=== PATIENT | male | born 1945 | race Caucasian/White ===

== ENCOUNTER 2016-09-10 16:49 | Emergency (ER) | payer OTHER ==
[~2016-09-10] VITALS: Ht 182.9 cm; Wt 136.0 kg
[~2016-09-10 16:49] MED LIST: LNX125 PO; METF-383 PO; METO-479 PO; NITR0.4S UT; SYN137 PO; WARF5TAB90 PO
[2016-09-10 16:53] VITALS: TEMP 36.9; Ht 182.9 cm; Wt 136.0 kg
[2016-09-10] MEDS ORDERED: WARF-246 PO (17:35)
[2016-09-10] MEDS ORDERED: GLC850 PO (17:35)
[2016-09-10] MEDS ORDERED: TPRSR/100 PO ×2 (17:35)
[2016-09-10] MEDS ORDERED: JNV100 PO (17:35)
[2016-09-10] MEDS ORDERED: ROSU5TAB9 PO (17:35)
[2016-09-10] MEDS ORDERED: LEVO137T3 PO (17:35)
[2016-09-10 17:41] LABS: BASO % 0.3 %; BASO ABS # 0.02 K/uL (0-0.2); COMPLETE YES; EOS % 1.3 %; HEMATOCRIT 39.4 % (42-52); IG% 0.2 %; LYMPH ABS # 2.06 K/uL (1.2-3.4); MEAN CELL VOLUME 95.4 fL (80-100); MEAN CORPUSCULAR HEMOGLOBIN 32.7 pg (25-34); MEAN CORPUSCULAR HGB CONC 34.3 g/dl (32-36); MEAN PLATELET VOLUME 10.6 fL (7.4-10.4); MONO % 9.5 %; NEUT % 55.7 %; PLATELET COUNT 168 K/uL (130-400); RED BLOOD COUNT 4.13 M/uL (4.7-6.1); WHITE BLOOD COUNT 6.24 K/uL (4.8-10.8)
--- NOTE | 2016-09-10 17:48 | DIAGNOSTIC IMAGING REPORT ---
SINGLE VIEW CHEST CLINICAL HISTORY: Atypical chest pain. FINDINGS: An AP, portable, upright chest radiograph is compared to study dated 02/06/2015 and correlated with chest CT dated 07/18/2014. The examination is degraded by portable technique and patient rotation. A 2-lead cardiac pacemaker is unchanged in position. The heart is enlarged and there is atherosclerotic calcification of the thoracic aorta. The pulmonary vasculature is noncongested. Bilateral calcified pleural plaques are similar to previous. Chronic interstitial thickening is unchanged. No airspace consolidation or large pleural effusion is identified. No pneumothorax is seen. The skeletal structures are osteopenic. The bony thorax is grossly intact. IMPRESSION: 1. Cardiomegaly and cardiac pacemaker. There is no radiographic evidence of congestive failure. 2. Calcified pleural plaques and chronic changes as above are similar to previous. No airspace consolidation or pleural effusion is seen. Electronically signed by: Teodoro Escalante M.D. 09/10/2016 5:47 PM Dictated Date/Time: 09/10/2016 5:45 PM
[2016-09-10 17:52] LABS: INR 2.6 (0.9-1.1); PARTIAL THROMBOPLASTIN RATIO 1.4; PROTHROMBIN TIME (PATIENT) 28.6 SECONDS (9.0-12.0)
[2016-09-10 17:59] LABS: ALT/SGPT 39 U/L (12-78); AST/SGOT 36 U/L (15-37); BLOOD UREA NITROGEN 12 mg/dl (7-18); BUN/CREATININE RATIO 10.6 (10-20); CALCIUM 8.3 mg/dl (8.5-10.1); CARBON DIOXIDE 27 mmol/L (21-32); CHLORIDE 105 mmol/L (98-107); GLUCOSE 165 mg/dl (70-99); POTASSIUM 4.1 mmol/L (3.5-5.1); SODIUM 139 mmol/L (136-145)
[2016-09-10 18:04] LABS: ALKALINE PHOSPHATASE 42 U/L (45-117); CKMB/CK RATIO 1.3 (0-3.0)
[2016-09-10 21:07] VITALS: BP 143/88; PULSE 60; O2SAT 96
--- NOTE | 2016-09-11 01:03 | EMERGENCY ROOM VISIT NOTE ---
History Report prepared by [place]: Rome Fu Under the Supervision of: Dr. Brett Gonzalez M.D. 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 The pain intensity ranges from 2-4/10. He currently rates a pain intensity of 2/ 10. He took 1 Nitro at home without relief. He was given 3 Nitro and 324 mg aspirin in route to the Emergency Room without relief. As per , the patient looked pale and flushed today. He has a history of cardiac stent placement, myocardial infarction. He has a pacemaker in place. He is on Coumadin. Pt denies recent car trips or plane rides, LOC, headache, lightheadedness, fevers, chills, cough, flu-like symptoms, diaphoresis, visual changes, neck pain , breathing difficulties, nausea, vomiting, abdominal pain, back pain, melena, hematochezia, urinary symptoms, numbness, weakness, lymphadenopathy, rash, or other complaints. Source of History: patient Onset: yesterday Position: chest (left) Symptom Intensity: 2/10 currently Timing: waxes/wanes Modifying Factors (Relieving): other (Nitro and Aspirin without relief) Review of Systems See HPI for pertinent positives and negatives. A total of ten systems were reviewed and were otherwise negative. Past Medical & Surgical Medical Problems: (1) Abdominal contusion (2) Back contusion (3) Diabetes mellitus (4) Fall (5) Heart disease (6) Myocardial infarction (7) Rib contusion (8) Tachy-mirtha syndrome Family History Diabetes mellitus Heart disease Hypertension Social History Smoking Status: Never Smoker Alcohol Use: occasionally Drug Use: none Marital Status: Housing Status: lives with significant other Occupation Status: retired Current/Historical Medications Scheduled Digoxin (Digoxin), 0.125 MG PO DAILY Levothyroxine Sodium (Levothyroxine Sodium), 137 MCG PO DAILY Metformin HCl (Metformin HCl), 850 MG PO BID Metoprolol Succinate (Metoprolol Succinate ER), 100 MG PO QPM Metoprolol Succinate (Metoprolol Succinate ER), 150 MG PO QAM Rosuvastatin Calcium (Rosuvastatin Calcium), 5 MG PO WK Sitagliptin (Januvia), 100 MG PO DAILY Warfarin Sodium (Warfarin Sodium), 10 MG PO DAILY Scheduled PRN Nitroglycerin (Nitrostat), 0.4 MG UT UD PRN for Chest Pain Allergies Uncoded Allergies: PERFUMES/POWDERS (Allergy, Intermediate, WHEEZING/SNEEZING, 07/18/14) Physical Exam Vital Signs Date Time Temp Pulse Resp B/P (MAP) Pulse Ox O2 Delivery O2 Flow Rate FiO2 09/10/16 21:07 60 20 143/88 96 Room Air 09/10/16 20:15 61 20 135/75 96 Room Air 09/10/16 18:18 60 20 136/79 96 09/10/16 17:09 63 09/10/16 16:53 Room Air 09/10/16 16:53 36.9 62 18 139/71 95 Room Air Physical Exam GENERAL: Awake, alert, well-appearing, in no distress HENT: Normocephalic, atraumatic. Oropharynx unremarkable. EYES: Normal conjunctiva. Sclera non-icteric. NECK: Supple. No nuchal rigidity. FROM. No JVD. RESPIRATORY: Clear to auscultation. CARDIAC: Regular rate, normal rhythm. Extremities warm and well perfused. Pulses equal. ABDOMEN: Soft, non-distended. No tenderness to palpation. No rebound or guarding. No masses. RECTAL: Deferred. MUSCULOSKELETAL: Chest examination reveals no tenderness. The back is symmetrical on inspection without obvious abnormality. There is no CVA tenderness to palpation. No joint edema. LOWER EXTREMITIES: Calves are equal size bilaterally and non-tender. Trace edema. No discoloration. NEURO: Normal sensorium. No sensory or motor deficits noted. SKIN: No rash or jaundice noted. Medical Decision & Procedures ER Provider Diagnostic Interpretation: X-ray: Per my interpretation, radiologist review. SINGLE VIEW CHEST CLINICAL HISTORY: Atypical chest pain. FINDINGS: An AP, portable, upright chest radiograph is compared to study dated 02/06/2015 and correlated with chest CT dated 07/18/2014. The examination is degraded by portable technique and patient rotation. A 2-lead cardiac pacemaker is unchanged in position. The heart is enlarged and there is atherosclerotic calcification of the thoracic aorta. The pulmonary vasculature is noncongested. Bilateral calcified pleural plaques are similar to previous. Chronic interstitial thickening is unchanged. No airspace consolidation or large pleural effusion is identified. No pneumothorax is seen. The skeletal structures are osteopenic. The bony thorax is grossly intact. IMPRESSION: 1. Cardiomegaly and cardiac pacemaker. There is no radiographic evidence of congestive failure. 2. Calcified pleural plaques and chronic changes as above are similar to previous. No airspace consolidation or pleural effusion is seen. Electronically signed by: Teodoro Escalante M.D. 09/10/2016 5:47 PM Dictated Date/Time: 09/10/2016 5:45 PM Laboratory Results 09/10/16 17:30 Red Blood Count 4.13, Mean Corpuscular Volume 95.4, Mean Corpuscular Hemoglobin 32.7, Mean Corpuscular Hemoglobin Concent 34.3, Mean Platelet Volume 10.6, Neutrophils (%) (Auto) 55.7, Lymphocytes (%) (Auto) 33.0, Monocytes (%) (Auto) 9.5, Eosinophils (%) (Auto) 1.3, Basophils (%) (Auto) 0.3, Neutrophils # (Auto) 3.48, Lymphocytes # (Auto) 2.06, Monocytes # (Auto) 0.59, Eosinophils # (Auto) 0.08, Basophils # (Auto) 0.02 09/10/16 17:30 Test 09/10/16 17:30 White Blood Count 6.24 K/uL (4.8-10.8) Red Blood Count 4.13 M/uL (4.7-6.1) Hemoglobin 13.5 g/dL (14.0-18.0) Hematocrit 39.4 % (42-52) Mean Corpuscular Volume 95.4 fL (80-100) Mean Corpuscular Hemoglobin 32.7 pg (25-34) Mean Corpuscular Hemoglobin Concent 34.3 g/dl (32-36) Platelet Count 168 K/uL (130-400) Mean Platelet Volume 10.6 fL (7.4-10.4) Neutrophils (%) (Auto) 55.7 % Lymphocytes (%) (Auto) 33.0 % Monocytes (%) (Auto) 9.5 % Eosinophils (%) (Auto) 1.3 % Basophils (%) (Auto) 0.3 % Neutrophils # (Auto) 3.48 K/uL (1.4-6.5) Lymphocytes # (Auto) 2.06 K/uL (1.2-3.4) Monocytes # (Auto) 0.59 K/uL (0.11-0.59) Eosinophils # (Auto) 0.08 K/uL (0-0.5) Basophils # (Auto) 0.02 K/uL (0-0.2) RDW Standard Deviation 47.3 fL (36.4-46.3) RDW Coefficient of Variation 13.5 % (11.5-14.5) Immature Granulocyte % (Auto) 0.2 % Immature Granulocyte # (Auto) 0.01 K/uL (0.00-0.02) Prothrombin Time 28.6 SECONDS (9.0-12.0) Prothromb Time International Ratio 2.6 (0.9-1.1) Activated Partial Thromboplast Time 36.9 SECONDS (21.0-31.0) Partial Thromboplastin Ratio 1.4 Anion Gap 7.0 mmol/L (3-11) Est Creatinine Clear Calc Drug Dose 89.2 ml/min Estimated GFR () 78.4 Estimated GFR (Non- 67.7 BUN/Creatinine Ratio 10.6 (10-20) Calcium Level 8.3 mg/dl (8.5-10.1) Total Bilirubin 0.4 mg/dl (0.2-1) Direct Bilirubin < 0.1 mg/dl (0-0.2) Aspartate Amino Transf (AST/SGOT) 36 U/L (15-37) Alanine Aminotransferase (ALT/SGPT) 39 U/L (12-78) Alkaline Phosphatase 42 U/L (45-117) Total Creatine Kinase 157 U/L (39-308) Creatine Kinase MB 2.0 ng/ml (0.5-3.6) Creatine Kinase MB Ratio 1.3 (0-3.0) Troponin I < 0.015 ng/ml (0-0.045) Total Protein 7.5 gm/dl (6.4-8.2) Albumin 3.5 gm/dl (3.4-5.0) Lipase 171 U/L (73-393) Digoxin Level 0.4 ng/ml (0.8-2.0) Laboratory results reviewed by me ECG Indication: chest pain Rate (beats per minute): 65 Rhythm: other (Atrial paced rhythm) Findings: no acute ischemic change, left axis deviation, no ectopy ED Course 1656: The patient was evaluated in room B12A. A complete history and physical exam was performed. Medication Reconciliation: I attest that I have personally reviewed the patient' s current medication list Blood pressure screening: Patient was found to have an elevated blood pressure and was referred to their primary doctor for recheck and further treatment. 1844: I reevaluated the patient. His pain has resolved. 1858: I discussed the patient's case with Dr. Hogan, sprayer hand with [facility]. He agreed with the plan of getting a second troponin and then having the patient follow up as an outpatient. 1957: I reevaluated the patient. He is agreeable to getting a second troponin. He currently denies any pain and is comfortable with going home. 2114: I reevaluated the patient. Discussed results and discharge instructions: He verbalized understanding and agreement. The patient is ready for discharge. Medical Decision Triage Nursing notes reviewed. The patient's presentation and history were concerning for chest pain. Etiologies such as musculoskeletal, cardiac ischemia, aortic dissection, pulmonary embolism, pneumonia, pneumothorax, infections, gastrointestinal, as well as others were entertained. The patient was evaluated. He has ongoing chest pain since yesterday. He does note a long history of arthritis "throughout his body". His CBC, chemistry panel, LFTs, lipase, and cardiac markers were unremarkable. His INR was therapeutic. The patient had an unremarkable chest x-ray. His ECG was nonischemic. The patient desired to be discharged. He was feeling better spontaneously. He did decline analgesia initially. Nitroglycerin did not help with his pain prehospital or at home. The patient was willing to stay for a repeat troponin and this was done. This was negative. I did discuss the case with Dr. Hogan of cardiology. Given the findings and duration of symptoms it was felt that this was unlikely a cardiac etiology and he will have the patient follow-up in the office. The patient and family felt very comfortable with this plan of conservative management. He will take it easy and rest. If he has any recurrent symptoms she will come back to the emergency department for reevaluation. I gave my usual and customary discussion regarding this issue. By the evaluation outlined above other emergent etiologies such as those listed in the differential, as well as others, were deemed relatively unlikely. The patient and family were informed about the findings as listed above. All questions were answered and they were pleased with the treatment. Return instructions were outlined and the patient was discharged in stable condition. The patient was referred to cardiology for follow-up first thing next week for a recheck of the current condition. The chart was completed utilizing [employer] voice recognition software. Grammatical errors, random word insertions, pronoun errors, and incomplete sentences are an occasional consequence of this system due to software limitations, ambient noise, and hardware issues. Any formal questions or concerns about the content, text, or information contained within the body of this dictation should be directly addressed to the physician for clarification. Consults Time Called: 1848 Consulting Physician: Dr. Hogan, sprayer hand with [facility] Returned Call: 1858 I discussed the patient's case with Dr. Hogan, sprayer hand with [facility]. He agreed with the plan of getting a second troponin and then having the patient follow up as an outpatient. Impression Primary Impression: Left sided chest pain Scribe Attestation The scribe's documentation has been prepared under my direction and personally reviewed by me in its entirety. I confirm that the note above accurately reflects all work, treatment, procedures, and medical decision making performed by me. Departure Information Dispostion Home / Self-Care Referrals Darren Santos M.D. (PCP) Caleb Griffin, DO Forms HOME CARE DOCUMENTATION FORM, IMPORTANT VISIT INFORMATION Patient Instructions My [facility] Additional Instructions CHEST PAIN INSTRUCTIONS: Acetaminophen(Tylenol) may be used for fever or pain. Use 1000mg every six hours as needed. Avoid using more than 4000mg in a 24 hour period. Rest and drink plenty of fluids as tolerated. No strenuous activities until cleared by cardiology. Continue current medications. Avoid strenuous activities and anything that worsens your pain. Return to the ER immediately for worsening or persistent chest pain, abdominal pain, vomiting, fevers, chest pains, difficulty breathing, worsening of your condition, or as needed. Follow up with your sprayer hand on Tuesday for a recheck of your current condition. Call the office at 8:30 AM and tell the certified legal secretary specialist you were in the Emergency Room and on-call cardiology was aware.
[2017-03-01] MEDS ORDERED: ASPEC81 PO (11:12)
[2017-03-01] MEDS ORDERED: PLV75 PO (11:12)
== END 2016-09-10 21:15 | disposition home or self-care (01) ==
LOC: EDBD 16:49 → C.EDB 16:50
DX: R07.9 Chest pain, unspecified (principal); I25.2 Old myocardial infarction; E11.9 Type 2 diabetes mellitus without complications; I49.5 Sick sinus syndrome; I51.7 Cardiomegaly; J92.9 Pleural plaque without asbestos; Z95.5 Presence of coronary angioplasty implant and graft; Z95.0 Presence of cardiac pacemaker; Z79.01 Long term (current) use of anticoagulants; Z79.84 Long term (current) use of oral hypoglycemic drugs; Z83.3 Family history of diabetes mellitus; Z82.49 Family history of ischemic heart disease and other diseases of the circulatory system

== ENCOUNTER 2017-02-26 09:34 | Inpatient (IN) | payer OTHER ==
[~2017-02-26] VITALS: Ht 182.9 cm; Wt 128.0 kg
[~2017-02-26 09:34] MED LIST changes: +GLC850 PO; +JNV100 PO; +LEVO137T3 PO; -METF-383 PO; -METO-479 PO; +ROSU5TAB9 PO; -SYN137 PO; +TPRSR/100 PO; +WARF-246 PO; -WARF5TAB90 PO
[2017-02-26] MEDS ORDERED: NITROGLYCERIN OINT 2% 1GM PACKET EXT ONE (10:00)
[2017-02-26 10:12] LABS: BASO % 0.3 %; BASO ABS # 0.02 K/uL (0-0.2); EOS % 1.9 %; HEMATOCRIT 40.6 % (42-52); IG% 0.2 %; LYMPH % 22.4 %; LYMPH ABS # 1.42 K/uL (1.2-3.4); MEAN CELL VOLUME 96.7 fL (80-100); MEAN CORPUSCULAR HGB CONC 35.2 g/dl (32-36); MEAN PLATELET VOLUME 11.5 fL (7.4-10.4); MONO % 7.3 %; NEUT % 67.9 %; PLATELET COUNT 138 K/uL (130-400); WHITE BLOOD COUNT 6.33 K/uL (4.8-10.8)
[2017-02-26 10:24] LABS: INR 2.2 (0.9-1.1); PARTIAL THROMBOPLASTIN RATIO 1.3; PROTHROMBIN TIME (PATIENT) 24.1 SECONDS (9.0-12.0)
[2017-02-26 10:33] LABS: BUN/CREATININE RATIO 11.2 (10-20); CALCIUM 8.8 mg/dl (8.5-10.1); CREATININE 1.11 mg/dl (0.60-1.40); POTASSIUM 3.9 mmol/L (3.5-5.1)
[2017-02-26 10:44] LABS: CKMB/CK RATIO 2.5 (0-3.0)
--- NOTE | 2017-02-26 10:47 | DIAGNOSTIC IMAGING REPORT ---
CHEST ONE VIEW PORTABLE HISTORY: Atypical CHEST PAIN COMPARISON: Chest 09/10/2016. FINDINGS: Bilateral calcified pleural plaques are again noted. No new focal lung consolidations to suggest pneumonia. No evidence for pulmonary edema. The heart is top normal in size. Left-sided dual-chamber pacemaker. No pleural effusions. No pneumothorax. IMPRESSION: No acute process within the chest. Bilateral calcified pleural plaques are again noted. Electronically signed by: Pio Palencia M.D. 02/26/2017 10:45 AM Dictated Date/Time: 02/26/2017 10:44 AM
[2017-02-26 11:51] LABS: COMPLETE YES
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
[2017-02-26] MEDS ORDERED: NITROGLYCERIN 0.4 MG SL PER TAB CHARGE SL PRN (12:00)
--- NOTE | 2017-02-26 12:01 | History and Physical ---
History & Physical Date & Time of Service: Feb 26, 2017 at 12:01 Chief Complaint: Chest Pain Primary Care Physician: Darren Santos M.D. 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 During these episodes patient denies shortness of breath, lightheadedness, or headache. No abdominal pain. 1 episode of diarrhea but otherwise usual normally formed stool No changes in urination. Patient took nitro to relieve pain at home. received aspirin on ambulance ride. Patient found to have elevated troponin 0.107. EKG atrial paced 77 bpm with left axis deviation and prolonged AV conduction. Patient seen by cardiology Dr. Meyer in the ED. Patient's INR therapeutic level 2.2 Past Medical/Surgical History Medical Problems: (1) Abdominal contusion Status: Resolved (2) Back contusion Status: Resolved (3) Diabetes mellitus Status: Chronic (4) Fall Status: Resolved (5) Heart disease Status: Chronic (6) Myocardial infarction Status: Resolved (7) Rib contusion Status: Resolved (8) Tachy-mirtha syndrome Status: Resolved Family History Diabetes mellitus Heart disease Hypertension Social History Smoking Status: Never Smoker Drug Use: none Marital Status: Occupational Status: retired Immunizations History of Influenza Vaccine: Unknown History of Tetanus Vaccine?: unknown History of Pneumococcal: Unknown History of Hepatitis B Vaccine: Unknown Multi-Drug Resistant Organisms History of MDRO: No Allergies Uncoded Allergies: PERFUMES/POWDERS (Allergy, Intermediate, WHEEZING/SNEEZING, 07/18/14) Home Medications Scheduled Digoxin (Digoxin), 0.125 MG PO DAILY Levothyroxine Sodium (Levothyroxine Sodium), 137 MCG PO DAILY Metformin HCl (Metformin HCl), 850 MG PO BID Metoprolol Succinate (Metoprolol Succinate ER), 100 MG PO QPM Metoprolol Succinate (Metoprolol Succinate ER), 150 MG PO QAM Rosuvastatin Calcium (Rosuvastatin Calcium), 5 MG PO WK Warfarin Sodium (Warfarin Sodium), 10 MG PO DAILY Scheduled PRN Nitroglycerin (Nitrostat), 0.4 MG UT UD PRN for Chest Pain Review of Systems Constitutional: No fever Eyes: No worsening of vision ENT: No hearing loss Respiratory: No cough, No sputum, No wheezing, No shortness of breath, No dyspnea on exertion, No dyspnea at rest, No hemoptysis Cardiovascular: + chest pain, No orthopnea, No edema, No palpitations Abdomen: + diarrhea (1 time), No pain, No nausea, No vomiting, No constipation , No GI bleeding Musculoskeletal: + joint pain (shoulders), + muscle pain (chest), No swelling, No calf pain Genitourinary - Male: No dysuria Neurologic: No numbness/tingling Psychiatric: No substance abuse Endocrine: No fatigue Hematologic / Lymphatic: No abnormal bleeding/bruising, No night sweats Integumentary: No rash, No itch Physical Exam Vital Signs Date Time Temp Pulse Resp B/P (MAP) Pulse Ox O2 Delivery O2 Flow Rate FiO2 02/26/17 11:14 61 135/72 94 Room Air 02/26/17 10:08 60 18 130/78 95 Room Air 02/26/17 09:42 37.2 80 18 126/77 93 Room Air 02/26/17 09:41 70 02/26/17 09:41 93 Room Air General Appearance: WD/WN, no apparent distress Head: normocephalic, atraumatic Eyes: normal inspection, EOMI, sclerae normal ENT: normal ENT inspection, hearing grossly normal, TMs normal, pharynx normal Neck: supple, no JVD, no carotid bruits, trachea midline Respiratory/Chest: chest non-tender, lungs clear, normal breath sounds, no respiratory distress, no accessory muscle use Cardiovascular: regular rate, rhythm, no JVD, normal peripheral pulses Abdomen/GI: normal bowel sounds, non tender, soft, no organomegaly Back: normal inspection, no CVA tenderness, no muscle spasm, normal range of motion Extremities/Musculoskelatal: normal inspection, no calf tenderness, normal capillary refill, no pedal edema, normal range of motion Neurologic/Psych: no motor/sensory deficits, alert, normal mood/affect, oriented x 3 Skin: normal color, warm/dry, no rash Diagnostics Laboratory Results Results Past 24 Hours Test 02/26/17 09:59 Range/Units White Blood Count 6.33 4.8-10.8 K/uL Red Blood Count 4.20 4.7-6.1 M/uL Hemoglobin 14.3 14.0-18.0 g/dL Hematocrit 40.6 42-52 % Mean Corpuscular Volume 96.7 80-100 fL Mean Corpuscular Hemoglobin 34.0 25-34 pg Mean Corpuscular Hemoglobin Concent 35.2 32-36 g/dl Platelet Count 138 130-400 K/uL Mean Platelet Volume 11.5 7.4-10.4 fL Neutrophils (%) (Auto) 67.9 % Lymphocytes (%) (Auto) 22.4 % Monocytes (%) (Auto) 7.3 % Eosinophils (%) (Auto) 1.9 % Basophils (%) (Auto) 0.3 % Neutrophils # (Auto) 4.30 1.4-6.5 K/uL Lymphocytes # (Auto) 1.42 1.2-3.4 K/uL Monocytes # (Auto) 0.46 0.11-0.59 K/uL Eosinophils # (Auto) 0.12 0-0.5 K/uL Basophils # (Auto) 0.02 0-0.2 K/uL RDW Standard Deviation 49.5 36.4-46.3 fL RDW Coefficient of Variation 13.8 11.5-14.5 % Immature Granulocyte % (Auto) 0.2 % Immature Granulocyte # (Auto) 0.01 0.00-0.02 K/uL Red Blood Cell Morphology Unremarkable Prothrombin Time 24.1 9.0-12.0 SECONDS Prothromb Time International Ratio 2.2 0.9-1.1 Activated Partial Thromboplast Time 34.9 21.0-31.0 SECONDS Partial Thromboplastin Ratio 1.3 Sodium Level 136 136-145 mmol/L Potassium Level 3.9 3.5-5.1 mmol/L Chloride Level 102 98-107 mmol/L Carbon Dioxide Level 26 21-32 mmol/L Anion Gap 8.0 3-11 mmol/L Blood Urea Nitrogen 12 7-18 mg/dl Creatinine 1.11 0.60-1.40 mg/dl Est Creatinine Clear Calc Drug Dose 85.8 ml/min Estimated GFR () 77.0 Estimated GFR (Non- 66.5 BUN/Creatinine Ratio 11.2 10-20 Random Glucose 280 70-99 mg/dl Calcium Level 8.8 8.5-10.1 mg/dl Total Bilirubin 0.8 0.2-1 mg/dl Direct Bilirubin 0.2 0-0.2 mg/dl Aspartate Amino Transf (AST/SGOT) 29 15-37 U/L Alanine Aminotransferase (ALT/SGPT) 40 12-78 U/L Alkaline Phosphatase 48 45-117 U/L Total Creatine Kinase 84 39-308 U/L Creatine Kinase MB 2.1 0.5-3.6 ng/ml Creatine Kinase MB Ratio 2.5 0-3.0 Troponin I 0.107 0-0.045 ng/ml Total Protein 7.5 6.4-8.2 gm/dl Albumin 3.4 3.4-5.0 gm/dl Lipase 135 73-393 U/L Diagnostic Radiology CXR Bilateral calcified pleural plaques are again noted. No new focal lung consolidations to suggest pneumonia. No evidence for pulmonary edema. The heart is top normal in size. Left-sided dual-chamber pacemaker. No pleural effusions. No pneumothorax. CXR normal EKG EKG atrial paced 77 bpm with left axis deviation and prolonged AV conduction Impression Assessment and Plan Chest pain with elevated troponin -received aspirin on ambulance ride -Patient found to have elevated troponin 0.107. EKG atrial paced 77 bpm with left axis deviation and prolonged AV conduction -continue home dose Metoprolol Succinate 100 mg qhs and 150 mg daily in the AM -Crestor 5 mg daily -trend troponins, echocardiogram, NPO after midnight if need further cardiac intervention -observation Telemetry -patient seen by cardiology Dr. Meyer on hospital admission, cardiology service to follow patient On anticoagulation coumadin 10 mg daily for history of PCI/stent LCx 2003 with pacemaker -continue coumadin and trend INR -continue home dose digoxin, check digoxin level Diabetes HbA1c is 8 -hold home dose BID metformin, give sliding scale insulin for now Hypothyroidism -137 microgram daily, check TSH level DVT ppx: on coumadin Full Code, next of kin is [place] Celeste [phone] Level of Care Telemetry Resuscitation Status FULL RESUSCITATION VTE Prophylaxis VTE Risk Assessment Done? Y/N: Yes Risk Level: Moderate Given or contraindicated: Warfarin (Coumadin)
[2017-02-26 12:30] VITALS: BP 128/71; PULSE 63; TEMP 37; O2SAT 92; BMI 39.5
[2017-02-26] MEDS ORDERED: NURSING VERBAL MED ORDER ONE ×2 (13:30)
[2017-02-26 13:31] LABS: ESTIMATED AVERAGE GLUCOSE 183 mg/dl; HA1C FLAG Normal (Normal)
[2017-02-26 13:44] LABS: CHOLESTEROL/HDL RATIO 3.4; THYROID STIMULATING HORMONE 1.49 uIu/ml (0.300-4.500)
[2017-02-26] MEDS ORDERED: GLUCAGON FOR INJ 1 MG VIAL SQ PRN (14:00)
[2017-02-26] MEDS ORDERED: GLUCOSE 40% GEL 15 GM TUBE PO PRN (14:00)
[2017-02-26] MEDS ORDERED: GLUCOSE 10 TABS/TUBE PO PRN (14:00)
[2017-02-26] MEDS ORDERED: DEXTROSE 50% 50 ML SYR IV PRN (14:00)
[2017-02-26] MEDS ORDERED: IV FLUIDS COMPLETED PRN (14:30)
--- NOTE | 2017-02-26 15:11 | Progress Note ---
Progress Note Date of Service Feb 26, 2017. Progress Note Called by nurse in regards to second troponin level 0.364 which is an increase from first troponin of 0.107. Patient seen and examined at the bedside. Denies acute chest pain since he was last seen by Dr. Meyer and I in the Emergency room. Telemetry monitoring reviewed and no obvious runs of tachycardia other than artifacts and PVCs. Patient's EKG appears to have some flattening of T waves in leads II and III. Patient otherwise well in appearance and breathing comfortably on room air. Have asked nurse to inform Dr. Meyer about troponin results. As per nurse, Dr. Meyer does not require heparin drip to be started unless there is chest pain symptoms
[2017-02-26 15:22] VITALS: BP 134/71; PULSE 61; TEMP 36.9; O2SAT 95
[2017-02-26] MEDS ORDERED: WARFARIN SOD 5 MG TAB PO SCH (16:00)
[2017-02-26] MEDS: INSULIN ASPART 100 UNITS/ML 3 ML PEN SC SCH ×2 (16:42→20:21)
[2017-02-26] MEDS ORDERED: METFORMIN HCL 850 MG TAB PO SCH (16:45)
--- NOTE | 2017-02-26 17:07 | EMERGENCY ROOM VISIT NOTE ---
History Report prepared by Shasta: Dee Schmidt Under the Supervision of: Dr. Brett Gonzalez M.D. First contact with patient: 09:43 Chief Complaint: CHEST PAIN Stated Complaint: CHEST PAIN Nursing Triage Summary: pt to room b04b via als. pt reports last night episode of chest pain in which he took 3 nitro and pain decreased but did not go away. pt reports this am when he woke he had no pain but then after eating rice chex he again had upper chest pain with radiation to bilat arms and back and took 2 nitro with some relief. pt reports hx of CAD, TX, stent placement, a fib and pacemaker. pt recieved en route to hospital 2 additional nitro and 324mg asa. History of Present Illness The patient is a 71 year old male who presents to the Emergency Room with complaints of constant chest pain beginning last night. The patient reports that he too three nitroglycerin last night with some relief. He notes that his pain began when he was sitting at rest. He states that his arm started to feel heavy when he was walking around last night. Presently, the patient notes some chest discomfort. He reports that at it's worst his pain was a 6/10 but it is now a 2/10. The patient took 2 nitroglycerin this morning and was given two nitroglycerin and a 324 mg of aspirin in the ambulance on his way to the hospital. The patient stated that when his pain didn't resolve this morning he thought he should come into the ED to get checked out. He also reports that his pain is not like when he had his last heart attack. The patient was seen in the ED in September for chest pain. Per family, the patient looked pale when his episode began last night. The patient has a history of CAD, TX, stent placement, arthritis, a fib and pacemaker. Pt notes some diarrhea but denies LOC, headache , sweating during the episode, fevers, chills, visual changes, neck pain, chest muscle soreness, swelling in his legs, breathing difficulties, nausea, vomiting , abdominal pain, back pain, melena, hematochezia, urinary symptoms, numbness, weakness, lymphadenopathy, rash, or other complaints. Source of History: patient Onset: last night Position: chest Symptom Intensity: 2/10 Timing: constant Modifying Factors (Relieving): other (nitroglycerin) Associated Symptoms: + chest pain, + diarrhea, No LOC, No weakness, No numbness Review of Systems See HPI for pertinent positives and negatives. A total of ten systems were reviewed and were otherwise negative. Past Medical & Surgical Medical Problems: (1) Abdominal contusion (2) Back contusion (3) Diabetes mellitus (4) Fall (5) Heart disease (6) Myocardial infarction (7) Rib contusion (8) Tachy-mirtha syndrome Family History Diabetes mellitus Heart disease Hypertension Social History Smoking Status: Never Smoker Alcohol Use: occasionally Drug Use: none Marital Status: Housing Status: lives with significant other Occupation Status: retired Current/Historical Medications Scheduled Digoxin (Digoxin), 0.125 MG PO DAILY Levothyroxine Sodium (Levothyroxine Sodium), 137 MCG PO DAILY Metformin HCl (Metformin HCl), 850 MG PO BID Metoprolol Succinate (Metoprolol Succinate ER), 100 MG PO QPM Metoprolol Succinate (Metoprolol Succinate ER), 150 MG PO QAM Rosuvastatin Calcium (Rosuvastatin Calcium), 5 MG PO WK Warfarin Sodium (Warfarin Sodium), 10 MG PO DAILY Scheduled PRN Nitroglycerin (Nitrostat), 0.4 MG UT UD PRN for Chest Pain Allergies Uncoded Allergies: PERFUMES/POWDERS (Allergy, Intermediate, WHEEZING/SNEEZING, 07/18/14) Physical Exam Vital Signs Date Time Temp Pulse Resp B/P (MAP) Pulse Ox O2 Delivery O2 Flow Rate FiO2 02/26/17 11:14 61 135/72 94 Room Air 02/26/17 10:08 60 18 130/78 95 Room Air 02/26/17 09:42 37.2 80 18 126/77 93 Room Air 02/26/17 09:41 70 02/26/17 09:41 93 Room Air Physical Exam GENERAL: Awake, alert, well-appearing, in no distress HENT: Normocephalic, atraumatic. Oropharynx unremarkable. EYES: Normal conjunctiva. Sclera non-icteric. NECK: Supple. No nuchal rigidity. FROM. No JVD. RESPIRATORY: Clear to auscultation. CARDIAC: Regular rate, normal rhythm. Extremities warm and well perfused. Pulses equal. ABDOMEN: Soft, non-distended. No tenderness to palpation. No rebound or guarding. No masses. RECTAL: Deferred. MUSCULOSKELETAL: Chest examination reveals no tenderness. The back is symmetrical on inspection without obvious abnormality. There is no CVA tenderness to palpation. No joint edema. LOWER EXTREMITIES: Calves are equal size bilaterally and non-tender. No edema. No discoloration. NEURO: Normal sensorium. No sensory or motor deficits noted. SKIN: No rash or jaundice noted. Medical Decision & Procedures ER Provider Diagnostic Interpretation: Radiology results as stated below per my review and radiologist interpretation: CHEST ONE VIEW PORTABLE FINDINGS: Bilateral calcified pleural plaques are again noted. No new focal lung consolidations to suggest pneumonia. No evidence for pulmonary edema. The heart is top normal in size. Left-sided dual-chamber pacemaker. No pleural effusions. No pneumothorax. IMPRESSION: No acute process within the chest. Bilateral calcified pleural plaques are again noted. Electronically signed by: Pio Palencia M.D. Laboratory Results 02/26/17 09:59 Red Blood Count 4.20, Mean Corpuscular Volume 96.7, Mean Corpuscular Hemoglobin 34.0, Mean Corpuscular Hemoglobin Concent 35.2, Mean Platelet Volume 11.5, Neutrophils (%) (Auto) 67.9, Lymphocytes (%) (Auto) 22.4, Monocytes (%) (Auto) 7.3, Eosinophils (%) (Auto) 1.9, Basophils (%) (Auto) 0.3, Neutrophils # (Auto) 4.30, Lymphocytes # (Auto) 1.42, Monocytes # (Auto) 0.46, Eosinophils # (Auto) 0.12, Basophils # (Auto) 0.02 02/26/17 09:59 Test 02/26/17 09:59 White Blood Count 6.33 K/uL (4.8-10.8) Red Blood Count 4.20 M/uL (4.7-6.1) Hemoglobin 14.3 g/dL (14.0-18.0) Hematocrit 40.6 % (42-52) Mean Corpuscular Volume 96.7 fL (80-100) Mean Corpuscular Hemoglobin 34.0 pg (25-34) Mean Corpuscular Hemoglobin Concent 35.2 g/dl (32-36) Platelet Count 138 K/uL (130-400) Mean Platelet Volume 11.5 fL (7.4-10.4) Neutrophils (%) (Auto) 67.9 % Lymphocytes (%) (Auto) 22.4 % Monocytes (%) (Auto) 7.3 % Eosinophils (%) (Auto) 1.9 % Basophils (%) (Auto) 0.3 % Neutrophils # (Auto) 4.30 K/uL (1.4-6.5) Lymphocytes # (Auto) 1.42 K/uL (1.2-3.4) Monocytes # (Auto) 0.46 K/uL (0.11-0.59) Eosinophils # (Auto) 0.12 K/uL (0-0.5) Basophils # (Auto) 0.02 K/uL (0-0.2) RDW Standard Deviation 49.5 fL (36.4-46.3) RDW Coefficient of Variation 13.8 % (11.5-14.5) Immature Granulocyte % (Auto) 0.2 % Immature Granulocyte # (Auto) 0.01 K/uL (0.00-0.02) Red Blood Cell Morphology Unremarkable Prothrombin Time 24.1 SECONDS (9.0-12.0) Prothromb Time International Ratio 2.2 (0.9-1.1) Activated Partial Thromboplast Time 34.9 SECONDS (21.0-31.0) Partial Thromboplastin Ratio 1.3 Anion Gap 8.0 mmol/L (3-11) Est Creatinine Clear Calc Drug Dose 85.8 ml/min Estimated GFR () 77.0 Estimated GFR (Non- 66.5 BUN/Creatinine Ratio 11.2 (10-20) Estimated Average Glucose 183 mg/dl Hemoglobin A1c 8.0 % (4.5-5.6) Calcium Level 8.8 mg/dl (8.5-10.1) Total Bilirubin 0.8 mg/dl (0.2-1) Direct Bilirubin 0.2 mg/dl (0-0.2) Aspartate Amino Transf (AST/SGOT) 29 U/L (15-37) Alanine Aminotransferase (ALT/SGPT) 40 U/L (12-78) Alkaline Phosphatase 48 U/L (45-117) Total Creatine Kinase 84 U/L (39-308) Creatine Kinase MB 2.1 ng/ml (0.5-3.6) Creatine Kinase MB Ratio 2.5 (0-3.0) Total Protein 7.5 gm/dl (6.4-8.2) Albumin 3.4 gm/dl (3.4-5.0) Triglycerides Level 128 mg/dl (0-150) Cholesterol Level 140 mg/dl (0-200) HDL Cholesterol 41 mg/dl LDL Cholesterol, Calculated 73 mg/dl VLDL Cholesterol, Calculated 26 mg/dl Cholesterol/HDL Ratio 3.4 Lipase 135 U/L (73-393) Thyroid Stimulating Hormone (TSH) 1.490 uIu/ml (0.300-4.500) Laboratory results reviewed by me Medications Administered Medications (Trade) Dose Ordered Sig/Jose Manuel Route Start Time Stop Time Status Last Admin Dose Admin Nitroglycerin (Nitroglycerin 2% Oint) 0.5 inch NOW ONCE EXT 02/26/17 10:00 02/26/17 10:01 DC 02/26/17 10:10 0.5 INCH ECG Indication: chest pain Rate (beats per minute): 77 Rhythm: other (paced rhythm) Findings: no acute ischemic change, left axis deviation, no ectopy Comparison ECG Date: Pre-hospital EKG-Paced rhythm 94 bpm no ischemia no ectopy ED Course 0951: The patient was evaluated in room B4B. A complete history and physical exam was performed. 1000: Nitroglycerin 0.5 inch EXT. 1053: Discussed the patient's case with Dr. Santana Cardiology. He will come in and evaluate the patient. 1125: Discussed the patient's case with Dr. Cruz. The patient will be evaluated for further treatment and disposition. Medical Decision Triage Nursing notes reviewed. The patient's presentation and history were concerning for chest pain. Etiologies such as cardiac ischemia, aortic dissection, pulmonary embolism, pneumonia, pneumothorax, musculoskeletal, infections, gastrointestinal, as well as others were entertained. The patient was evaluated. Clinically is doing well. Prehospital ECG did not reveal any ischemic change. He had nitroglycerin paste applied. He had already been given aspirin. Labs revealed unremarkable CBC and Chemistry panel. The patient has a therapeutic INR. His troponin is mildly elevated concerning for non-ST elevation TX. ECG did not reveal any acute ischemic change. Chest x-ray as above. The patient was educated. Family was informed. I did discuss the case with cardiology as well as internal medicine. The patient was evaluated in the Emergency Room and admitted for further treatment. Blood Pressure Screening Patient's blood pressure: Elevated blood pressure Blood pressure disposition: Referred to PCP (to hospitalist) Consults Time Called: 1050 Consulting Physician: Dr. Santana Cardiology Returned Call: 1053 Discussed the patient's case. He will come in and evaluate the patient. Additional Consults: Time Called: 1123 Consulted Physician: Dr. Jass Da Silva hospitalist Returned Call: 1122 Additional Comments: Discussed the patient's case. The patient will be evaluated for further treatment and disposition. Impression Primary Impression: NSTEMI (non-ST elevated myocardial infarction) Critical Care I have personally spent greater than 30 minutes of critical care time in the direct management of this patient. This includes bedside care, interpretation of diagnostic studies, and testing, discussion with consultants, patient, and family members, and other required patient management activities. This 30 minutes is in excess of all separately billable procedures. Scribe Attestation The scribe's documentation has been prepared under my direction and personally reviewed by me in its entirety. I confirm that the note above accurately reflects all work, treatment, procedures, and medical decision making performed by me. Departure Information Dispostion Being Evaluated By Hospitalist Darren Lawson M.D. (PCP) Patient Instructions My [facility]
[2017-02-26] MEDS: DIGOXIN 0.125 MG TAB PO SCH (17:11)
[2017-02-26 19:13] VITALS: BP 134/77; PULSE 61; TEMP 36.6; O2SAT 95
[2017-02-26] MEDS: METOPROLOL SUCC 50MG EXT REL TAB PO SCH (20:54)
[2017-02-26 23:41] VITALS: BP 127/76; PULSE 64; TEMP 36.9; O2SAT 96
[2017-02-27 03:45] VITALS: BP 122/73; PULSE 59; TEMP 37; O2SAT 96
[2017-02-27] MEDS: LEVOTHYROXINE 137 MCG TAB PO SCH (06:15)
[2017-02-27 06:19] LABS: INR 2.2 (0.9-1.1); PROTHROMBIN TIME (PATIENT) 24.6 SECONDS (9.0-12.0)
[2017-02-27 06:43] LABS: MEAN CELL VOLUME 96.3 fL (80-100); MEAN CORPUSCULAR HEMOGLOBIN 32.6 pg (25-34); MEAN CORPUSCULAR HGB CONC 33.8 g/dl (32-36); MEAN PLATELET VOLUME 11.9 fL (7.4-10.4); PLATELET COUNT 140 K/uL (130-400); RED BLOOD COUNT 4.36 M/uL (4.7-6.1); WHITE BLOOD COUNT 6.89 K/uL (4.8-10.8)
[2017-02-27 06:44] LABS: BASO % 0.4 %; BASO ABS # 0.03 K/uL (0-0.2); COMPLETE YES; EOS % 3.3 %; IG% 0.3 %; LYMPH % 32.5 %; LYMPH ABS # 2.24 K/uL (1.2-3.4); MONO % 8.6 %; NEUT % 54.9 %
[2017-02-27 07:01] LABS: ALB/GLOB RATIO 0.9 (0.9-2); BUN/CREATININE RATIO 10.9 (10-20); CALCIUM 8.6 mg/dl (8.5-10.1); CREATININE 0.89 mg/dl (0.60-1.40); POTASSIUM 3.8 mmol/L (3.5-5.1)
[2017-02-27 07:59] VITALS: BP 145/82; PULSE 61; TEMP 37.1; O2SAT 94
--- NOTE | 2017-02-27 08:25 | ECHOCARDIOGRAM REPORT ---
*NOTICE TO RECEIVING DEMOCRAT AGENCY This information is strictly Confidential and protected under [place] law. [place] law prohibits you from making any further disclosure of this information unless further disclosure is expressly permitted by the written consent of the person to whom it pertains or is authorized by law. A general authorization for the release of medical or other information is not sufficient for this purpose. Hospital accepts no responsibility if the information is made available to any other person, INCLUDING THE PATIENT. Interpretation Summary * Name: SHIRA CUETO Study Date: 02/27/2017 07:52 AM BP: 127/81 mmHg * Patient Location: .2T\S\E218\S\1 HR: 63 * : 1945 (M/d/yyyy) Gender: Male Height: 72 in * Age: 71 yrs Ethnicity: CA Weight: 291 lb * Ordering Physician: Salvatore Regan * Referring Physician: Self, Referred * Performed By: Portia Campo RDCS * * Reason For Study: Chest Pain * BSA: 2.5 m2 * -- Conclusions -- * The left ventricle is normal in size. * Left ventricular systolic function is normal. * Ejection Fraction = 55-60%. * The right ventricular systolic function is normal. * The left atrial size is normal. * Right atrial size is normal. * No significant valvular pathology. Procedure Details * A complete two-dimensional transthoracic echocardiogram was performed (2D, M-mode, Doppler and color flow Doppler). Left Ventricle * The left ventricle is normal in size. * Ejection Fraction = 55-60%. * Left ventricular systolic function is normal. * The left ventricular wall motion is normal. Right Ventricle * The right ventricle is normal size. * There is a pacemaker lead in the right ventricle. * The right ventricular systolic function is normal. Atria * The left atrial size is normal. * Right atrial size is normal. * The interatrial septum is intact with no evidence for an atrial septal defect. Mitral Valve * The mitral valve anatomy is normal. * There is trace mitral regurgitation. Tricuspid Valve * The tricuspid valve anatomy is normal. * Significant tricuspid regurgitation is absent. Aortic Valve * The aortic valve is tricuspid. The leaflet thickness if normal. There is no aortic stenosis, and no significant insufficiency. * No hemodynamically significant valvular aortic stenosis. * There is no significant aortic regurgitation. Pulmonic Valve * The pulmonic valve is not well visualized. Pericardium/Pleural * There is no pericardial effusion. MMode 2D Measurements and Calculations IVSd 1.1 cm IVSs 1.4 cm LVIDd 5.1 cm LVIDs 3.1 cm LVPWd 1.1 cm LVPWs 1.6 cm IVS/LVPW 0.99 FS 38.7 % EDV(Teich) 125.3 ml ESV(Teich) 39.2 ml EF(Teich) 68.7 % EDV(cubed) 134.7 ml ESV(cubed) 31.1 ml EF(cubed) 76.9 % % IVS thick 30.5 % % LVPW thick 55.5 % LV mass(C)d 203.6 grams LV mass(C)dI 81.5 grams/m\S\2 LV mass(C)s 169.3 grams LV mass(C)sI 67.7 grams/m\S\2 SV(Teich) 86.0 ml SI(Teich) 34.4 ml/m\S\2 SV(cubed) 103.6 ml SI(cubed) 41.5 ml/m\S\2 Ao root diam 3.4 cm Ao root area 8.9 cm\S\2 ACS 2.1 cm LA dimension 4.1 cm LA/Ao 1.2 LVAd ap4 31.5 cm\S\2 LVLd ap4 8.9 cm EDV(MOD-sp4) 96.2 ml EDV(sp4-el) 95.0 ml LVAs ap4 18.9 cm\S\2 LVLs ap4 7.8 cm ESV(MOD-sp4) 43.3 ml ESV(sp4-el) 39.1 ml EF(MOD-sp4) 55.0 % EF(sp4-el) 58.9 % LVAd ap2 32.5 cm\S\2 LVLd ap2 9.1 cm EDV(MOD-sp2) 100.0 ml EDV(sp2-el) 98.0 ml LVAs ap2 19.9 cm\S\2 LVLs ap2 7.8 cm ESV(MOD-sp2) 47.4 ml ESV(sp2-el) 42.8 ml EF(MOD-sp2) 52.6 % EF(sp2-el) 56.3 % LVLd %diff 3.2 % EDV(MOD-bp) 99.5 ml LVLs %diff 0.77 % ESV(MOD-bp) 45.0 ml EF(MOD-bp) 54.7 % SV(MOD-sp4) 52.9 ml SI(MOD-sp4) 21.2 ml/m\S\2 SV(MOD-sp2) 52.6 ml SI(MOD-sp2) 21.0 ml/m\S\2 SV(MOD-bp) 54.4 ml SI(MOD-bp) 21.8 ml/m\S\2 SV(sp4-el) 56.0 ml SI(sp4-el) 22.4 ml/m\S\2 SV(sp2-el) 55.2 ml SI(sp2-el) 22.1 ml/m\S\2 Doppler Measurements and Calculations MV E max neil 72.9 cm/sec MV A max neil 66.8 cm/sec MV E/A 1.1 MV dec time 0.29 sec Ao V2 max 119.4 cm/sec Ao max PG 5.7 mmHg Ao max PG (full) 0.61 mmHg LV V1 max PG 5.1 mmHg LV V1 max 112.8 cm/sec PA V2 max 102.7 cm/sec PA max PG 4.2 mmHg TR max neil 254.2 cm/sec
[2017-02-27] MEDS: INSULIN ASPART 100 UNITS/ML 3 ML PEN SC SCH ×4 (08:52→20:32)
[2017-02-27] MEDS ORDERED: PHYTONADIONE 5 MG TAB PO STA (09:23)
[2017-02-27] MEDS ORDERED: ASPIRIN 81 MG ECTAB PO STA (09:25)
[2017-02-27] MEDS ORDERED: DC ALL ANTICOAGULANTS ONE (09:30)
[2017-02-27] MEDS ORDERED: CLOPIDOGREL BISULFATE 75 MG TAB PO ONE (09:30)
--- NOTE | 2017-02-27 09:54 | PROGRESS NOTE ---
DATE: 02/27/2017 FOLLOWUP VISIT SUBJECTIVE: The patient is a 71-year-old male with a history of previous chronic atrial fibrillation, tachybrady syndrome and status post permanent pacemaker. The patient was admitted with chest pain. He had similar chest pain in September and at that time, underwent a nuclear stress test that showed an inferior, posterior and lateral myocardial infarction with some campos-infarct ischemia. It was decided to treat him medically. He has done well over the past several months, but as outlined above, he had additional chest pain and was admitted to the hospital. His EKG had no acute changes. His cardiac markers are mildly elevated. He has not had a return of his chest pain and is being admitted to the hospital. OBJECTIVE: GENERAL: He is alert and oriented. VITAL SIGNS: Blood pressure is 140/80. Pulse is regular at 60. He is afebrile. HEENT: He is normocephalic. Pupils are equal and reactive to light. Extraocular muscles are intact bilaterally. NECK: The neck veins are flat. Carotids have good upstrokes bilaterally without bruits. Thyroid is nonpalpable. RESPIRATORY: Breath sounds equal bilaterally and clear to auscultation. CARDIOVASCULAR: Heart has a regular rhythm. Normal S1 and S2. No S3 or S4. No cardiac rubs or murmurs. GASTROINTESTINAL: Abdomen is soft and nontender without organomegaly. EXTREMITIES: Free of edema, digit clubbing, or cyanosis. NEUROLOGIC: Grossly intact. SKIN: Warm to touch. LYMPH NODES: Negative to palpation. LABORATORY DATA: INR is 2.2 today. Troponin is 0.43. Creatinine is 0.89 and potassium is 3.8. IMPRESSION: 1. Angina. 2. Known coronary artery disease with previous inferior, posterior and lateral infarct and on a recent nuclear stress test campos-infarct ischemia. 3. Diabetes mellitus. 4. Chronic atrial fibrillation. 5. Permanent pacemaker for tachybrady syndrome. 6. Diabetes. 7. Dyslipidemia with statin intolerance. RECOMMENDATIONS: The patient I believe should undergo a cardiac catheterization. I have explained the risk, benefit and intent to the patient including the potential for catheter based intervention such as balloon angioplasty or intracoronary stenting. The patient is agreeable and we will proceed to the cardiac catheterization tomorrow provided that the patient remains stable. I will reverse his warfarin with vitamin K today. He will be started on aspirin and Plavix.
[2017-02-27] MEDS: ROSUVASTATIN CALCIUM 5 MG TAB PO SCH (10:03)
[2017-02-27] MEDS: METOPROLOL SUCC 50MG EXT REL TAB PO SCH ×2 (10:03→20:29)
[2017-02-27 11:35] VITALS: BP 140/76; PULSE 68; TEMP 37.2; O2SAT 94
[2017-02-27 15:20] VITALS: BP 152/76; PULSE 62; TEMP 36.9; O2SAT 94
[2017-02-27] MEDS: DIGOXIN 0.125 MG TAB PO SCH (16:24)
--- NOTE | 2017-02-27 18:38 | Progress Note ---
Internal Med Progress Note Date of Service: Feb 27, 2017. Provider Documentation: SUBJECTIVE: no complain of chest pain scheduled for cardiac cath tomorrow OBJECTIVE: Vital Signs-as noted below Exam: General-no sign of distress, comfortable , conversing Eyes-sclera non icteric , PERRLA/EOMI ENT-moist oral mucosa , normal oropharynx Neck-no thyromegaly , trachea midline Lungs-clear to auscultate , no wheeze or rales Heart-regular S1/S2, no JVD , no lower ext edema Abdomen-soft, non tender Extremities-no rash or deformity Neuro-AAO x3, no focal neurological deficit Lab data as noted below. ASSESSMENT & PLAN: UNSTABLE ANGINA : presented with JEFFRIES , chest heaviness has been having JEFFRIES , heaviness on chest with activity and ambulation for past 1 week had persisted substernal chest heaviness with SOB , diaphoresis , dizzy spell prior to admission symptom improved with Nitro Paste , Aspirin in ED -no ischemic change in EKG mild elevation of troponin pt has known CAD with recent Nc stress test noted to have campos-infract ischemia /ECHO noted to have hypokinesis noted in inferior , post , lateral wall -medical management was recommended as pt did not had angina symptom that point appreciate input from Cardiology given significant cardiac risk factor and ongoing anginal symptom pt will have cardiac cath tomorrow AM pt is started on Aspirin , Plavix cont Beta veda Vit K given for INR 2.2 hold Coumadin CHRONIC AFIB ; cont on digoxin , beta veda Coumadin on hold Vit K given to reverse INR HX OF TACHYBRADY SYNDROME : S/P Pacemaker placement TYPE 2 DM : insulin sliding scale DVT PROPHYLAXIS INR ~2 FULL CODE DISPOSITION expected to return home when medically stable Vital Signs: Date Time Temp Pulse Resp B/P (MAP) Pulse Ox O2 Delivery O2 Flow Rate FiO2 02/28/17 05:33 36.6 73 16 143/79 95 Room Air 02/28/17 04:49 73 143/79 (100) 95 Room Air 02/28/17 04:47 64 16 142/79 (100) 96 Room Air 02/28/17 04:24 36.6 65 19 139/82 (101) 95 Room Air 02/28/17 04:06 Room Air 02/28/17 00:10 36.8 66 18 125/76 (92) 93 Room Air 02/28/17 00:02 Room Air 02/27/17 20:00 Room Air 02/27/17 18:58 36.9 62 19 122/66 (84) 94 Room Air 02/27/17 16:24 62 02/27/17 16:00 Room Air 02/27/17 15:20 36.9 62 18 152/76 (101) 94 Room Air 02/27/17 12:00 Room Air 02/27/17 11:35 37.2 68 19 140/76 (97) 94 Room Air 02/27/17 08:00 Room Air 02/27/17 07:59 37.1 61 20 145/82 (103) 94 Room Air Lab Results: Results Past 24 Hours Test 02/27/17 11:14 02/27/17 16:25 02/27/17 19:56 02/28/17 06:24 Range/Units Bedside Glucose 189 118 145 150 70-99 mg/dl Test 02/28/17 06:36 Range/Units Prothrombin Time 17.2 9.0-12.0 SECONDS Prothromb Time International Ratio 1.6 0.9-1.1
[2017-02-27 18:58] VITALS: BP 122/66; PULSE 62; TEMP 36.9; O2SAT 94
[2017-02-27] MEDS: SODIUM CHLORIDE 0.9% 1000ML 1,000 ML IV SCH (23:50)
[2017-02-28] VITALS (19 sets, daily range): BP systolic 122–153; BP diastolic 68–82; PULSE 58–73; TEMP 36.5–36.9; O2SAT 92–96
[2017-02-28] MEDS: LEVOTHYROXINE 137 MCG TAB PO SCH (06:17)
[2017-02-28 07:01] LABS: INR 1.6 (0.9-1.1); PROTHROMBIN TIME (PATIENT) 17.2 SECONDS (9.0-12.0)
[2017-02-28] MEDS: METOPROLOL SUCC 50MG EXT REL TAB PO SCH ×2 (07:44→20:31)
[2017-02-28] MEDS: SODIUM CHLORIDE 0.9% 1000ML 1,000 ML IV SCH ×3 (07:44→20:32)
[2017-02-28] MEDS: ASPIRIN 81 MG ECTAB PO SCH (07:44)
[2017-02-28] MEDS: ROSUVASTATIN CALCIUM 5 MG TAB PO SCH (07:44)
[2017-02-28] MEDS: CLOPIDOGREL BISULFATE 75 MG TAB PO SCH (07:44)
[2017-02-28] MEDS: INSULIN ASPART 100 UNITS/ML 3 ML PEN SC SCH ×4 (07:49→20:32)
--- NOTE | 2017-02-28 09:14 | Cardiology Follow-Up ---
Subjective General Date of Service: Feb 28, 2017. Chief Complaint: follow up chest pain, NSTEMI Pt evaluation today including: conversation w/ patient, conversation w/ family , physical exam, chart review, lab review, review of studies History of Present Illness The patient is a 71 year old male seen in cardiology follow up , with initial consultation having been performed by Dr Meyer. Pt comfortable during my assessment at 9 am. Had recurrent chest pain at just before 8 am this am , for which he received SL nitro x 1 with resolution of the symptoms which had occurred at rest. Patient describes episodic chest tightness with associated shortness of breath onset 2 days ago. Happens at rest or with minimal activity. Initial EKG on 02/26/[address] depression, which has since resolved. No ST changes on tracings this am , that were performed at the [facility] of recurrent symptoms. Allergies Uncoded Allergies: PERFUMES/POWDERS (Allergy, Intermediate, WHEEZING/SNEEZING, 07/18/14) Social History Smoking Status: Never Smoker Hx Tobacco Use In Past Year?: No Hx Alcohol Use - Type And Amou: No Hx Substance Use - Type And Am: No Problem List Medical Problems: (1) NSTEMI (non-ST elevated myocardial infarction) Status: Acute Physical Exam Vital Signs Last Vital Signs Documentation Date Time Temp Pulse Resp B/P (MAP) Pulse Ox O2 Delivery O2 Flow Rate FiO2 02/28/17 05:33 36.6 73 16 143/79 95 Room Air Physical Exam Constitutional: Level of Distress: NAD Head: normocephalic Neck: supple Lungs: Auscultation: no wheezing, no rales/crackles, no rhonchi Cardiovascular: Heart Auscultation: RRR, no murmurs, no rubs, no gallops Extremities: no edema, no varicosities, pertinent finding (2+ bilateral radial artery pulses ) Neurologic: Gait & Station: pertinent finding (no focal deficits ) Assessment and Plan Assessment and Plan Summary of TTecho performed 02/27/17: * -- Conclusions -- * The left ventricle is normal in size. * Left ventricular systolic function is normal. * Ejection Fraction = 55-60%. * The right ventricular systolic function is normal. * The left atrial size is normal. * Right atrial size is normal. * No significant valvular pathology. Last Resulted 02/27/17 05:49 Red Blood Count 4.36, Mean Corpuscular Volume 96.3, Mean Corpuscular Hemoglobin 32.6, Mean Corpuscular Hemoglobin Concent 33.8, Mean Platelet Volume 11.9, Neutrophils (%) (Auto) 54.9, Lymphocytes (%) (Auto) 32.5, Monocytes (%) (Auto) 8.6, Eosinophils (%) (Auto) 3.3, Basophils (%) (Auto) 0.4, Neutrophils # (Auto) 3.78, Lymphocytes # (Auto) 2.24, Monocytes # (Auto) 0.59, Eosinophils # (Auto) 0.23, Basophils # (Auto) 0.03 Last Resulted 02/27/17 05:49 Past 24 Hours Test 02/28/17 06:36 Range/Units Creatine Kinase MB 1.1 0.5-3.6 ng/ml Creatine Kinase MB Ratio 1.0 0-3.0 Prothromb Time International Ratio 1.6 H 0.9-1.1 Prothrombin Time 17.2 H 9.0-12.0 SECONDS Total Creatine Kinase 107 39-308 U/L Troponin I 0.113 *H 0-0.045 ng/ml Troponin peaked at 0.432 ng/ml and had trended down to 0.113 ng/ml am of 02/28. Impression: 71 year old male 1. NSTEMI, symptoms suggestive of angina, mild troponin elevation 2. H/o Persistent AFib s/p external direct current cardioversion 01/15/2016 and has remained in SR since on EKG and outpatient device checks -on chronic coumadin, coumadin held this am for cardiac cath, INR 1.6 3 . HTN - controlled as outpt 4. Chronic coronary disease status post drug eluting stent implantation left circumflex 2003 -atypical chest discomfort evaluated with 09/2016 nuclear stress testing demonstrating lateral infarct with mild campos-infarct ischemia 5. History VF arrest 2003 in the setting of acute inferior lateral ST elevation [place]. 6. Dyslipidemia goal LDL less than 70 mg per dL - uncontrolled with statin intolerance (most recently intolerant to 10 mg atorvastatin) - non adherent with weekly dose of Crestor 7. JOEY inhibitor induced cough 8. Diabetes type 2 , Hgb A1C 8% this admission Plan: Proceed with cardiac catheterization to be performed today by Dr Yancey of interventional cardiology. ASA 324 this am prior to cath. Will need to determine best PCI strategy after anatomy delineated regarding BMS , DANIELA, or even perhaps surgery given need for coumadin, and potential triple therapy with ASA and clopidogrel, and coumadin if stenting takes place. Pt NPO and agreeable to procedure. Vale Hogan DO Laboratory Results Last 24 Hours Test 02/27/17 11:14 02/27/17 16:25 02/27/17 19:56 02/28/17 06:24 Bedside Glucose 189 mg/dl 118 mg/dl 145 mg/dl 150 mg/dl Test 02/28/17 06:36 Prothrombin Time 17.2 SECONDS Prothromb Time International Ratio 1.6 Total Creatine Kinase 107 U/L Creatine Kinase MB 1.1 ng/ml Creatine Kinase MB Ratio 1.0 Troponin I 0.113 ng/ml
[2017-02-28] MEDS ORDERED: ASPIRIN 81 MG CHEW PO SCH (09:17)
[2017-02-28] MEDS ORDERED: MIDAZOLAM HCL 1 MG/ML 2ML VIAL ONE (09:26)
[2017-02-28] MEDS ORDERED: NiCARDipine HCL INJ 2.5 MG/ML 10 ML AMP ONE (09:26)
[2017-02-28] MEDS ORDERED: HEPARIN SOD (PORCINE) 1000 UNIT/ML 10 ML VIAL ONE ×2 (09:26→11:39)
[2017-02-28] MEDS ORDERED: FENTANYL CITRATE INJ 50 MCG/1 ML 2 ML VIAL ONE (09:26)
[2017-02-28] MEDS ORDERED: NITROGLYCERIN/D5W 100MCG/ML 20ML SYR ONE (09:27)
--- NOTE | 2017-02-28 10:49 | Procedure Note ---
Pre-Mod Sedation Assessment General Date of Moderate Sedation: Feb 28, 2017. Vital Signs: Vital Signs Past 12 Hours Date Time Temp Pulse Resp B/P (MAP) Pulse Ox O2 Delivery O2 Flow Rate FiO2 02/28/17 08:00 Room Air 02/28/17 07:30 36.9 73 20 126/76 (93) 94 Room Air 02/28/17 05:33 36.6 73 16 143/79 95 Room Air 02/28/17 04:49 73 143/79 (100) 95 Room Air 02/28/17 04:47 64 16 142/79 (100) 96 Room Air 02/28/17 04:24 36.6 65 19 139/82 (101) 95 Room Air 02/28/17 04:06 Room Air 02/28/17 00:10 36.8 66 18 125/76 (92) 93 Room Air 02/28/17 00:02 Room Air Review Cardiovascular: regular rate, rhythm, no edema Abdomen: normal bowel sounds, non tender Lungs: chest non-tender, lungs clear Pre-Sedation Airway Assessment Oral Cavity: Dentures Able to Visualize Vocal Cords: No Short Thick Neck: No Hx of Sleep Apnea: No Smoking Status: Never Smoker Mallampati Classification: Class III ASA Classification: Class III Procedure Planning Contraindications-for Mod Sed: None Yes Notes The planned sedation has been discussed with the patient and consent obtained. I have identified the patient, determined the appropriateness of sedation and have assessed the patient immediately prior to the procedure. All medicine(s) and interventions are by my order.
[2017-02-28] MEDS ORDERED: CLOPIDOGREL BISULFATE 300 MG TAB PO ONE (12:21)
--- NOTE | 2017-02-28 12:36 | Procedure Note ---
Post-Mod Sedation Assessment General Date of Moderate Sedation Feb 28, 2017. Vital Signs: Vital Signs Past 12 Hours Date Time Temp Pulse Resp B/P (MAP) Pulse Ox O2 Delivery O2 Flow Rate FiO2 02/28/17 08:00 Room Air 02/28/17 07:30 36.9 73 20 126/76 (93) 94 Room Air 02/28/17 05:33 36.6 73 16 143/79 95 Room Air 02/28/17 04:49 73 143/79 (100) 95 Room Air 02/28/17 04:47 64 16 142/79 (100) 96 Room Air 02/28/17 04:24 36.6 65 19 139/82 (101) 95 Room Air 02/28/17 04:06 Room Air 02/28/17 00:10 36.8 66 18 125/76 (92) 93 Room Air 02/28/17 00:02 Room Air Review - Discharge Criteria Vital Signs Stable: Yes Alert/Oriented/Conversant: Yes Returned to Baseline Mental St: Yes Nausea Absent/Minimal: Yes Pain/Discomfort/Absent/Minimal: Yes Normal/Baseline Respirations: Yes Active Bleeding?: No Pt Received D/C Instructions: N/A Prescriptions Given: None Specific Proced. D/C Criteria Distal Pulses Present (Cardiac: Yes Groin site assessed-Card Cath: N/A Voided Prior To Discharge: N/A Discharged Patients Adult Escort/Transportation: Yes
--- NOTE | 2017-02-28 12:57 | Cardiac Catheterization ---
Procedure Note Procedure Date Feb 28, 2017. Pre-Procedure Diagnosis Non STEMI AUC Score 8 Post-Procedure Diagnosis Severe CAD, Successful PCI, Normal Intracardiac Pressures Procedure(s) Performed Coronary Angiography, Left Heart Cath, Drug Eluting Stent Hairspring Ii Inspector Bc Format Proofreader(s) Heidy Estimated Blood Loss 15 Medication(s) Clopidogrel, Fentanyl, Heparin, Nitroglycerin, Versed, Lidocaine 1% Summary of Findings Indication: Accelerating angina/NSTEMI Access: 6Fr Right Radial Artery Catheters: [place], JL3.5; JR4 guide; EBU 3.5 guide Findings: LM - Luminal irregularities LAD - Calcified proximally with mild disease, 30-40% stenosis at take-off of 2nd diagonal; distal luminal irregularities as wraps around apex. - 1st diagonal with 20% ostial disease - 2nd diagonal with 20-30% ostial disease Circumflex - Moderate caliber vessel, patent mid segment stent with 99% stenosis just distal to prior stent - OM2 with luminal irregularities. RCA - Dominant, large caliber vessel, 90% mid segment stenosis; luminal irregularities in the distal RCA, PDA and PLBs. LVEDP - 1 -- PCI -- Antithrombotic therapy: Heparin, Clopidogrel Procedure: -- RCA -- RCA cannulated with JR4 guide Prowater wire passed across lesion into distal vessel Mid RCA lesion predilated with 3.0 compliant balloon 4.5 x 18 Rafael DANIELA delivered to lesion with aid of guideliner Stent post-dilated with 5.0 noncompliant balloon IC vasodilators administered for spasm Post procedure ALTHEA 3 flow, stent well expanded with minimal residual stenosis and no apparent cardiac complications. -- Circumflex -- LM cannulated with EBU 3.5 guide Prowater wire passed across lesion into distal OM2 Mid Circumflex lesion predilated with 3.0 compliant balloon Lesion stented with 3.0 x 18 [place] DANIELA Stent post-dilated with 3.0 noncompliant balloon IC vasodilators administered for spasm Post procedure ALTHEA 3 flow, stent well expanded with minimal residual stenosis and no apparent cardiac complications. Arterial Closure: TR Band Summary: 1. Severe 2 vessel coronary artery disease - 99% mid circumflex - 90% mid RCA 2. Normal intracardiac filling pressure 3. Successful PCI of mid RCA with 4.5 x 18 [place] DANIELA (post-dilated to 5.0) 4. Successful PCI of mid Circumflex with 3.0 x 18 [place] DANIELA Recommendations: To PCU for continued monitoring Reloaded with clopidogrel in bobcat driver/labor Continue Triple therapy with ASA/Plavix/Coumadin for at least 1 month, then can go forward with coumadin/plavix ideally for 1 year. Continue statin, ASCVD risk factor modification per Dr. Hogan Consult cardiac Rehab Hemodynamics Rest Ao: 110/55/82 Final Ao: 141/71/100 LV: 108/1 Recommendations PCI without planned CABG Specimens None Radiation Exposure (mGy) 4765 Contrast (mls) 220 Visi Fluids (cc crystalloids) 153 NSS Drains None Anesthesia Moderate Procedural Complication(s) None Disposition PCU ACC Data Cardiac Status Clinical evaluation leading to the procedure CAD Presntation: Non STEMI Anginal Classification: CCS IV Heart Failure: No, NYHA Class: CCS I Cardiogenic Shock w/in 24Hrs: No Cardiac Arrest w/in 24Hrs: No Imaging studies past 6 months: Yes Stress studies past 6 months: No Closure Device Percutaneous Entry Location: Radial Closure Device: Radial Band Recommendations: PCI without planned CABG PCI Indication: PCI for high risk Non-STEMI Lesion Segment Name: Mid Circumflex Culprit Artery: Yes Stenosis Prior to Rx (%): 99 Chronic Total Occlusion: No IVUS: No FFR: No Pre-Procedure ALTHEA Flow: 3 Previously Treated Lesion: No Lesion Complexity: Non-High/Non-C Lesion Length (mm): 15 Thrombus Present: No Bifurcation Lesion: No Guidewire Across Lesion: Yes Guidewire: Stenosis Post-Procedure (%): 0 Post-Procedure ALTHEA Flow: 3 Device(s) Deployed: Yes Lesion #2 Segment Name: Mid RCA Culprit Artery: No Stenosis Prior to Rx (%): 90 Chronic Total Occlusion: No IVUS: No FFR: No Pre-Procedure ALTHEA Flow: 3 Previously Treated Lesion: No Lesion Complexity: Non-High/Non-C Lesion Length (mm): 15 Thrombus Present: No Bifurcation Lesion: No Guidewire Across Lesion: Yes Guidewire: Stenosis Post-Procedure (%): 0 Post-Procedure ALTHEA Flow: 3 Device(s) Deployed: Yes Intraprocedure Events Significant Dissection: No Perforation: No
[2017-02-28] MEDS ORDERED: SODIUM CHLORIDE 0.9% 1000ML 1,000 ML IV SCH (13:00)
[2017-02-28] MEDS: DIGOXIN 0.125 MG TAB PO SCH (16:39)
--- NOTE | 2017-02-28 22:42 | Progress Note ---
Internal Med Progress Note Date of Service: Feb 28, 2017. Provider Documentation: SUBJECTIVE: had cardiac cath today found to have severe CAD had PTCA feels much better , no complain of chest pain or SOB no orthopnea hoping to be discharged home tomorrow OBJECTIVE: Vital Signs-as noted below Exam: General-no sign of distress, comfortable , conversing Eyes-sclera non icteric , PERRLA/EOMI ENT-moist oral mucosa , normal oropharynx Neck-no thyromegaly , trachea midline Lungs-clear to auscultate , no wheeze or rales Heart-regular S1/S2, no JVD , no lower ext edema Abdomen-soft, non tender Extremities-no rash or deformity ; rt wrist cardiac cath site intact , no bleeding noted Neuro-AAO x3, no focal neurological deficit Lab data as noted below. ASSESSMENT & PLAN: SEVERE CAD : : presented with unstable angina JEFFRIES , chest heaviness has been having JEFFRIES , heaviness on chest with activity and ambulation for past 1 week had persisted substernal chest heaviness with SOB , diaphoresis , dizzy spell prior to admission symptom improved with Nitro Paste , Aspirin in ED -no ischemic change in EKG mild elevation of troponin pt has known CAD with recent Nc stress test noted to have campos-infract ischemia /ECHO noted to have hypokinesis noted in inferior , post , lateral wall -medical management was recommended as pt did not had angina symptom that point appreciate input from Cardiology given significant cardiac risk factor and ongoing anginal symptom cardiac cath done today found to have 1. Severe 2 vessel coronary artery disease - 99% mid circumflex - 90% mid RCA 2. Normal intracardiac filling pressure 3. Successful PCI of mid RCA with 4.5 x 18 Rafael DANIELA (post-dilated to 5.0) 4. Successful PCI of mid Circumflex with 3.0 x 18 [place] DANIELA cont to monitor pt in PCU will need uninterrupted dual antiplatelet tx with Aspirin and Plavix for 1 year CHRONIC AFIB ; cont on digoxin , beta veda Coumadin will be resumed tomorrow HX OF TACHYBRADY SYNDROME : S/P Pacemaker placement TYPE 2 DM : insulin sliding scale DVT PROPHYLAXIS Coumadin FULL CODE DISPOSITION expected to return home when medically stable Vital Signs: Date Time Temp Pulse Resp B/P (MAP) Pulse Ox O2 Delivery O2 Flow Rate FiO2 02/28/17 19:40 36.7 60 18 132/80 (97) 93 Room Air 02/28/17 18:40 61 21 132/73 (92) 93 Room Air 02/28/17 17:45 68 20 130/72 (91) 94 Room Air 02/28/17 16:45 63 20 148/78 (101) 96 Room Air 02/28/17 16:39 62 02/28/17 16:00 Room Air 02/28/17 15:45 60 22 133/77 (95) 94 Room Air 02/28/17 15:01 60 17 139/82 (101) 94 Room Air 02/28/17 14:35 60 19 136/68 (90) 94 Room Air 02/28/17 14:05 58 20 153/78 (103) 95 Room Air 02/28/17 13:35 60 19 138/73 (94) 96 Room Air 02/28/17 13:20 63 19 129/73 (91) 92 Room Air 02/28/17 13:05 60 17 132/75 (94) 94 Room Air 02/28/17 12:50 36.5 63 17 136/73 (94) 93 Room Air 02/28/17 12:50 Room Air 02/28/17 12:40 61 18 149/82 (104) 95 Room Air 02/28/17 12:35 61 18 156/83 (107) 95 Room Air 02/28/17 12:30 62 18 152/90 (110) 95 Room Air 02/28/17 12:25 61 18 160/87 (111) 95 Room Air 02/28/17 08:00 Room Air 02/28/17 07:30 36.9 73 20 126/76 (93) 94 Room Air 02/28/17 05:33 36.6 73 16 143/79 95 Room Air 02/28/17 04:49 73 143/79 (100) 95 Room Air 02/28/17 04:47 64 16 142/79 (100) 96 Room Air 02/28/17 04:24 36.6 65 19 139/82 (101) 95 Room Air 02/28/17 04:06 Room Air 02/28/17 00:10 36.8 66 18 125/76 (92) 93 Room Air 02/28/17 00:02 Room Air Lab Results: Results Past 24 Hours Test 02/28/17 06:24 02/28/17 06:36 02/28/17 11:35 02/28/17 11:58 Range/Units Bedside Glucose 150 70-99 mg/dl Prothrombin Time 17.2 9.0-12.0 SECONDS Prothromb Time International Ratio 1.6 0.9-1.1 Total Creatine Kinase 107 39-308 U/L Creatine Kinase MB 1.1 0.5-3.6 ng/ml Creatine Kinase MB Ratio 1.0 0-3.0 Troponin I 0.113 0-0.045 ng/ml Kaolin Activated Coagulation Time 213 219 94-140 SECONDS Test 02/28/17 12:54 02/28/17 16:11 02/28/17 20:06 Range/Units Bedside Glucose 128 146 157 70-99 mg/dl
[2017-03-01 04:24] VITALS: BP 122/75; PULSE 66; TEMP 36.6; O2SAT 96
[2017-03-01] MEDS: LEVOTHYROXINE 137 MCG TAB PO SCH (05:47)
[2017-03-01 06:41] LABS: BASO % 0.3 %; BASO ABS # 0.02 K/uL (0-0.2); COMPLETE YES; HEMATOCRIT 42.3 % (42-52); IG% 0.1 %; LYMPH % 30.1 %; LYMPH ABS # 2.28 K/uL (1.2-3.4); MEAN CELL VOLUME 96.1 fL (80-100); MEAN CORPUSCULAR HEMOGLOBIN 33.6 pg (25-34); MEAN PLATELET VOLUME 11.5 fL (7.4-10.4); MONO % 7.8 %; NEUT % 59.7 %; PLATELET COUNT 151 K/uL (130-400); WHITE BLOOD COUNT 7.57 K/uL (4.8-10.8)
[2017-03-01] MEDS: INSULIN ASPART 100 UNITS/ML 3 ML PEN SC SCH ×2 (07:00→12:17)
[2017-03-01 07:04] LABS: INR 1.2 (0.9-1.1); PROTHROMBIN TIME (PATIENT) 13.1 SECONDS (9.0-12.0)
[2017-03-01 07:15] LABS: BUN/CREATININE RATIO 12.3 (10-20); CALCIUM 8.8 mg/dl (8.5-10.1); CREATININE 0.99 mg/dl (0.60-1.40); POTASSIUM 3.8 mmol/L (3.5-5.1)
[2017-03-01 07:28] VITALS: BP 144/76; PULSE 63; TEMP 36.1; O2SAT 96
[2017-03-01] MEDS: ASPIRIN 81 MG ECTAB PO SCH (08:27)
[2017-03-01] MEDS: CLOPIDOGREL BISULFATE 75 MG TAB PO SCH (08:27)
[2017-03-01] MEDS: ROSUVASTATIN CALCIUM 5 MG TAB PO SCH (08:27)
[2017-03-01] MEDS: METOPROLOL SUCC 50MG EXT REL TAB PO SCH (08:27)
--- NOTE | 2017-03-01 09:39 | Cardiology Follow-Up ---
Subjective General Date of Service: Mar 01, 2017. Chief Complaint: follow up chest pain, NSTEMI Pt evaluation today including: conversation w/ patient, physical exam History of Present Illness The patient is a 71 year old male seen in follow up . Patient denies chest pain or shortness of breath. Telemetry reveals stable sinus rhythm with occasional ventricular paced beats. EKG performed this morning, 03/01/17 reveals sinus rhythm with atrial pacing , and pauma QRS complexes with no significant ST changes. Allergies Uncoded Allergies: PERFUMES/POWDERS (Allergy, Intermediate, WHEEZING/SNEEZING, 07/18/14) Social History Smoking Status: Never Smoker Hx Tobacco Use In Past Year?: No Hx Alcohol Use - Type And Amou: No Hx Substance Use - Type And Am: No Problem List Medical Problems: (1) NSTEMI (non-ST elevated myocardial infarction) Status: Acute Physical Exam Vital Signs Last Vital Signs Documentation Date Time Temp Pulse Resp B/P (MAP) Pulse Ox O2 Delivery O2 Flow Rate FiO2 03/01/17 08:00 Room Air 03/01/17 07:28 36.1 63 20 144/76 (98) 96 Physical Exam Constitutional: Level of Distress: NAD Head: normocephalic Neck: supple Lungs: Auscultation: no wheezing, no rales/crackles, no rhonchi Cardiovascular: Heart Auscultation: RRR, no murmurs, no rubs, no gallops Extremities: no edema, no varicosities, pertinent finding (right radial artery access site with mild ecchymosis, no hematoma, no evidence of peripheral embolic phenomenon) Neurologic: Gait & Station: pertinent finding (no focal deficits ) Assessment and Plan Assessment and Plan Summary of TTecho performed 02/27/17: * -- Conclusions -- * The left ventricle is normal in size. * Left ventricular systolic function is normal. * Ejection Fraction = 55-60%. * The right ventricular systolic function is normal. * The left atrial size is normal. * Right atrial size is normal. * No significant valvular pathology. Impression: 71 year old male 1. NSTEMI, symptoms suggestive of angina, mild troponin elevation Cardiac catheterization performed 02/28/[address] Yancey of interventional cardiology with findings of Severe 2 vessel coronary artery disease - 99% mid circumflex---> Successful PCI of mid Circumflex with 3.0 x 18 Rafael DANIELA - 90% mid RCA--->Successful PCI of mid RCA with 4.5 x 18 [place] DANIELA (post- dilated to 5.0) 2. H/o Persistent AFib s/p external direct current cardioversion 01/15/2016 and has remained in SR since on EKG and outpatient device checks -His most recent device check had been performed on 11/01/16 as an outpatient at that time he was atrial paced 98% of the time, ventricular paced < 0.1% of the time 3 . HTN - controlled 4. Chronic coronary disease status post drug eluting stent implantation left circumflex 2003 -atypical chest discomfort evaluated with 09/2016 nuclear stress testing demonstrating lateral infarct with mild campos-infarct ischemia 5. History VF arrest 2003 in the setting of acute inferior lateral ST elevation [place]. 6. Dyslipidemia goal LDL less than 70 mg per dL - uncontrolled with statin intolerance (most recently intolerant to 10 mg atorvastatin) - non adherent with weekly dose of Crestor 7. JOEY inhibitor induced cough 8. Diabetes type 2 , Hgb A1C 8% this admission Plan: Patient tolerated the procedure well, and is feeling great this morning. The patient previously been on Coumadin monotherapy for prophylaxis stroke given his history of atrial fibrillation. He had undergone direct current cardioversion over a year ago in January 2017 and remained in sinus rhythm as noted on past device checks. -I'm concerned about the risks of bleeding in this patient if he is discharged on aspirin, clopidogrel and Coumadin. At present, given his slow atrial fibrillation burden, I recommend we place his Coumadin on hold and discharge him on aspirin plus clopidogrel. Further antiplatelet and anticoagulation treatment plans will be reassessed as an outpatient after 3-6 months of dual antiplatelet therapy. The patient is tender scheduled for outpatient follow-up with Dr. Griffin of our practice in April,. He is overdue for his outpatient device check. I'm going to arrange for outpatient cardiology follow-up in one to 3 weeks. He'll need to be discharged from the [facility] anticoagulation clinic for the time being. Vale Hogan, DO Laboratory Results Last 24 Hours Test 02/28/17 11:35 02/28/17 11:58 02/28/17 12:54 02/28/17 16:11 Kaolin Activated Coagulation Time 213 SECONDS 219 SECONDS Bedside Glucose 128 mg/dl 146 mg/dl Test 02/28/17 20:06 03/01/17 06:02 03/01/17 06:46 Bedside Glucose 157 mg/dl 138 mg/dl White Blood Count 7.57 K/uL Red Blood Count 4.40 M/uL Hemoglobin 14.8 g/dL Hematocrit 42.3 % Mean Corpuscular Volume 96.1 fL Mean Corpuscular Hemoglobin 33.6 pg Mean Corpuscular Hemoglobin Concent 35.0 g/dl Platelet Count 151 K/uL Mean Platelet Volume 11.5 fL Neutrophils (%) (Auto) 59.7 % Lymphocytes (%) (Auto) 30.1 % Monocytes (%) (Auto) 7.8 % Eosinophils (%) (Auto) 2.0 % Basophils (%) (Auto) 0.3 % Neutrophils # (Auto) 4.52 K/uL Lymphocytes # (Auto) 2.28 K/uL Monocytes # (Auto) 0.59 K/uL Eosinophils # (Auto) 0.15 K/uL Basophils # (Auto) 0.02 K/uL RDW Standard Deviation 47.8 fL RDW Coefficient of Variation 13.5 % Immature Granulocyte % (Auto) 0.1 % Immature Granulocyte # (Auto) 0.01 K/uL Prothrombin Time 13.1 SECONDS Prothromb Time International Ratio 1.2 Sodium Level 137 mmol/L Potassium Level 3.8 mmol/L Chloride Level 104 mmol/L Carbon Dioxide Level 24 mmol/L Anion Gap 9.0 mmol/L Blood Urea Nitrogen 12 mg/dl Creatinine 0.99 mg/dl Est Creatinine Clear Calc Drug Dose 94.6 ml/min Estimated GFR () 88.4 Estimated GFR (Non- 76.3 BUN/Creatinine Ratio 12.3 Random Glucose 150 mg/dl Calcium Level 8.8 mg/dl
[2017-03-01] MEDS: SODIUM CHLORIDE 0.9% 1000ML 1,000 ML IV SCH (10:48)
--- NOTE | 2017-03-01 11:09 | Progress Note ---
Internal Med Progress Note Date of Service: Mar 01, 2017. Provider Documentation: SUBJECTIVE: Seen and examined at bedside Doing well Denies chest pain, SOB, dizziness Had PCI yesterday Discussed with OBJECTIVE: Vital Signs-as noted below Physical Exam: General Appearance:Obese, no apparent distress Head: normocephalic, Atraumatic Eyes: normal inspection, EOMI, PERRL Neck: supple, Trachea midline Respiratory/Chest: Normal breath sounds, CTA Cardiovascular: S1, S2, No murmur Abdomen/GI:Soft, Non tender, Bowel sounds present Extremities/Musculoskelatal:normal inspection, no edema Neurologic/Psych:AAOX3, grossly no focal neurological deficits Skin: normal color, warm Lab data as noted below. ASSESSMENT & PLAN: NSTEMI s/p PCI: DANIELA to mid circumflex and mid RCA Presented with JEFFRIES, chest heaviness, troponin elevation Continue Aspirin, Plavix, statin(Low dose as history of statin intolerance) continue BB Was on coumadin for afib prior to admission Will DC coumadin per cardiology recommendations due to risk for bleeding Antiplatelet and anticoagulation treatment to be reassessed as an outpatient after 3-6 months of dual antiplatelet therapy. Appreciate Cardiology Input H/O Afib S/P cardioversion in 2016 H/O Tachybrady Syndrome S/P Pacemaker placement Has been in Sinus on EKG and outpatient device checks since then Was on coumadin prior to admission Plan to DC coumadin for now as per cardiology recommendations due to risk for bleeding Continue digoxin, beta veda for rate control Antiplatelet and anticoagulation treatment to be reassessed as an outpatient after 3-6 months of dual antiplatelet therapy. Needs device check as outpatient DM II: A1c: 8.0 Resume home meds upon discharge Insulin therapy while hospitalized Dyslipidemia: H/O statin intolerance (most recently intolerant to 10 mg atorvastatin) continue low dose statin DVT Px: Was on Coumadin Code Status: Full Code DISPOSITION Follow up with your Physician on 03/08/17 at 1:05pm Follow up with Cardiology in 1-2 weeks as advised Vital Signs: Date Time Temp Pulse Resp B/P (MAP) Pulse Ox O2 Delivery O2 Flow Rate FiO2 03/01/17 08:00 Room Air 03/01/17 07:28 36.1 63 20 144/76 (98) 96 Room Air 03/01/17 04:24 36.6 66 19 122/75 (91) 96 Room Air 03/01/17 04:02 Room Air 03/01/17 00:00 Room Air 02/28/17 23:57 36.6 66 18 122/75 (91) 96 Room Air 02/28/17 20:00 Room Air 02/28/17 19:40 36.7 60 18 132/80 (97) 93 Room Air 02/28/17 18:40 61 21 132/73 (92) 93 Room Air 02/28/17 17:45 68 20 130/72 (91) 94 Room Air 02/28/17 16:45 63 20 148/78 (101) 96 Room Air 02/28/17 16:39 62 02/28/17 16:00 Room Air 02/28/17 15:45 60 22 133/77 (95) 94 Room Air 02/28/17 15:01 60 17 139/82 (101) 94 Room Air 02/28/17 14:35 60 19 136/68 (90) 94 Room Air 02/28/17 14:05 58 20 153/78 (103) 95 Room Air 02/28/17 13:35 60 19 138/73 (94) 96 Room Air 02/28/17 13:20 63 19 129/73 (91) 92 Room Air 02/28/17 13:05 60 17 132/75 (94) 94 Room Air 02/28/17 12:50 36.5 63 17 136/73 (94) 93 Room Air 02/28/17 12:50 Room Air 02/28/17 12:40 61 18 149/82 (104) 95 Room Air 02/28/17 12:35 61 18 156/83 (107) 95 Room Air 02/28/17 12:30 62 18 152/90 (110) 95 Room Air 02/28/17 12:25 61 18 160/87 (111) 95 Room Air Lab Results: Results Past 24 Hours Test 02/28/17 11:35 02/28/17 11:58 02/28/17 12:54 02/28/17 16:11 Range/Units Kaolin Activated Coagulation Time 213 219 94-140 SECONDS Bedside Glucose 128 146 70-99 mg/dl Test 02/28/17 20:06 03/01/17 06:02 03/01/17 06:46 Range/Units Bedside Glucose 157 138 70-99 mg/dl White Blood Count 7.57 4.8-10.8 K/uL Red Blood Count 4.40 4.7-6.1 M/uL Hemoglobin 14.8 14.0-18.0 g/dL Hematocrit 42.3 42-52 % Mean Corpuscular Volume 96.1 80-100 fL Mean Corpuscular Hemoglobin 33.6 25-34 pg Mean Corpuscular Hemoglobin Concent 35.0 32-36 g/dl Platelet Count 151 130-400 K/uL Mean Platelet Volume 11.5 7.4-10.4 fL Neutrophils (%) (Auto) 59.7 % Lymphocytes (%) (Auto) 30.1 % Monocytes (%) (Auto) 7.8 % Eosinophils (%) (Auto) 2.0 % Basophils (%) (Auto) 0.3 % Neutrophils # (Auto) 4.52 1.4-6.5 K/uL Lymphocytes # (Auto) 2.28 1.2-3.4 K/uL Monocytes # (Auto) 0.59 0.11-0.59 K/uL Eosinophils # (Auto) 0.15 0-0.5 K/uL Basophils # (Auto) 0.02 0-0.2 K/uL RDW Standard Deviation 47.8 36.4-46.3 fL RDW Coefficient of Variation 13.5 11.5-14.5 % Immature Granulocyte % (Auto) 0.1 % Immature Granulocyte # (Auto) 0.01 0.00-0.02 K/uL Prothrombin Time 13.1 9.0-12.0 SECONDS Prothromb Time International Ratio 1.2 0.9-1.1 Sodium Level 137 136-145 mmol/L Potassium Level 3.8 3.5-5.1 mmol/L Chloride Level 104 98-107 mmol/L Carbon Dioxide Level 24 21-32 mmol/L Anion Gap 9.0 3-11 mmol/L Blood Urea Nitrogen 12 7-18 mg/dl Creatinine 0.99 0.60-1.40 mg/dl Est Creatinine Clear Calc Drug Dose 94.6 ml/min Estimated GFR () 88.4 Estimated GFR (Non- 76.3 BUN/Creatinine Ratio 12.3 10-20 Random Glucose 150 70-99 mg/dl Calcium Level 8.8 8.5-10.1 mg/dl
[2017-03-01] MEDS ORDERED: ASPEC81 PO (11:12)
[2017-03-01] MEDS ORDERED: PLV75 PO (11:12)
[2017-03-01 11:15] VITALS: BP 101/69; PULSE 73; TEMP 36.8; O2SAT 96
--- NOTE | 2017-03-01 11:15 | Discharge Summary ---
Discharge Summary Date of Service Mar 01, 2017. Discharge Summary Admission Date: Feb 27, 2017 at 18:38 Discharge Date: Mar 01, 2017 Discharge Disposition: Home Principal Diagnosis: STEMI s/p PCI: DANIELA to mid circumflex and mid RCA Procedures: CXR: No acute process within the chest. Bilateral calcified pleural plaques are again noted. Cardiac Cath: 1. Severe 2 vessel coronary artery disease - 99% mid circumflex - 90% mid RCA 2. Normal intracardiac filling pressure 3. Successful PCI of mid RCA with 4.5 x 18 Rafael DANIELA (post-dilated to 5.0) 4. 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 Continue statin, ASCVD risk factor modification per Dr. Hogan Consult cardiac Rehab ECHO: * The left ventricle is normal in size. * Left ventricular systolic function is normal. * Ejection Fraction = 55-60%. * The right ventricular systolic function is normal. * The left atrial size is normal. * Right atrial size is normal. * No significant valvular pathology. Consultations: Cardiology Pending Studies/Follow-Up: Follow up with your Physician on 03/08/17 at 1:05pm Follow up with Cardiology in 1-2 weeks as advised New Medications: Aspirin Plavix Discontinued Medications: Coumadin Home Care: * Take your medications exactly as directed. Don't skip doses. * Remember that recovery after a heart attack takes time. Plan to rest for at lease 4-8 weeks while you recover. Then return to normal activity when your doctor says it's okay. * Ask your doctor about joining a heart rehabilitation program. * Tell your doctor if you are feeling depressed. Feelings of sadness are common after a heart attack, but it is important that you speak to someone if you are feeling overwhelmed by these feelings. * If you are having chest pain, call 911 for an ambulance. Do NOT drive yourself to the hospital. * Ask your family members to learn CPR. * Learn to take your own blood pressure and pulse. Keep a record of your results. Ask your doctor when you should seek emergency medical attention. He or she will tell you which blood pressure reading is dangerous. Lifestyle Changes: * Maintain a healthy weight. Get help to lose any extra pounds. * Cut back on salt. * Limit canned, dried, packaged, and fast foods. * Don't add salt to your food. * Season foods with herbs instead of salt when you cook. * Break the smoking habit. Enroll in a stop-smoking program to improve your chances of success. * Limit fatty foods. * Ask your doctor about having your lipid levels checked regularly. * Build up your activity according to your doctor's recommendation. * Ask your doctor when it's okay to resume sexual activity. * Tell your doctor about any erectile dysfunction (ED) medication you are taking. Some ED medications are not safe if you take certain heart medications. * Try to manage stress. Follow Up: It is important for you to keep your follow up appointments with your medical provider. Medication Reconciliation New Medications: Aspirin (Aspirin EC Low Dose) 81 Mg Ectab 81 MG PO QAM for 30 Days, #30 EA 2 Refills Clopidogrel Bisulfate (Clopidogrel) 75 Mg Tab 75 MG PO QAM for 30 Days, #30 TAB 2 Refills Continued Medications: Digoxin (Digoxin) 0.125 Mg Tab 0.125 MG PO DAILY Levothyroxine Sodium (Levothyroxine Sodium) 137 Mcg Tab 137 MCG PO DAILY Metformin HCl (Metformin HCl) 850 Mg Tab 850 MG PO BID Metoprolol Succinate (Metoprolol Succinate ER) 100 Mg Tabcr 100 MG PO QPM Metoprolol Succinate (Metoprolol Succinate ER) 100 Mg Tabcr 150 MG PO QAM Nitroglycerin (Nitrostat) 0.4 Mg Sub 0.4 MG UT UD PRN for Chest Pain, BTL Rosuvastatin Calcium (Rosuvastatin Calcium) 5 Mg Tab 5 MG PO WK TAKE THIS MEDICATION EVERY TUESDAY Discontinued Medications: Warfarin Sodium (Warfarin Sodium) 5 Mg Tab 10 MG PO DAILY TAKE 10 MG EVERY DAY OR OTHERWISE DIRECTED TO TAKE BY ANTICOAGULATION CLINIC/MD Admission Information HPI (per Admitting provider): This is a 71 year old M with PMH of PCI/stent LCx 2003 in 2003, history of pacemaker, nuclear stress test in September 2016 with results of previous infarct of the posterior lateral and inferior basilar myocardium with mild periinfarct ischemia and findings are most consistent with the distribution of the left circumflex artery, anticoagulated on coumadin, with patient presenting to the ED for chest pain which began yesterday night or pressure across his chest from 6PM to 8 PM with resolution and then pain returning after waking up in the morning and when ambulatory he was was feeling pain across from bilateral shoulders and across chest lasting for 1 hour. During these episodes patient denies shortness of breath, lightheadedness, or headache. No abdominal pain. 1 episode of diarrhea but otherwise usual normally formed stool No changes in urination. Patient took nitro to relieve pain at home. received aspirin on ambulance ride. Patient found to have elevated troponin 0.107. EKG atrial paced 77 bpm with left axis deviation and prolonged AV conduction. Patient seen by cardiology Dr. Meyer in the ED. Patient's INR therapeutic level 2.2 Physical Exam (per Admitting): General Appearance: WD/WN, no apparent distress Head: normocephalic, atraumatic Eyes: normal inspection, EOMI, sclerae normal ENT: normal ENT inspection, hearing grossly normal, TMs normal, pharynx normal Neck: supple, no JVD, no carotid bruits, trachea midline Respiratory/Chest: chest non-tender, lungs clear, normal breath sounds, no respiratory distress, no accessory muscle use Cardiovascular: regular rate, rhythm, no JVD, normal peripheral pulses Abdomen/GI: normal bowel sounds, non tender, soft, no organomegaly Back: normal inspection, no CVA tenderness, no muscle spasm, normal range of motion Extremities/Musculoskelatal: normal inspection, no calf tenderness, normal capillary refill, no pedal edema, normal range of motion Neurologic/Psych: no motor/sensory deficits, alert, normal mood/affect, oriented x 3 Skin: normal color, warm/dry, no rash Hospital Course NSTEMI s/p PCI: DANIELA to mid circumflex and mid RCA Presented with JEFFRIES, chest heaviness, troponin elevation Continue Aspirin, Plavix, statin(Low dose as history of statin intolerance) continue BB Was on coumadin for afib prior to admission Will DC coumadin per cardiology recommendations due to risk for bleeding Antiplatelet and anticoagulation treatment to be reassessed as an outpatient after 3-6 months of dual antiplatelet therapy. Appreciate Cardiology Input H/O Afib S/P cardioversion in 2016 H/O Tachybrady Syndrome S/P Pacemaker placement Has been in Sinus on EKG and outpatient device checks since then Was on coumadin prior to admission Plan to DC coumadin for now as per cardiology recommendations due to risk for bleeding Continue digoxin, beta veda for rate control Antiplatelet and anticoagulation treatment to be reassessed as an outpatient after 3-6 months of dual antiplatelet therapy. Needs device check as outpatient DM II: A1c: 8.0 Resume home meds upon discharge Insulin therapy while hospitalized Dyslipidemia: H/O statin intolerance (most recently intolerant to 10 mg atorvastatin) continue low dose statin DVT Px: Was on Coumadin Code Status: Full Code DISPOSITION Follow up with your Physician on 03/08/17 at 1:05pm Follow up with Cardiology in 1-2 weeks as advised Total time spent on discharge = 35 minutes This includes examination of the patient, discharge planning, medication reconciliation, and communication with other providers. Discharge Instructions Discharge Instructions Date of Service Mar 01, 2017. Admission Reason for Admission: Diabetes Mellitus, Left Sided Chest Pain Discharge Discharge Diagnosis / Problem: NSTEMI s/p PCI: DANIELA to mid circumflex and mid RCA Discharge Goals Goal(s): Decrease discomfort, Improve function Activity Recommendations Activity Limitations: per Instructions/Follow-up section Lifting Limitations: gradually increase as tolerated Exercise/Sports Limitations: gradually increase as tolerated Driving or Machine Use: No driving until cleared by your Primary Care phyisican . Instructions / Follow-Up Instructions / Follow-Up Follow up with your Physician on 03/08/17 at 1:05pm Follow up with Cardiology in 1-2 weeks as advised New Medications: Aspirin Plavix Discontinued Medications: Coumadin Home Care: * Take your medications exactly as directed. Don't skip doses. * Remember that recovery after a heart attack takes time. Plan to rest for at lease 4-8 weeks while you recover. Then return to normal activity when your doctor says it's okay. * Ask your doctor about joining a heart rehabilitation program. * Tell your doctor if you are feeling depressed. Feelings of sadness are common after a heart attack, but it is important that you speak to someone if you are feeling overwhelmed by these feelings. * If you are having chest pain, call 911 for an ambulance. Do NOT drive yourself to the hospital. * Ask your family members to learn CPR. * Learn to take your own blood pressure and pulse. Keep a record of your results. Ask your doctor when you should seek emergency medical attention. He or she will tell you which blood pressure reading is dangerous. Lifestyle Changes: * Maintain a healthy weight. Get help to lose any extra pounds. * Cut back on salt. * Limit canned, dried, packaged, and fast foods. * Don't add salt to your food. * Season foods with herbs instead of salt when you cook. * Break the smoking habit. Enroll in a stop-smoking program to improve your chances of success. * Limit fatty foods. * Ask your doctor about having your lipid levels checked regularly. * Build up your activity according to your doctor's recommendation. * Ask your doctor when it's okay to resume sexual activity. * Tell your doctor about any erectile dysfunction (ED) medication you are taking. Some ED medications are not safe if you take certain heart medications. * Try to manage stress. Follow Up: It is important for you to keep your follow up appointments with your medical provider. Current Hospital Diet Patient's current hospital diet: AHA Diet (Heart Healthy), Diabetes Type 2 Diet Discharge Diet Recommended Diet: AHA Diet (Heart Healthy), Diabetes Type 2 Diet Pending Studies Studies pending at discharge: no Laboratory Results Hemoglobin A1c Test 02/26/17 09:59 Range/Units Estimated Average Glucose 183 mg/dl Hemoglobin A1c 8.0 H 4.5-5.6 % Lipid Panel Test 02/26/17 09:59 Range/Units Triglycerides Level 128 0-150 mg/dl Cholesterol Level 140 0-200 mg/dl HDL Cholesterol 41 mg/dl Cholesterol/HDL Ratio 3.4 LDL Cholesterol, Calculated 73 mg/dl Medical Emergencies . Who to Call and When: Medical Emergencies: If at any time you feel your situation is an emergency, please call 911 immediately. Call 911 immediately or go to your nearest Emergency Room if you experience any of the following: Warning Signs and Symptoms of a Heart Attack * Chest pain that is not relieved by medication * Shortness of breath . Non-Emergent Contact Non-Emergency issues call your: Primary Care Provider, Surveillance Supervisor Call Non-Emergent contact if: you have a fever, your pain is not controlled, your pain is worsening, your pain is unusual for you, your pain is concerning you, you have any medication questions Seek immediate medical attention if your symptoms reoccur or worsen . . "Provider Documentation" section prepared by Ivan Naqvi. . AMI Core Measures Reason no ASA as I/P: Treatment provided - N/A Reason no ASA at D/C: Treatment provided - N/A Reason no statin as I/P: Treatment provided - N/A Reason no statin at D/C: Treatment provided - N/A VTE Core Measure Inpt VTE Proph given/why not?: Warfarin (Coumadin)
[2017-03-01 11:17] VITALS: BP 144/76; PULSE 63; TEMP 36.1; O2SAT 96
[2017-03-01 11:49] VITALS: Ht 182.9 cm; Wt 128.0 kg
== END 2017-03-01 12:00 | disposition home or self-care (01) | DRG 247 ==
LOC: EDBD 09:34 → C.EDB 09:35 → C.2T 11:57 → ENRESERV 12:09 → OBSVTOIN 02-27 18:38
PROVIDERS: ADMIT Hospitalist; ATTEND Internal Medicine
PROC: 4A023N7 Measurement of Cardiac Sampling and Pressure, Left Heart, Percutaneous Approach (ICD-10-PCS; principal; 2017-02-28 09:08)
PROC: 027135Z Dilation of Coronary Artery, Two Arteries with Two Drug-eluting Intraluminal Devices, Percutaneous Approach (ICD-10-PCS; principal; 2017-02-28 09:08)
PROC: B2111ZZ Fluoroscopy of Multiple Coronary Arteries using Low Osmolar Contrast (ICD-10-PCS; principal; 2017-02-28 09:08)
DX: I21.4 Non-ST elevation (NSTEMI) myocardial infarction (principal); I25.110 Atherosclerotic heart disease of native coronary artery with unstable angina pectoris; I25.2 Old myocardial infarction; Z95.5 Presence of coronary angioplasty implant and graft; I48.2 Chronic atrial fibrillation; E03.9 Hypothyroidism, unspecified; Z95.0 Presence of cardiac pacemaker; I10 Essential (primary) hypertension; E78.5 Hyperlipidemia, unspecified; M19.90 Unspecified osteoarthritis, unspecified site; E11.9 Type 2 diabetes mellitus without complications; Z79.84 Long term (current) use of oral hypoglycemic drugs; Z79.01 Long term (current) use of anticoagulants

== ENCOUNTER 2019-03-05 01:21 | Observation (INO) ==
[2019-03-05 02:19] LABS: Basophils # (auto) 0.02 K/uL (0-0.2); Basophils % (auto) 0.3 %; Eosinophils # (auto) 0.16 K/uL (0-0.5); Eosinophils % (auto) 2.2 %; Hematocrit (blood only) 38.8 % (42-52); Hemoglobin 14.2 g/dL (14.0-18.0); Immature Granulocytes # (auto) 0.01 K/uL (0.00-0.02); Immature Granulocytes % (auto) 0.1 %; Lymphocytes # (auto) 2.33 K/uL (1.2-3.4); Lymphocytes % (auto) 32.4 %; Mean Corpuscular Hemoglobin 35.1 pg (25-34); Mean Corpuscular Hgb Conc 36.6 g/dL (32-36); Mean Platelet Volume 11.3 fL (7.4-10.4); Monocytes % (auto) 8.3 %; Neutrophils # (auto) 4.08 K/uL (1.4-6.5); Neutrophils % (auto) 56.7 %; Platelet Count 148 K/uL (130-400); RDW Coefficient of Variation 13.5 % (11.5-14.5); RDW Standard Deviation 48.1 fL (36.4-46.3); Red Blood Count 4.04 M/uL (4.7-6.1)
[2019-03-05 02:27] LABS: INR 2.3 (0.9-1.1); Prothrombin Time 22.5 Seconds (9.0-12.0)
[2019-03-05 02:37] LABS: Alanine Aminotransferase 25 U/L (12-78); Albumin Level 3.6 gm/dl (3.4-5.0); Aspartate Aminotransferase 18 U/L (15-37); BUN Creatinine Ratio 10.2 (10-20); Blood Urea Nitrogen 10 mg/dl (7-18); Calcium 8.8 mg/dl (8.5-10.1); Carbon Dioxide 24 mmol/L (21-32); Chloride 107 mmol/L (98-107); Creatinine Clr Calc Pharmacy 98.1 ml/min; Est GFR (African American) 88.3; Est GFR (Non-African American) 76.2; Glucose 200 mg/dl (70-99); Lipase 86 U/L (73-393); Potassium 3.7 mmol/L (3.5-5.1); Sodium 138 mmol/L (136-145)
[2019-03-05 02:42] LABS: Albumin Globulin Ratio 0.9 (0.9-2); Alkaline Phosphatase 43 U/L (45-117); Bilirubin,Total 0.5 mg/dl (0.2-1); Globulin 3.8 gm/dl (2.5-4.0); Total Protein 7.4 gm/dl (6.4-8.2); Troponin I < 0.015 ng/ml (0-0.045)
[2019-03-05] MEDS ORDERED: ONDANSETRON INJ 2 MG/ML 2 ML VIAL IV STA (02:49)
--- NOTE | 2019-03-05 03:59 | History & Physical Report ---
Date of Service March 05, 2019 Assessment & Plan (1) Substernal chest pain: Relieved by nitro Rule out ACS hx CAD status post stent Anxiety contributory secondary to GI upset from recent increase in glipizide dosing SSS sp PPM on Coumadin, rate controlled, INR therapeutic hypertension, stable hyperlipidemia, weekly statin dose given statin intolerance hypothyroidism, euthyroid as of today's TSH DM2 on oral medications. Suboptimal control as of recent outpatient hemoglobin A1c of 8.12 January 2019 OBS PCU Continue antiplatelet, beta-veda, weekly statin Rx Trend troponin Cardiology consult RE chest pain Anxiolytic as needed basal insulin, ISS BG goal 140-180, carb count coverage DC glipizide on discharge (Patient adamant about not taking medication again ever.) DVT prophylaxis. Coumadin INR goal between 2 and 3 Full code History of Present Illness Chief Complaint: Chest pain Primary Care Provider: Darren Santos MD History obtained from patient, family, and records. Medical history significant for CAD status post stent, SSS sp PPM on Coumadin, hypertension, hyperlipidemia, statin intolerance as per records, hypothyroidism, DM2 on oral medications, skin cancer as per records Recent confinement July 2017 for rapid A. fib. Recent increase in home glipizide dose this week. GI upset symptoms noted later going to the chest with some shortness of breath. No unusual cough symptoms. Some relief with nitroglycerin at home. Patient brought by EMS to the ER. 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 Allergies Allergy/AdvReac Type Severity Reaction Status Date / Time pollen extracts Allergy Mild sensitivity Verified 03/05/19 01:54 glipizide AdvReac Mild gi upset Verified 03/05/19 03:58 Home Medications Home Medications Medication Instructions Recorded Confirmed Type aspirin [Aspirin Low Dose] 81 mg PO DAILY 03/05/19 03/05/19 History levothyroxine 137 mcg PO DAILY 03/05/19 03/05/19 History metformin 850 mg PO BID 03/05/19 03/05/19 History metoprolol succinate 100 mg PO DAILY 03/05/19 03/05/19 History nitroglycerin 0.4 mg SUBLINGUAL DIRECTED PRN 03/05/19 03/05/19 History rosuvastatin 5 mg PO WK 03/05/19 03/05/19 History sotalol 160 mg PO BID #60 tab 03/05/19 Rx warfarin 10 mg PO QPM 03/05/19 03/05/19 History Past Med/Surg History Medical History (Updated 03/05/19 @ 10:41 by Malik Hogan DO) Atrial fibrillation Diabetes mellitus (Chronic 10/17/12) Fall (Resolved) Myocardial infarct Surgical History (Updated 03/05/19 @ 02:21 by Dario Patel) History of heart artery stent Family History (Updated 03/05/19 @ 02:21 by Dario Patel) Other No significant family history Social History Preferred Language: Albanian Beliefs That Will Affect Care: None Current Living Situation: Spouse Current Living Situation Comment: lives with Other Information That Helps Us Care for You: No Feels Safe at Home: Yes Safety Concerns: Feels Safe At This Time Smoking Status: Former smoker Hx Alcohol Use: No Hx Substance Use: No Review of Systems Review of Systems: As per HPI, all 10 systems reviewed, all other ROS negative Physical Exam Physical Exam: GENERAL: Comfortable, slightly anxious, obese, no respiratory distress SKIN: Normal color, warm HEENT: Wray palpebral conjunctivae, no ptosis, dry buccal mucosa NECK : Supple, short neck, no tenderness CHEST : CTA, no tenderness HEART : Irregular , no obvious murmurs ABDOMEN: Some distention, nontender EXTREMITIES : No LE swelling/tenderness, no other conspicuous deformities noted NEUROLOGIC : Coherent, no facial asymmetry, no other gross focality Results & Data Vital Signs (Past 12 Hours) Vital Signs Temp Pulse Resp BP Pulse Ox 03/05/19 03:30 75 18 131/87 97 03/05/19 03:00 75 16 132/75 97 03/05/19 02:30 94 H 26 H 123/87 94 03/05/19 01:31 121 H 21 140/92 95 03/05/19 01:20 36.9 C 109 H 18 134/90 96 Laboratory Results Laboratory Results WBC 7.20 K/uL (4.8-10.8) 03/05/19 02:09 RBC 4.04 M/uL (4.7-6.1) L 03/05/19 02:09 Hgb 14.2 g/dL (14.0-18.0) 03/05/19 02:09 Hct 38.8 % (42-52) L 03/05/19 02:09 MCV 96.0 fL (80-100) 03/05/19 02:09 MCH 35.1 pg (25-34) H 03/05/19 02:09 MCHC 36.6 g/dL (32-36) H 03/05/19 02:09 RDW Std Deviation 48.1 fL (36.4-46.3) H 03/05/19 02:09 RDW Coeff of Carson 13.5 % (11.5-14.5) 03/05/19 02:09 Plt Count 148 K/uL (130-400) 03/05/19 02:09 MPV 11.3 fL (7.4-10.4) H 03/05/19 02:09 Immature Gran % (Auto) 0.1 % 03/05/19 02:09 Neut % (Auto) 56.7 % 03/05/19 02:09 Lymph % (Auto) 32.4 % 03/05/19 02:09 [place] % (Auto) 8.3 % 03/05/19 02:09 Eos % (Auto) 2.2 % 03/05/19 02:09 Baso % (Auto) 0.3 % 03/05/19 02:09 Immature Gran # (Auto) 0.01 K/uL (0.00-0.02) 03/05/19 02:09 Neut # (Auto) 4.08 K/uL (1.4-6.5) 03/05/19 02:09 Lymph # (Auto) 2.33 K/uL (1.2-3.4) 03/05/19 02:09 [place] # (Auto) 0.60 K/uL (0.11-0.59) H 03/05/19 02:09 Eos # (Auto) 0.16 K/uL (0-0.5) 03/05/19 02:09 Baso # (Auto) 0.02 K/uL (0-0.2) 03/05/19 02:09 PT 22.5 Seconds (9.0-12.0) H 03/05/19 02:09 INR 2.3 (0.9-1.1) H 03/05/19 02:09 Sodium 138 mmol/L (136-145) 03/05/19 02:09 Potassium 3.7 mmol/L (3.5-5.1) 03/05/19 02:09 Chloride 107 mmol/L (98-107) 03/05/19 02:09 Carbon Dioxide 24 mmol/L (21-32) 03/05/19 02:09 Anion Gap 7.0 (3-11) 03/05/19 02:09 BUN 10 mg/dl (7-18) 03/05/19 02:09 Creatinine 0.98 mg/dl (0.6-1.4) 03/05/19 02:09 Est Cr Clr Drug Dosing 98.1 ml/min 03/05/19 02:09 Est GFR ( Amer) 88.3 03/05/19 02:09 Est GFR (Non-Af Amer) 76.2 03/05/19 02:09 BUN/Creatinine Ratio 10.2 (10-20) 03/05/19 02:09 Glucose 200 mg/dl (70-99) H 03/05/19 02:09 Calcium 8.8 mg/dl (8.5-10.1) 03/05/19 02:09 Total Bilirubin 0.5 mg/dl (0.2-1) 03/05/19 02:09 AST 18 U/L (15-37) 03/05/19 02:09 ALT 25 U/L (12-78) 03/05/19 02:09 Alkaline Phosphatase 43 U/L (45-117) L 03/05/19 02:09 Troponin I < 0.015 ng/ml (0-0.045) 03/05/19 02:09 Total Protein 7.4 gm/dl (6.4-8.2) 03/05/19 02:09 Albumin 3.6 gm/dl (3.4-5.0) 03/05/19 02:09 Globulin 3.8 gm/dl (2.5-4.0) 03/05/19 02:09 Albumin/Globulin Ratio 0.9 (0.9-2) 03/05/19 02:09 Lipase 86 U/L (73-393) 03/05/19 02:09 TSH 3.860 uIu/ml (0.300-4.500) 03/05/19 02:09 Diagnostic Findings Chest/abdominal x-ray as per my interpretation: No congestion, no obstruction EKG as per my interpretation : Rate 100, A. fib, LAD, LAFB, incomplete RBBB, T wave flattening lateral leads, ST depression inferior leads, PVCs
--- NOTE | 2019-03-05 04:18 | Emergency Department Note ---
Entered by Dario Patel acting as a scribe for History of Present Illness General Chief complaint: Chest Pain Stated complaint: chest tightness Time Seen by Provider: 03/05/19 01:23 Source: patient History of Present Illness Onset (ago): day(s) (today) Location: chest Pain Consistency: + constant Quality: + other (chest pain) Associated symptoms: + other (Positive for SOB, abdominal fullness/hardness, and an irregular heart beat. Negative for abdominal pain.) Treatments prior to arrival: other (nitroglycerin and aspirin) The patient is a 73 year old male who presents to the emergency department with complaints of constant chest pain beginning today. The patient states that he has a history of diabetes and was on glipizide. He notes that he stopped taking the glipizide a week ago because he thought that it was making him SOB. He believes that it was also making his abdomen hard and distended. He reports that he has been having an irregular heart beat and chest pain for the last few days. He does have a history of paroxysmal A. fib. The patient states that he had chest pain again today which caused him to become SOB. He notes that his chest pain improved after taking nitroglycerin and aspirin. He also complains of abdominal fullness. He reports that he did not eat a lot today. He denies any abdominal pain. The patient states that he has a history of Afib and a previous heart attack, and he notes that he had two cardiac stents placed a year ago. He reports that he takes Coumadin. Home Medications Home Medications Medication Instructions Recorded Confirmed Type aspirin [Aspirin Low Dose] 81 mg PO DAILY 03/05/19 03/05/19 History levothyroxine 137 mcg PO DAILY 03/05/19 03/05/19 History metformin 850 mg PO BID 03/05/19 03/05/19 History metoprolol succinate 100 mg PO DAILY 03/05/19 03/05/19 History nitroglycerin 0.4 mg SUBLINGUAL DIRECTED PRN 03/05/19 03/05/19 History rosuvastatin 5 mg PO WK 03/05/19 03/05/19 History sotalol 120 mg PO BID 03/05/19 03/05/19 History warfarin 10 mg PO QPM 03/05/19 03/05/19 History Allergies Allergy/AdvReac Type Severity Reaction Status Date / Time pollen extracts Allergy Mild sensitivity Verified 03/05/19 01:54 glipizide AdvReac Mild gi upset Verified 03/05/19 03:58 PERFUMES/POWDERS Allergy Intermediate WHEEZING/SN Uncoded 03/05/19 01:54 EEZING Past Med/Surg History Medical History (Updated 03/05/19 @ 03:46 by Dario Patel) Atrial fibrillation Diabetes mellitus (Chronic 10/17/12) Fall (Resolved) Myocardial infarct Surgical History (Updated 03/05/19 @ 02:21 by Dario Patel) History of heart artery stent Family History (Updated 03/05/19 @ 02:21 by Dario Patel) Other No significant family history Social History Preferred Language: Upper Sorbian Feels Safe at Home: Yes Smoking Status: Never smoker Review of Systems See HPI for pertinent positives & negatives. and A total of 10 systems reviewed and were otherwise negative Physical Exam Vital Signs Vital Signs - 24 hr 03/05/19 01:20 03/05/19 01:31 03/05/19 02:30 Temperature 36.9 C Temperature Source Oral Pulse Rate 109 H 121 H 94 H Pulse Rate from SpO2 Sensor 102 H 94 H Pulse Rhythm Irregular Pulse Strength Normal Respiratory Rate 18 21 26 H Respiratory Effort / Characteristics Non-Labored Respiratory Depth Normal Respiratory Pattern Regular Blood Pressure 134/90 140/92 123/87 Blood Pressure Mean 104 102 99 Blood Pressure Position Lying Pulse Oximetry 96 95 94 Oxygen Delivery Method Room Air Sepsis Recent Fever Within 48 Hours No Sepsis Action Taken by Nursing No Action Required 03/05/19 03:00 03/05/19 03:30 Temperature Temperature Source Pulse Rate 75 75 Pulse Rate from SpO2 Sensor 70 69 Pulse Rhythm Pulse Strength Respiratory Rate 16 18 Respiratory Effort / Characteristics Respiratory Depth Respiratory Pattern Blood Pressure 132/75 131/87 Blood Pressure Mean 88 99 Blood Pressure Position Pulse Oximetry 97 97 Oxygen Delivery Method Sepsis Recent Fever Within 48 Hours Sepsis Action Taken by Nursing HEENT: Head - normocephalic and atraumatic Pupils are equal, round, and reactive to light. Extraocular eye muscles are intact, and sclera are anicteric. Nose - moist nasal mucosa without discharge. Mouth - moist buccal mucosa. Oropharynx is nonerythematous and there is no tonsillar exudate or edema noted. Neck: Supple; no JVD, nuchal rigidity, cervical lymphadenopathy, or auscultated bruits. Heart: Irregularly irregular with controlled rate. There is a normal S1 and S2 with no murmurs, clicks, or gallops appreciated. Lungs: Clear to auscultation bilaterally with no wheezes, rales, or rhonchi. Abdomen: Soft, completely nontender, with good bowel sounds. There are no palpable pulsatile masses or hepatosplenomegaly. There is no guarding, rigidity, or rebound noted. Abdomen distended. Extremities: No evidence of cyanosis and clubbing. There are easily palpable peripheral pulses. Trace pedal edema. Skin: warm and dry with good turgor and no rashes. Course Course 0133: The patient was evaluated in room B7. A complete history and physical examination were performed. Nursing notes and previous electronic medical records were reviewed. IV lock was established and labs were drawn as above. The patient was observed on the telemetry monitor and pulse oximeter. He remains in a atrial fibrillation with a controlled rate. 0249: The patient became nauseous when lying down for his x-ray. 0302: Ondansetron HCl 4mg IV 0313: Upon reevaluation, the patient is stable. I discussed the findings and the treatment plan with the patient. He expresses agreement and understanding. I spoke with Dr. Enriquez of the [facility]. The patient will be evaluated for further management. Consultations Consultation #1: I reviewed the patient's case with Dr. Enriquez - [facility]. He will evaluate the patient for further management. Time: 03:13 Administered Medications Discontinued Medications Ondansetron HCl (Zofran) 4 mg IV NOW STA Stop: 03/05/19 02:50 Last Admin: 03/05/19 03:02 Dose: 4 mg Documented by: [id number] Medical Decision Making Differential Diagnosis Differential diagnoses include: medication side effects, anxiety, cardiac ischemia, GERD, and gastritis. Medical Records Attestation: I reviewed the patient's medical records. Home Medications Current Medication List: was personally reviewed by me Laboratory Data Attestation: I reviewed the patient's lab results. Result diagrams: 03/05/19 02:09 03/05/19 02:09 Lab Results 03/05/19 03/05/19 03/05/19 Range/Units 02:09 02:09 02:09 WBC 7.20 (4.8-10.8) K/uL RBC 4.04 L (4.7-6.1) M/uL Hgb 14.2 (14.0-18.0) g/dL Hct 38.8 L (42-52) % MCV 96.0 (80-100) fL MCH 35.1 H (25-34) pg MCHC 36.6 H (32-36) g/dL RDW Std Deviation 48.1 H (36.4-46.3) fL RDW Coeff of [place] 13.5 (11.5-14.5) % Plt Count 148 (130-400) K/uL MPV 11.3 H (7.4-10.4) fL Immature Gran % (Auto) 0.1 % Neut % (Auto) 56.7 % Lymph % (Auto) 32.4 % [place] % (Auto) 8.3 % Eos % (Auto) 2.2 % Baso % (Auto) 0.3 % Immature Gran # (Auto) 0.01 (0.00-0.02) K/uL Neut # (Auto) 4.08 (1.4-6.5) K/uL Lymph # (Auto) 2.33 (1.2-3.4) K/uL [place] # (Auto) 0.60 H (0.11-0.59) K/uL Eos # (Auto) 0.16 (0-0.5) K/uL Baso # (Auto) 0.02 (0-0.2) K/uL PT 22.5 H (9.0-12.0) Seconds INR 2.3 H (0.9-1.1) Sodium 138 (136-145) mmol/L Potassium 3.7 (3.5-5.1) mmol/L Chloride 107 (98-107) mmol/L Carbon Dioxide 24 (21-32) mmol/L Anion Gap 7.0 (3-11) BUN 10 (7-18) mg/dl Creatinine 0.98 (0.6-1.4) mg/dl Est Cr Clr Drug Dosing 98.1 ml/min Est GFR ( Amer) 88.3 Est GFR (Non-Af Amer) 76.2 BUN/Creatinine Ratio 10.2 (10-20) Glucose 200 H (70-99) mg/dl Calcium 8.8 (8.5-10.1) mg/dl Total Bilirubin 0.5 (0.2-1) mg/dl AST 18 (15-37) U/L ALT 25 (12-78) U/L Alkaline Phosphatase 43 L (45-117) U/L Troponin I < 0.015 (0-0.045) ng/ml Total Protein 7.4 (6.4-8.2) gm/dl Albumin 3.6 (3.4-5.0) gm/dl Globulin 3.8 (2.5-4.0) gm/dl Albumin/Globulin Ratio 0.9 (0.9-2) Lipase 86 (73-393) U/L TSH 3.860 (0.300-4.500) uIu/ml Imaging Data Attestation: I personally reviewed and interpreted this imaging study as follows: My Impression: OBSTRUCTION SERIES: Moderate colonic fecal retention. Normal bowel gas pattern. No signs of bowel obstruction. ECG Data Attestation: I personally reviewed and interpreted this ECG as follows: Indication: + chest pain Rate (beats per minute): 100 Rhythm: + atrial fibrillation ECG ST segments: no ST depression and no ST elevation ECG Findings: + PVCs Blood Pressure Blood Pressure Findings: Elevated blood pressure Blood Pressure Disposition: further management by hospitalist JOSEPHINE Neely The patient is a 73 year old male who presents to the emergency department with complaints of constant chest pain beginning today. The patient states that he has been having intermittent episodes of substernal chest discomfort secondary to abdominal fullness over the past couple of days. He became more concerned tonight when the chest discomfort/tightness became persistent. He took nitroglycerin around midnight which did relieve the discomfort temporarily. Upon EMS arrival, they administered nitroglycerin and aspirin and the pain resolved. Patient does have a significant cardiac history to include paroxysmal A. fib and previous myocardial infarction with PCI and stent placement. His heart score is 5. He is chest pain-free here in the emergency department with no acute EKG changes and a negative troponin. However, I remain concerned about the patient's episodes of substernal chest discomfort. We did spend some time talking about the patient's decreased appetite and decreased food intake today. I question whether or not his symptoms could be secondary to GERD but he denies it feeling like that at all. As for the abdominal fullness and concern for side effects secondary to glipizide use, I am not convinced that this medication has caused the patient's symptoms. Impression & Plan Substernal chest pain, Hyperglycemia Discharge Plan Visit Data Chief Complaint: Chest Pain Stated Complaint: chest tightness ED Provider: Lily Mendoza Discharge Problem: Substernal chest pain, Hyperglycemia Patient Disposition: Being Evaluated by Hospitalist Forms Stand Alone Forms: Call Back Authorization, My [facility] Prescriptions Prescriptions: No Action rosuvastatin 5 mg Tablet 5 mg PO WK RF: 0 aspirin [Aspirin Low Dose] 81 mg Tablet,Delayed Release (Dr/Ec) 81 mg PO DAILY RF: 0 sotalol 120 mg Tablet 120 mg PO BID RF: 0 metoprolol succinate 100 mg Tablet Extended Release 24 Hr 100 mg PO DAILY RF: 0 levothyroxine 137 mcg Tablet 137 mcg PO DAILY RF: 0 warfarin 10 mg Tablet 10 mg PO QPM RF: 0 metformin 850 mg Tablet 850 mg PO BID RF: 0 nitroglycerin 0.4 mg Tablet, Sublingual 0.4 mg sublingual DIRECTED PRN (Reason: Chest Pain) RF: 0 Referrals Referrals: Darren Santos MD [Primary Care Provider] - Risk - HEART Scoring HEART Score for Major Cardiac Events History: Moderately Suspicious EKG: Normal Age: > 64 Years of Age Risk Factors: >2 Risk Factors Initial Troponin: Normal Limit Total Points: 5 Risk Level: Moderate Risk for Major Adverse Cardiac Event HEART Score Interpretation: Score interpretation (as per derivation study): HEART Adverse Cardiac Score Event Risk Management 0-3 0.9-1.7% In the HEART Score study, these patients were discharged. 4-6 12-16.6% In the HEART Score study, these patients were admitted to the hospital. 7-10 50-65% In the HEART Score study, these patients were candidates for early invasive measurements. Original Source: 1. River AJ, Lola BE, Kenny MARTINEZ. Chest pain in the emergency room: value of the HEART score. Net Heart J. 2008; 16(6):191-6. The scribe's documentation has been prepared under my direction and personally reviewed by me in its entirety. I confirm that the note above accurately reflects all work, treatment, procedures, and medical decision making performed by me.
[2019-03-05 04:29] LABS: Magnesium 1.6 mg/dl (1.8-2.4)
[2019-03-05] MEDS ORDERED: GLUCOSE 10 TABS/TUBE PO PRN (04:53)
[2019-03-05] MEDS ORDERED: PROMETHAZINE HCL 12.5 MG in SODIUM CHLORIDE 0.9% 50 ML IV PRN (04:53)
[2019-03-05] MEDS ORDERED: DEXTROSE 50% 50 ML SYRINGE IV PRN (04:53)
[2019-03-05] MEDS ORDERED: GLUCAGON FOR INJ 1 MG VIAL SQ PRN (04:53)
[2019-03-05] MEDS ORDERED: ACETAMINOPHEN 325 MG TAB PO PRN (04:53)
[2019-03-05] MEDS ORDERED: GLUCOSE 40% GEL 15 GM TUBE PO PRN (04:53)
[2019-03-05] MEDS ORDERED: NITROGLYCERIN SL 0.4 MG/TAB TAB SL PRN (04:53)
[2019-03-05] MEDS ORDERED: CARBOHYDRATES FOR HYPOGLYCEMIA PO PRN (04:53)
[2019-03-05] MEDS ORDERED: MoRPHine SULFATE 4 MG/ML 1 ML CARP\\VIAL IV PRN (04:53)
[2019-03-05] MEDS ORDERED: TRAMADOL HCL 50 MG TABLET PO PRN (04:53)
[2019-03-05] MEDS ORDERED: LORazepam 0.25 MG/0.5 ML VIAL IV PRN (04:53)
[2019-03-05] MEDS ORDERED: INSULIN GLARGINE SOLOSTAR 100 UNITS/ML 3 ML PEN SQ ONE (05:15)
[2019-03-05] MEDS ORDERED: NSS + 20MEQ KCL 20 MEQ/1,000 ML BAG IV SCH (05:15)
[2019-03-05] MEDS ORDERED: MAGNESIUM SULFATE / D5W 1 GM/100 ML BAG IV ONE (05:27)
[2019-03-05] MEDS ORDERED: METOPROLOL SUCC 50MG EXT REL TAB PO SCH ×2 (05:30→09:00)
[2019-03-05] MEDS: INSULIN ASPART 100 UNITS/ML 3 ML PEN SC SCH ×2 (05:37→13:40)
[2019-03-05] MEDS ORDERED: LEVOTHYROXINE SODIUM 137 MCG TABLET PO SCH ×2 (06:30→09:00)
--- NOTE | 2019-03-05 07:04 | XRay Report ---
PA CHEST RADIOGRAPH AND UPRIGHT AND SUPINE AP RADIOGRAPHS OF THE ABDOMEN CLINICAL HISTORY: Abdominal distention. Chest pain. COMPARISON STUDY: Chest radiograph July 22, 2017. CT of the abdomen and pelvis July 28, 2014. FINDINGS: Multiple calcified pleural plaques are again noted. There is no pneumothorax or pleural ef fusion. There is no evidence for pulmonary edema. Moderate cardiomegaly is noted. Dual lead left subc lavian pacemaker is in place. There is no free air. The bowel gas pattern is normal. IMPRESSION: 1. No free air or evidence of bowel obstruction. 2. No acute cardiopulmonary findings. Electronically signed by: Cas Schumacher M.D. 03/05/2019 7:03 AM
[2019-03-05 07:32] LABS: Chol HDL Ratio 3; Cholesterol 151 mg/dl (0-200); HDL Cholesterol 48 mg/dl; LDL Cholesterol Calculated 84 mg/dl; Triglycerides 93 mg/dl (0-150); VLDL Cholesterol 19 mg/dl
[2019-03-05] MEDS ORDERED: ASPIRIN 81 MG ECTAB PO SCH (09:00)
[2019-03-05] MEDS ORDERED: SOTALOL HCL 80 MG TAB PO SCH ×2 (09:00→21:00)
[2019-03-05] MEDS ORDERED: SOTALOL HCL 80 MG TAB PO ONE (10:45)
--- NOTE | 2019-03-05 10:45 | Cardiology Consultation ---
Date of Consultation March 05, 2019 Assessment & Plan (1) Substernal chest pain: Patient without ischemic changes on EKG, serial troponin on level measurements are within normal limits thus far. Currently asymptomatic. (2) Paroxysmal atrial fibrillation: It is difficult to determine if his symptoms may be related to atrial fibrillation. Given his history of chronic coronary heart disease, I think restoring sinus rhythm and keeping his ventricular rate less than 100 bpm is critical for him. I am not certain that proceeding directly to direct-current cardioversion would be prudent, without medication change to help ensure future sinus rhythm. His kidney function has been stable with serial laboratory studies revealing calculated GFR greater than 60. He has tolerated sotalol 120 mg twice daily for quite some time without side effect, would therefore recommend cautiously increase the dose to 160 mg twice daily. Continue metoprolol succinate 100 mg daily. Fortunately his pacemaker provide heart rate support. His blood pressure has been stable, actually a little bit on the higher side, and therefore I think he will tolerate the dose adjustment well. Electrolytes been stable. I have requested a pacemaker interrogation to reassess his atrial fibrillation burden, and the onset of when this particular episode started. Resting echocardiogram has been requested. Patient is eager for discharge. If he tolerates medication change, and observation, may consider discharge later today, or perhaps tomorrow pending results of echocardiogram. Plan for combined low intensity exercise/pharmacologic sestamibi nuclear stress test (2-day protocol) within approximately 2 weeks as an outpatient. I have already placed a telephone encounter in his outpatient chart to facilitate scheduling this test. History of Present Illness Attending Physician: Pennie Gonzalez, DO History of Present Illness Kian Parham is a 73 year old male seen in cardiology consultation per the request of Dr. Toledo for the evaluation of chest discomfort and atrial fibrillation. The patient's primary salvage engineering technician is Dr. Caleb Griffin of our practice. Patient describes onset of transient chest tightness yesterday that occurred while he was at [employer]. He also felt associated distention his abdomen. He takes his pulse regularly, and he believes he had been in atrial fibrillation for at least a day prior to feeling the symptoms. At the time of his most recent device interrogation performed as an outpatient in December,, sinus rhythm was present, with paroxysmal atrial fibrillation, atrial fibrillation burden of 11% at that time, increased compared to 6% on the prior interrogation from 3 months earlier. Telemetry reveals evidence of atrial fibrillation with mildly elevated ventricular rates often in the range of 120-140 bpm while sleeping last night. At the bedside when he was assessed by the undersigned personally, and repeat EKG had been performed at 927 revealing atrial fibrillation at 93 bpm. At the time of my assessment, the patient was feeling comfortable, and was eager for discharge. He states that he has a long-standing history of a fear of suffocation. He started to have some anxiety symptoms yesterday, including transient throat tightness. Patient attributes his recent feelings of generalized unwellness due to intolerance of a recent dose increase in glipizide from 5 mg to 10 mg. Past Cardiac History: 1. History of chronic coronary heart disease, with ventricular fibrillation arrest in 2003 in the setting of an acute inferior lateral ST segment elevation myocardial infarction with percutaneous coronary intervention the circumflex territory at that time 2.Non-ST segment elevation myocardial infarction, prompting cardiac catheterization performed 02/28/[address] Yancey at [facility] with findings of severe two-vessel coronary heart disease including 99% mid circumflex stenosis for which he underwent successful PCI with placement of a drug-eluting stent, and a 90% mid right coronary artery stenosis with successful PCI, placement of drug-eluting stent to the mid RCA -Most recent transthoracic echocardiogram, was an inpatient study at [facility] performed 07/23/2017 with findings of mild concentric left ventricular hypertrophy, normal LV wall motion, LVEF 55-60%. Mild left atrial dilatation, mild aortic valve sclerosis without stenosis, mild mitral regurgitation, mild tricuspid regurgitation 3. Paroxysmal atrial fibrillation, tachycardia-bradycardia syndrome for which patient underwent past cardioversion treatments, and placement of a dual-chamber [employer] permanent pacemaker 4. Type 2 diabetes mellitus 5.JOEY inhibitor induced cough 6. Difficulty tolerating statin therapy, has been on a low-dose rosuvastatin 5 mg daily, did not tolerate trial of ezetimibe, had declined treatment with PCSK9 inhibitor Allergies Allergy/AdvReac Type Severity Reaction Status Date / Time pollen extracts Allergy Mild sensitivity Verified 03/05/19 01:54 glipizide AdvReac Mild gi upset Verified 03/05/19 03:58 Home Medications Home Medications Medication Instructions Recorded Confirmed Type aspirin [Aspirin Low Dose] 81 mg PO DAILY 03/05/19 03/05/19 History levothyroxine 137 mcg PO DAILY 03/05/19 03/05/19 History metformin 850 mg PO BID 03/05/19 03/05/19 History metoprolol succinate 100 mg PO DAILY 03/05/19 03/05/19 History nitroglycerin 0.4 mg SUBLINGUAL DIRECTED PRN 03/05/19 03/05/19 History rosuvastatin 5 mg PO WK 03/05/19 03/05/19 History sotalol 120 mg PO BID 03/05/19 03/05/19 History warfarin 10 mg PO QPM 03/05/19 03/05/19 History Patient History Medical History (Updated 03/05/19 @ 10:41 by Malik Hogan DO) Atrial fibrillation Diabetes mellitus (Chronic 10/17/12) Fall (Resolved) Myocardial infarct Surgical History (Updated 03/05/19 @ 02:21 by Dario Patel) History of heart artery stent Family History (Updated 03/05/19 @ 02:21 by Dario Patel) Other No significant family history Social History Preferred Language: Kazakh Beliefs That Will Affect Care: None Current Living Situation: Spouse Current Living Situation Comment: lives with Other Information That Helps Us Care for You: No Feels Safe at Home: Yes Safety Concerns: Feels Safe At This Time Smoking Status: Former smoker Hx Alcohol Use: No Hx Substance Use: No Review of Systems Review of Systems: All systems reviewed & are unremarkable except as noted in HPI & below Physical Exam Physical Exam: Temp Pulse Resp BP Pulse Ox 36.7 C 75 20 148/80 H 96 03/05/19 06:48 03/05/19 06:48 03/05/19 06:48 03/05/19 06:48 03/05/19 06:48 Constitutional: WD/WN, vitals as above Respiratory: normal respiratory effort, lungs clear to auscultation Cardiovascular: Rate/Rhythm: + tachycardic and + irregularly irregular Heart Sounds: no murmur Vessels: no JVD Extremities: no edema Gastrointestinal (Abdomen): normal bowel sounds, soft, nontender, no hepatosplenomegaly Neurologic: PERRL, EOMI, accommodation nl, no face palsy, no dysarthria Results & Data Vital Signs (Past 12 Hours) Vital Signs Temp Pulse Pulse Resp BP BP BP 03/05/19 06:48 36.7 C 75 20 148/80 H 03/05/19 04:45 36.8 C 80 20 156/97 H 03/05/19 04:33 78 14 143/85 H 03/05/19 04:00 99 H 20 136/100 03/05/19 03:30 75 18 131/87 03/05/19 03:00 75 16 132/75 03/05/19 02:30 94 H 26 H 123/87 03/05/19 01:31 121 H 21 140/92 03/05/19 01:20 36.9 C 109 H 18 134/90 Pulse Ox 03/05/19 06:48 96 03/05/19 04:45 93 03/05/19 04:33 97 03/05/19 04:00 95 03/05/19 03:30 97 03/05/19 03:00 97 03/05/19 02:30 94 03/05/19 01:31 95 03/05/19 01:20 96 Laboratory Results Cardiac Enzymes 03/05/19 03/05/19 Range/Units 02:09 06:23 AST 18 (15-37) U/L Troponin I < 0.015 < 0.015 (0-0.045) ng/ml Coagulation 03/05/19 Range/Units 02:09 PT 22.5 H (9.0-12.0) Seconds Lipids 03/05/19 Range/Units 06:23 Triglycerides 93 (0-150) mg/dl Cholesterol 151 (0-200) mg/dl HDL Cholesterol 48 mg/dl Cholesterol/HDL Ratio 3 CBC 03/05/19 Range/Units 02:09 WBC 7.20 (4.8-10.8) K/uL RBC 4.04 L (4.7-6.1) M/uL Hgb 14.2 (14.0-18.0) g/dL Hct 38.8 L (42-52) % Plt Count 148 (130-400) K/uL Neut # (Auto) 4.08 (1.4-6.5) K/uL Lymph # (Auto) 2.33 (1.2-3.4) K/uL [place] # (Auto) 0.60 H (0.11-0.59) K/uL Eos # (Auto) 0.16 (0-0.5) K/uL Baso # (Auto) 0.02 (0-0.2) K/uL Comprehensive Metabolic Panel 03/05/19 Range/Units 02:09 Sodium 138 (136-145) mmol/L Potassium 3.7 (3.5-5.1) mmol/L Chloride 107 (98-107) mmol/L Carbon Dioxide 24 (21-32) mmol/L BUN 10 (7-18) mg/dl Creatinine 0.98 (0.6-1.4) mg/dl Glucose 200 H (70-99) mg/dl Calcium 8.8 (8.5-10.1) mg/dl AST 18 (15-37) U/L ALT 25 (12-78) U/L Alkaline Phosphatase 43 L (45-117) U/L Total Protein 7.4 (6.4-8.2) gm/dl Albumin 3.6 (3.4-5.0) gm/dl Intake and Output 03/04/19 03/05/19 03/05/19 22:59 06:59 14:59 Intake Total 100 / 100 Output Total 175 / 175 Balance -75 / -75 Intake: IV 100 / 100 MAGNESIUM SULFATE / D5W 1 gm In 100 / 100 100 ml @ 100 mls/hr IV ONE ONE Rx#:[id number] Output: Urine 175 / 175 Other: Other Intake Source NPO Weight 136.8 kg
--- NOTE | 2019-03-05 12:08 | Discharge Summary ---
Date of Service March 05, 2019 Admission HPI Per Admitting Provider History obtained from patient, family, and records. Medical history significant for CAD status post stent, SSS sp PPM on Coumadin, hypertension, hyperlipidemia, statin intolerance as per records, hypothyroidism, DM2 on oral medications. Recent confinement July 2017 for rapid A. fib. Recent increase in home glipizide dose this week. GI upset symptoms noted later going to the chest with some shortness of breath. No unusual cough symptoms. Some relief with nitroglycerin at home. Patient brought by EMS to the ER. Admission Exam Per Admitting Provider GENERAL: Comfortable, slightly anxious, obese, no respiratory distress SKIN: Normal color, warm HEENT: [place] palpebral conjunctivae, no ptosis, dry buccal mucosa NECK : Supple, short neck, no tenderness CHEST : CTA, no tenderness HEART : Irregular , no obvious murmurs ABDOMEN: Some distention, nontender EXTREMITIES : No LE swelling/tenderness, no other conspicuous deformities noted NEUROLOGIC : Coherent, no facial asymmetry, no other gross focality Principal Diagnosis Substernal chest pain Paroxysmal atrial fibrillation Discharge Data Allergies Allergy/AdvReac Type Severity Reaction Status Date / Time pollen extracts Allergy Mild sensitivity Verified 03/05/19 01:54 glipizide AdvReac Mild gi upset Verified 03/05/19 03:58 Consultations 03/05/19 03:16 ED Decision to Admit Stat 03/05/19 04:53 Consult Cardiology Routine Hospital Course (1) Substernal chest pain: Mr. Stearns is a 73-year-old man with a known history of atrial fibrillation on sotalol. He also has a history of diabetes and is taking glipizide. He has been successfully taking glipizide 5 mg daily and was recently increased to 10 mg daily. Soon after starting the 10 mg dosage, he reports starting to have symptoms consistent with a feeling of bloating and GI discomfort. Prior to arrival he had severe chest pain that was associated with this bloating in addition to feelings of converting into atrial fibrillation. He also has self-reported feelings of dread over suffocation, and at the time, felt very short of breath. This precipitated a type of panic attack per his description which exacerbated his symptoms. He was admitted to the Hospitalist service and placed on telemetry which revealed evidence of atrial fibrillation with mildly elevated ventricular rates often in the range of 120-140bpm while sleeping overnight. Cardiology was consulted and was the group who sees him regularly as an outpatient. Serial troponin measurements were performed and negative. EKG revealed no evidence of ischemic changes. An echocardiogram revealed a normal ejection fraction of 55 to 60%. Outpatient follow-up for a nuclear stress test was recommended. His pacemaker was interrogated and detection heart rate thresholds for AT/AF were lowered to improve detection/treatments. Given the long-standing tolerance of sotalol 120 mg p.o. twice daily Cardiology recommended an increase in the dose to 160 mg p.o. twice daily. Additional telemetry monitoring was not thought necessary because of prior long-term stability on the 120mg BID dose. At time of discharge he was hemodynamically stable and afebrile and tolerating p.o. He was mentating and ambulating at baseline and was asymptomatic. Physical exam revealed an irregular heart rhythm with a normal rate, S1/S2 heard with no evidence of murmur, no evidence of JVD or peripheral edema. The patient was ambulatory. Lungs were clear to auscultation bilaterally. He was moving all extremities equal and skin was warm and dry. There was no gross neurologic deficits present. We discussed glipizide in general and he refuses to take it at this point even at the lower dose. He will continue on metformin as monotherapy for his diabetes and will follow up closely with his PCP next week to discuss future directions and treatment for his diabetes. Close cardiology follow-up was also recommended. He was discharged in stable condition. Total Time Total Time Spent Total Time Spent (In Minutes): 60 Total Time Includes: Examination of the Patient, Discharge Planning, Medication Reconciliation, Communication With Other Providers and Other (arrange followup.) Discharge Plan Discharge Items Patient Disposition: Home - Self-Care Reason For Visit: CP Discharge Diagnosis: Substernal chest pain Paroxysmal atrial fibrillation Condition on Discharge: Good Activity: Resume your previous activity Non-emergency contact: Primary Care Provider Call non-emergency contact if: you have any medication questions, your symptoms worsen, your pain is not controlled, your pain is worsening, your pain is unusual for you, your pain is concerning for you and you have a fever Follow-up/Referrals: Darren Santos MD [Primary Care Provider] - Diet: Carb Consistent or DM2 Addtl Attending Provider Instructions: Please take all medications as instructed on discharge list below. Your sotalol was increased to 180mg twice daily. Please follow-up with Cardiology as instructed. Also, it will be important to follow-up with your primary care physician to discuss the next step in the plan to treat your diabetes. For now continue with the metformin dose below and avoid any further glipizide. The following appointments were made for you for follow-up: PRIMARY CARE 03/14/2019 11:20 AM [facility] 05/04/2019 2:30 PM Caleb Griffin DO Cardiology, [facility] It was a pleasure taking care of you! Please call if you have any questions or problems. You can reach a [facility] hospitalist on duty at [facility] 24 hours a day by calling [phone]. Take care of yourself. Pennie Gonzalez DO [facility] Hospitalist Pending Studies at Discharge: No Stand-Alone Forms: Call Back Authorization, My [facility], Smoking Cessation Medications and DC Order Prescriptions: New sotalol 80 mg Tablet 160 mg PO BID Qty: 60 RF: 1 Continued rosuvastatin 5 mg Tablet 5 mg PO WK RF: 0 aspirin [Aspirin Low Dose] 81 mg Tablet,Delayed Release (Dr/Ec) 81 mg PO DAILY RF: 0 metoprolol succinate 100 mg Tablet Extended Release 24 Hr 100 mg PO DAILY RF: 0 levothyroxine 137 mcg Tablet 137 mcg PO DAILY RF: 0 warfarin 10 mg Tablet 10 mg PO QPM RF: 0 metformin 850 mg Tablet 850 mg PO BID RF: 0 nitroglycerin 0.4 mg Tablet, Sublingual 0.4 mg sublingual DIRECTED PRN (Reason: Chest Pain) RF: 0 Discontinued sotalol 120 mg Tablet 120 mg PO BID RF: 0 glipizide 10 mg tablet extended release 24hr 10 mg PO DAILY RF: 0 Discharge Orders: Discharge Order (Routine); Ordered 03/05/19 Ordered By: Pennie Gonzalez Admission Data Admit Date/Time: 03/05/19 04:03 Attending Provider: Pennie Gonzalez Admit Provider: Hernandez Enriquez Primary Care Provider: Darren Santos Other Providers: Hernandez Enriquez ; Caleb Griffin Other Interventions: Discharge Summary Assessment (RN) Last Done: 03/05/19 13:19 DC Date/Time DO NOT enter until pt leaves facility: 03/05/19 15:00
[2019-03-05] MEDS ORDERED: Nursing to Pharmacy Communication ONE (12:41)
[2019-03-05] MEDS ORDERED: INSULIN ASPART 100 UNITS/ML 3 ML PEN SC SCH (16:30)
[2019-03-06] MEDS ORDERED: INSULIN GLARGINE SOLOSTAR 100 UNITS/ML 3 ML PEN SQ SCH (09:00)
[2019-03-07] MEDS ORDERED: ROSUVASTATIN CALCIUM 5 MG TAB PO SCH (09:00)
== END 2019-03-05 15:00 | disposition home or self-care (01) ==
LOC: ED 01:21 → 2S 01:21 → SUATTDRO 04:03 → 2S 04:40

== ENCOUNTER 2021-12-13 12:55 | Inpatient (IN) ==
[2021-12-13 13:27] LABS: Basophils # (auto) 0.02 K/uL (0-0.2); Basophils % (auto) 0.2 %; Eosinophils # (auto) 0.06 K/uL (0-0.50); Eosinophils % (auto) 0.6 %; Hematocrit (blood only) 39.7 % (40.1-51.0); Hemoglobin 13.9 g/dl (14.0-18.0); Immature Granulocytes # (auto) 0.03 K/uL (0.00-0.02); Immature Granulocytes % (auto) 0.3 %; Lymphocytes # (auto) 2.08 K/uL (1.2-3.4); Lymphocytes % (auto) 19.7 %; Mean Corpuscular Volume 94.3 fL (80.0-100.0); Mean Platelet Volume 11.4 fL (9.4-12.4); Monocytes # (auto) 1.07 K/uL (0.24-0.82); Monocytes % (auto) 10.1 %; Neutrophils # (auto) 7.29 K/uL (1.4-6.5); Neutrophils % (auto) 69.1 %; Platelet Count 168 K/uL (130-400); RDW Standard Deviation 45.1 fL (36.4-46.3); Red Blood Count 4.21 M/uL (4.63-6.08); White Blood Count 10.55 K/ul (4.8-10.8)
[2021-12-13 13:57] LABS: Troponin I High Sensitivity 8.5 pg/ml (0-20)
[2021-12-13] MEDS: SODIUM CHLORIDE 0.9% 1000ML 1,000 ML IV SCH ×2 (14:02→20:13)
--- NOTE | 2021-12-13 14:12 | Emergency Department Note ---
History of Present Illness General Chief complaint: Abdominal Pain Stated complaint: BACK PAIN, ABD PAIN, POOR APPETITE Time Seen by Provider: 12/13/21 13:15 Source: patient and family Mode of arrival: ambulatory Limitations: no limitations History of Present Illness Provider complaint: Abdominal pain, back pain Onset (ago): week(s) 1 Maximum Pain Intensity: 3 This is a 76-year-old male presents emergency department due to concern for 1 week of abdominal pain. Patient states he said abdominal pain that has been waxing and waning but has occurred every day over the course of the last week. He states at times it does feel as though it radiates into his back. He states at times his abdomen does feel "very hard". Patient states he thought initially he was constipated so he took some [id number]-myzxzsd medications and now his stools are loose. He denies black or bloody stools. Denies accompanying fevers, chills, nausea, vomiting. He states his blood sugar has been elevated. He denies any recent change in medications. He does admit to frequently eating grapes, ice cream, and candy. No recent sick contacts. Pt seen during a time of high acuity and national emergency pandemic while wearing PPE. Home Medications Medication Instructions Recorded Confirmed Type aspirin 81 mg tablet,delayed 81 mg PO DAILY 03/05/19 12/13/21 History release (Vinny Low Dose Aspirin) metoprolol succinate 100 mg 150 mg PO BID 03/05/19 12/13/21 History tablet,extended release 24 hr nitroglycerin 0.4 mg sublingual 0.4 mg sublingual DIRECTED PRN 03/05/19 12/13/21 History tablet Chest Pain rosuvastatin 5 mg tablet 5 mg PO WK 03/05/19 12/13/21 History furosemide 20 mg tablet (Lasix) 20 mg PO DAILY PRN Fluid Retention 12/13/21 12/13/21 History levothyroxine 150 mcg tablet 150 mcg PO DAILYBB 12/13/21 12/13/21 History metformin 1,000 mg tablet 1,000 mg PO BID 12/13/21 12/13/21 History potassium chloride 10 mEq 10 meq PO DAILY PRN TAKES WHEN 12/13/21 12/13/21 His tory tablet,extended release(part/cryst) USES LASIX. warfarin 5 mg tablet See Rx Instructions .Route .COMPLEX 12/13/21 12/13/21 History Allergies Allergy/AdvReac Type Severity Reaction Status Date / Time pollen extracts Allergy Intermediate SNEEZING, Verified 12/13/21 16:03 CONGESTION glipizide AdvReac Intermediate gi upset Verified 12/13/21 16:03 Past Med/Surg History Medical History (Updated 12/14/21 @ 09:12 by Alana Nobles DO) Atrial fibrillation CAD (coronary artery disease) Diabetes mellitus, type II History of MT (myocardial infarction) HTN (hypertension) Hypothyroidism ASHLEY (obstructive sleep apnea) intolerant to cpap Tachy-mirtha syndrome Surgical History History of heart artery stent Inguinal hernia s/p repair S/P placement of cardiac pacemaker S/P tonsillectomy and adenoidectomy Family History Other Diabetes Heart disease Social History Smoking Status: Never smoker Hx Alcohol Use: No Hx Substance Use: No Preferred Language: Amharic Communication Ability: Effective Taker Off Hemp Fiber Required: No Beliefs That Will Affect Care: None Current Living Situation: Spouse Current Living Situation Comment: lives with Other Information That Helps Us Care for You: No Feels Safe at Home: Yes Safety Concerns: Feels Safe At This Time Assistive Devices: Denture - Upper Review of Systems A total of 10 systems reviewed and were otherwise negative All systems reviewed & are unremarkable except as noted in HPI & below Physical Exam Vital Signs Vital Signs - 24 hr 12/13/21 12:57 12/13/21 13:22 12/13/21 13:47 Temperature 36.4 C L Temperature Source Temporal Artery Scan Pulse Rate 124 H Pulse Rate [Apical] 127 H 107 H Respiratory Rate 20 20 20 Respiratory Effort / Characteristics Non-Labored Non-Labored Non-Labored Respiratory Depth Normal Normal Normal Blood Pressure 158/93 H Blood Pressure [Left Arm] 126/98 137/102 H Blood Pressure Mean 114 Blood Pressure Mean [Left Arm] 107 113 Blood Pressure Position [Left Arm] Sitting Pulse Oximetry 95 97 96 Oxygen Delivery Method Room Air Room Air Room Air Sepsis Recent Fever Within 48 Hours No Sepsis New/Unexplained Change in Mental Status N/A Sepsis Action Taken by Nursing No Action Required 12/13/21 15:06 12/13/21 15:55 Temperature Temperature Source Pulse Rate 121 H Pulse Rate [Apical] 117 H Respiratory Rate 20 Respiratory Effort / Characteristics Non-Labored Respiratory Depth Normal Blood Pressure 143/88 H Blood Pressure [Left Arm] 147/113 H Blood Pressure Mean Blood Pressure Mean [Left Arm] 124 Blood Pressure Position [Left Arm] Pulse Oximetry 97 Oxygen Delivery Method Room Air Sepsis Recent Fever Within 48 Hours Sepsis New/Unexplained Change in Mental Status Sepsis Action Taken by Nursing GENERAL: alert, well appearing, well nourished, no distress, non-toxic EYE EXAM: normal conjunctiva, PERRL and EOM's grossly intact OROPHARYNX: no exudate, no erythema, lips, buccal mucosa, and tongue normal and mucous membranes are moist NECK: supple, no nuchal rigidity, no adenopathy, non-tender LUNGS: Clear to auscultation. Normal chest wall mechanics, no w/r/r HEART: no murmurs, S1 normal and S2 normal ABDOMEN: abdomen soft, non-tender, normo-active bowel sounds, no masses, no rebound or guarding. Dull to percussion. BACK: Back is symmetrical on inspection and there is no deformity, no midline tenderness, no CVA tenderness. SKIN: no rashes and no bruising UPPER EXTREMITIES: upper extremities are grossly normal. FROM, nml pulses b/l. LOWER EXTREMITIES: No pitting edema. FROM, nml pulses b/l. NEURO EXAM: Normal sensorium, cranial nerves II-XII grossly intact, normal speech, no gross weakness of arms, no gross weakness of legs. Gross sensation intact. Course Administered Medications Sodium Chloride (Nss 1000ml) 1,000 mls @ 75 mls/hr IV .[id number] [facility] Stop: 01/12/22 13:59 Last Admin: 12/14/21 03:28 Dose: 125 mls/hr Documented By: Infusion: 12/14/21 03:28 Dose: 125 mls/hr Documented By: Admin: 12/13/21 20:13 Dose: 125 mls/hr Documented By: Infusion: 12/13/21 20:13 Dose: 125 mls/hr Documented By: Admin: 12/13/21 14:02 Dose: 125 mls/hr Documented By: MARVIN Insulin Aspart (Insulin Aspart Per Unit) 0 units SC [facility] Stop: 01/12/22 17:29 Last Admin: 12/13/21 20:11 Dose: 8 units Documented By: ELVER Co-signed By: MONAE Admin: 12/13/21 19:39 Dose: Not Given Documented By: ELVER Levothyroxine Sodium (Levothyroxine Sodium 150 Mcg Tablet) 150 mcg PO DAILYBB TOD Stop: 01/13/22 06:29 Last Admin: 12/14/21 05:55 Dose: 150 mcg Documented By: ELVER Metoprolol Succinate (Metoprolol Succ 50mg Ext Rel Tab) 150 mg PO BID TOD Stop: 01/12/22 20:59 Last Admin: 12/13/21 20:14 Dose: 150 mg Documented By: ELVER Warfarin Sodium (Warfarin Sod 10 Mg Tab) 10 mg PO [id number] [facility] Stop: 01/12/22 19:29 Last Admin: 12/13/21 20:15 Dose: 10 mg Documented By: ELVER Discontinued Medications Insulin Aspart (Insulin Aspart Per Unit) 0 units SC 0000,0400 TOD Stop: 12/14/21 04:01 Last Admin: 12/14/21 03:55 Dose: Not Given Documented By: Admin: 12/14/21 00:00 Dose: Not Given Documented By: ELVER Insulin Glargine (Lantus Per Unit Charge) 15 units SQ 2100 ONE Stop: 12/13/21 21:01 Last Admin: 12/13/21 21:29 Dose: 15 units Documented By: ELVER Co-signed By: MONAE Ioversol (Optiray 300 100ml) 94 ml IV ONCE ONE Stop: 12/13/21 14:56 Last Admin: 12/13/21 15:00 Dose: 94 ml Documented By: BESSY Metoprolol Tartrate (Metoprolol Tartrate 1 Mg/Ml Vial) 5 mg IV NOW STA Stop: 12/13/21 15:42 Last Admin: 12/13/21 15:55 Dose: 5 mg Documented By: MARVIN Medical Decision Making Differential Diagnosis Differential diagnoses includes but is not limited to gastritis, peptic ulcer disease, GERD, gallbladder disease, pancreatitis, small bowel obstruction, acute coronary syndrome, pericarditis, ischemic bowel, irritable bowel disease, irritable bowel syndrome, appendicitis, diverticulitis, malignancy, hernia, urinary tract infection, torsion, [/ectopic (if female)], perforation, trauma, infectious. Medical Records Attestation: I reviewed the patient's medical records. Home Medications Current Medication List: was personally reviewed by me Laboratory Data Attestation: I reviewed the patient's lab results. Result diagrams: 12/14/21 06:22 12/14/21 06:22 Lab Results 12/13/21 12/13/21 12/13/21 Range/Units 13:15 13:19 13:19 WBC 10.55 (4.8-10.8) K/ul RBC 4.21 L (4.63-6.08) M/uL Hgb 13.9 L (14.0-18.0) g/dl Hct 39.7 L (40.1-51.0) % MCV 94.3 (80.0-100.0) fL MCH 33.0 (25.0-34.0) pg MCHC 35.0 (32.0-36.0) g/dL RDW Std Deviation 45.1 (36.4-46.3) fL RDW Coeff of [place] 13.0 (11.5-14.5) % Plt Count 168 (130-400) K/uL MPV 11.4 (9.4-12.4) fL Immature Gran % (Auto) 0.3 % Neut % (Auto) 69.1 % Lymph % (Auto) 19.7 % Towner % (Auto) 10.1 % Eos % (Auto) 0.6 % Baso % (Auto) 0.2 % Neut # (Auto) 7.29 H (1.4-6.5) K/uL Lymph # (Auto) 2.08 (1.2-3.4) K/uL Towner # (Auto) 1.07 H (0.24-0.82) K/uL Eos # (Auto) 0.06 (0-0.50) K/uL Baso # (Auto) 0.02 (0-0.2) K/uL Immature Gran # (Auto) 0.03 H (0.00-0.02) K/uL PT (9.0-12.0) Seconds INR (0.9-1.1) Sodium 132 L (136-145) mmol/L Potassium 3.9 (3.5-5.1) mmol/L Chloride 99 (98-107) mmol/L Carbon Dioxide 23 (21-32) mmol/L Anion Gap 10 (3-11) BUN 17 (6-23) mg/dl Creatinine 1.13 (0.6-1.4) mg/dl Est Cr Clr Drug Dosing 70.5 ml/min Est GFR ( Amer) 72.8 ml/min Est GFR (Non-Af Amer) 62.8 ml/min BUN/Creatinine Ratio 15.0 (10-20) Glucose 340 H* (70-99(Fasting)) mg/dl POC Glucose (70-99) mg/dl Lactate (0.4-2.0) mmol/L Calcium 9.2 (8.5-10.1) mg/dl Magnesium 1.7 (1.7-2.4) mg/dl Total Bilirubin 1.1 H (0.2-1.0) mg/dl AST 14 (13-39) U/L ALT 12 (7-52) U/L Alkaline Phosphatase 44 (34-104) U/L Troponin I High Sens 8.5 (0-20) pg/ml C-Reactive Protein 17.04 H (0-0.5) mg/dl Total Protein 7.9 (6.0-8.3) gm/dl Albumin 4.0 (3.4-5.0) gm/dl Globulin 3.9 (2.5-4.0) gm/dl Albumin/Globulin Ratio 1.0 (0.9-2) Triglycerides 101 (0-150) mg/dl Cholesterol 147 (0-200) mg/dl LDL Cholesterol, Calc 86 mg/dl VLDL Cholesterol, Calc 20 (0-30) mg/dl HDL Cholesterol 41 mg/dl Cholesterol/HDL Ratio 3.6 (0-5) Lipase 683 H (11-82) U/L Urine Color Urine Appearance (Clear) Urine pH (4.5-7.5) Ur Specific [place] (1.000-1.030) Urine Protein (Negative) Urine Glucose (UA) (Negative) Urine Ketones (Negative) Urine Blood (Negative) Urine Nitrite (Negative) Urine Bilirubin (Negative) Urine Urobilinogen (Negative) Ur Leukocyte Esterase (Negative) Urine WBC (Auto) (0-5) /hpf Urine RBC (Auto) (0-4) /hpf U Hyaline Cast (Auto) (0-5) /lpf U Epithel Cells (Auto) (0-5) /lpf Urine Bacteria (Auto) (Negative) Stl C. cayetanensis PCR (NotDetected) Stool Rotavirus A PCR (NotDetected) Stl Adenov F 40/41 PCR (NotDetected) Stool Astrovirus (PCR) (NotDetected) Stool Campylobacter PCR (NotDetected) Stl C. diff Tox A/B PCR (NotDetected) Stool Cryptosporidium PCR (NotDetected) Stl E.coli Shiga Tox PCR (NotDetected) Stl Enterotoxigenic E PCR (NotDetected) Stool EPEC (PCR) (NotDetected) Stool EAEC (PCR) (NotDetected) Stl E. histolytica PCR (NotDetected) Stool Giardia Lamblia PCR (NotDetected) Stool Salmonella PCR (NotDetected) Stool Sapovirus (PCR) (NotDetected) Stl P. shigelloides PCR (NotDetected) Stl Shigella/EIEC PCR (NotDetected) St Y.enterocolitica PCR (NotDetected) Stool Vibrio (PCR) (NotDetected) Stl Vibrio cholerae PCR (NotDetected) Stl Norovirus GI/GII PCR (NotDetected) SARS-CoV-2 (PCR) (Negative) Influenza Type A (PCR) (Neg) Influenza Type B (PCR) (Neg) RSV (RT-PCR) (Neg) 12/13/21 12/13/21 12/13/21 Range/Units 13:19 13:40 13:50 WBC (4.8-10.8) K/ul RBC (4.63-6.08) M/uL Hgb (14.0-18.0) g/dl Hct (40.1-51.0) % MCV (80.0-100.0) fL MCH (25.0-34.0) pg MCHC (32.0-36.0) g/dL RDW Std Deviation (36.4-46.3) fL RDW Coeff of Carson (11.5-14.5) % Plt Count (130-400) K/uL MPV (9.4-12.4) fL Immature Gran % (Auto) % Neut % (Auto) % Lymph % (Auto) % Towner % (Auto) % Eos % (Auto) % Baso % (Auto) % Neut # (Auto) (1.4-6.5) K/uL Lymph # (Auto) (1.2-3.4) K/uL Towner # (Auto) (0.24-0.82) K/uL Eos # (Auto) (0-0.50) K/uL Baso # (Auto) (0-0.2) K/uL Immature Gran # (Auto) (0.00-0.02) K/uL PT 24.7 H (9.0-12.0) Seconds INR 2.4 H (0.9-1.1) Sodium (136-145) mmol/L Potassium (3.5-5.1) mmol/L Chloride (98-107) mmol/L Carbon Dioxide (21-32) mmol/L Anion Gap (3-11) BUN (6-23) mg/dl Creatinine (0.6-1.4) mg/dl Est Cr Clr Drug Dosing ml/min Est GFR ( Amer) ml/min Est GFR (Non-Af Amer) ml/min BUN/Creatinine Ratio (10-20) Glucose (70-99(Fasting)) mg/dl POC Glucose (70-99) mg/dl Lactate 1.6 (0.4-2.0) mmol/L Calcium (8.5-10.1) mg/dl Magnesium (1.7-2.4) mg/dl Total Bilirubin (0.2-1.0) mg/dl AST (13-39) U/L ALT (7-52) U/L Alkaline Phosphatase (34-104) U/L Troponin I High Sens (0-20) pg/ml C-Reactive Protein (0-0.5) mg/dl Total Protein (6.0-8.3) gm/dl Albumin (3.4-5.0) gm/dl Globulin (2.5-4.0) gm/dl Albumin/Globulin Ratio (0.9-2) Triglycerides Cancelled (0-150) mg/dl Cholesterol Cancelled (0-200) mg/dl LDL Cholesterol, Calc Cancelled mg/dl VLDL Cholesterol, Calc Cancelled (0-30) mg/dl HDL Cholesterol Cancelled mg/dl Cholesterol/HDL Ratio Cancelled (0-5) Lipase (11-82) U/L Urine Color Urine Appearance (Clear) Urine pH (4.5-7.5) Ur Specific [place] (1.000-1.030) Urine Protein (Negative) Urine Glucose (UA) (Negative) Urine Ketones (Negative) Urine Blood (Negative) Urine Nitrite (Negative) Urine Bilirubin (Negative) Urine Urobilinogen (Negative) Ur Leukocyte Esterase (Negative) Urine WBC (Auto) (0-5) /hpf Urine RBC (Auto) (0-4) /hpf U Hyaline Cast (Auto) (0-5) /lpf U Epithel Cells (Auto) (0-5) /lpf Urine Bacteria (Auto) (Negative) Stl C. cayetanensis PCR (NotDetected) Stool Rotavirus A PCR (NotDetected) Stl Adenov F 40/41 PCR (NotDetected) Stool Astrovirus (PCR) (NotDetected) Stool Campylobacter PCR (NotDetected) Stl C. diff Tox A/B PCR (NotDetected) Stool Cryptosporidium PCR (NotDetected) Stl E.coli Shiga Tox PCR (NotDetected) Stl Enterotoxigenic E PCR (NotDetected) Stool EPEC (PCR) (NotDetected) Stool EAEC (PCR) (NotDetected) Stl E. histolytica PCR (NotDetected) Stool Giardia Lamblia PCR (NotDetected) Stool Salmonella PCR (NotDetected) Stool Sapovirus (PCR) (NotDetected) Stl P. shigelloides PCR (NotDetected) Stl Shigella/EIEC PCR (NotDetected) St Y.enterocolitica PCR (NotDetected) Stool Vibrio (PCR) (NotDetected) Stl Vibrio cholerae PCR (NotDetected) Stl Norovirus GI/GII PCR (NotDetected) SARS-CoV-2 (PCR) (Negative) Influenza Type A (PCR) (Neg) Influenza Type B (PCR) (Neg) RSV (RT-PCR) (Neg) 12/13/21 12/13/21 12/13/21 Range/Units 14:10 14:51 14:51 WBC (4.8-10.8) K/ul RBC (4.63-6.08) M/uL Hgb (14.0-18.0) g/dl Hct (40.1-51.0) % MCV (80.0-100.0) fL MCH (25.0-34.0) pg MCHC (32.0-36.0) g/dL RDW Std Deviation (36.4-46.3) fL RDW Coeff of Carson (11.5-14.5) % Plt Count (130-400) K/uL MPV (9.4-12.4) fL Immature Gran % (Auto) % Neut % (Auto) % Lymph % (Auto) % Towner % (Auto) % Eos % (Auto) % Baso % (Auto) % Neut # (Auto) (1.4-6.5) K/uL Lymph # (Auto) (1.2-3.4) K/uL Towner # (Auto) (0.24-0.82) K/uL Eos # (Auto) (0-0.50) K/uL Baso # (Auto) (0-0.2) K/uL Immature Gran # (Auto) (0.00-0.02) K/uL PT (9.0-12.0) Seconds INR (0.9-1.1) Sodium (136-145) mmol/L Potassium (3.5-5.1) mmol/L Chloride (98-107) mmol/L Carbon Dioxide (21-32) mmol/L Anion Gap (3-11) BUN (6-23) mg/dl Creatinine (0.6-1.4) mg/dl Est Cr Clr Drug Dosing ml/min Est GFR ( Amer) ml/min Est GFR (Non-Af Amer) ml/min BUN/Creatinine Ratio (10-20) Glucose (70-99(Fasting)) mg/dl POC Glucose (70-99) mg/dl Lactate (0.4-2.0) mmol/L Calcium (8.5-10.1) mg/dl Magnesium (1.7-2.4) mg/dl Total Bilirubin (0.2-1.0) mg/dl AST (13-39) U/L ALT (7-52) U/L Alkaline Phosphatase (34-104) U/L Troponin I High Sens (0-20) pg/ml C-Reactive Protein (0-0.5) mg/dl Total Protein (6.0-8.3) gm/dl Albumin (3.4-5.0) gm/dl Globulin (2.5-4.0) gm/dl Albumin/Globulin Ratio (0.9-2) Triglycerides (0-150) mg/dl Cholesterol (0-200) mg/dl LDL Cholesterol, Calc mg/dl VLDL Cholesterol, Calc (0-30) mg/dl HDL Cholesterol mg/dl Cholesterol/HDL Ratio (0-5) Lipase (11-82) U/L Urine Color Yellow Urine Appearance Clear (Clear) Urine pH 5.5 (4.5-7.5) Ur Specific [place] 1.036 H (1.000-1.030) Urine Protein 2+ H (Negative) Urine Glucose (UA) 3+ H (Negative) Urine Ketones Trace H (Negative) Urine Blood Trace H (Negative) Urine Nitrite Negative (Negative) Urine Bilirubin Negative (Negative) Urine Urobilinogen Negative (Negative) Ur Leukocyte Esterase Negative (Negative) Urine WBC (Auto) 1-5 (0-5) /hpf Urine RBC (Auto) 0-4 (0-4) /hpf U Hyaline Cast (Auto) 1-5 (0-5) /lpf U Epithel Cells (Auto) 5-10 H (0-5) /lpf Urine Bacteria (Auto) Negative (Negative) Stl C. cayetanensis PCR Not Detected (NotDetected) Stool Rotavirus A PCR Not Detected (NotDetected) Stl Adenov F 40/41 PCR Not Detected (NotDetected) Stool Astrovirus (PCR) Not Detected (NotDetected) Stool Campylobacter PCR Not Detected (NotDetected) Stl C. diff Tox A/B PCR Not Detected (NotDetected) Stool Cryptosporidium PCR Not Detected (NotDetected) Stl E.coli Shiga Tox PCR Not Detected (NotDetected) Stl Enterotoxigenic E PCR Not Detected (NotDetected) Stool EPEC (PCR) Not Detected (NotDetected) Stool EAEC (PCR) Not Detected (NotDetected) Stl E. histolytica PCR Not Detected (NotDetected) Stool Giardia Lamblia PCR Not Detected (NotDetected) Stool Salmonella PCR Not Detected (NotDetected) Stool Sapovirus (PCR) Not Detected (NotDetected) Stl P. shigelloides PCR Not Detected (NotDetected) Stl Shigella/EIEC PCR Not Detected (NotDetected) St Y.enterocolitica PCR Not Detected (NotDetected) Stool Vibrio (PCR) Not Detected (NotDetected) Stl Vibrio cholerae PCR Not Detected (NotDetected) Stl Norovirus GI/GII PCR Not Detected (NotDetected) SARS-CoV-2 (PCR) POSITIVE A* (Negative) Influenza Type A (PCR) Negative (Neg) Influenza Type B (PCR) Negative (Neg) RSV (RT-PCR) Negative (Neg) 12/13/21 Range/Units 15:59 WBC (4.8-10.8) K/ul RBC (4.63-6.08) M/uL Hgb (14.0-18.0) g/dl Hct (40.1-51.0) % MCV (80.0-100.0) fL MCH (25.0-34.0) pg MCHC (32.0-36.0) g/dL RDW Std Deviation (36.4-46.3) fL RDW Coeff of Carson (11.5-14.5) % Plt Count (130-400) K/uL MPV (9.4-12.4) fL Immature Gran % (Auto) % Neut % (Auto) % Lymph % (Auto) % Towner % (Auto) % Eos % (Auto) % Baso % (Auto) % Neut # (Auto) (1.4-6.5) K/uL Lymph # (Auto) (1.2-3.4) K/uL Towner # (Auto) (0.24-0.82) K/uL Eos # (Auto) (0-0.50) K/uL Baso # (Auto) (0-0.2) K/uL Immature Gran # (Auto) (0.00-0.02) K/uL PT (9.0-12.0) Seconds INR (0.9-1.1) Sodium (136-145) mmol/L Potassium (3.5-5.1) mmol/L Chloride (98-107) mmol/L Carbon Dioxide (21-32) mmol/L Anion Gap (3-11) BUN (6-23) mg/dl Creatinine (0.6-1.4) mg/dl Est Cr Clr Drug Dosing ml/min Est GFR ( Amer) ml/min Est GFR (Non-Af Amer) ml/min BUN/Creatinine Ratio (10-20) Glucose (70-99(Fasting)) mg/dl POC Glucose 299 H (70-99) mg/dl Lactate (0.4-2.0) mmol/L Calcium (8.5-10.1) mg/dl Magnesium (1.7-2.4) mg/dl Total Bilirubin (0.2-1.0) mg/dl AST (13-39) U/L ALT (7-52) U/L Alkaline Phosphatase (34-104) U/L Troponin I High Sens (0-20) pg/ml C-Reactive Protein (0-0.5) mg/dl Total Protein (6.0-8.3) gm/dl Albumin (3.4-5.0) gm/dl Globulin (2.5-4.0) gm/dl Albumin/Globulin Ratio (0.9-2) Triglycerides (0-150) mg/dl Cholesterol (0-200) mg/dl LDL Cholesterol, Calc mg/dl VLDL Cholesterol, Calc (0-30) mg/dl HDL Cholesterol mg/dl Cholesterol/HDL Ratio (0-5) Lipase (11-82) U/L Urine Color Urine Appearance (Clear) Urine pH (4.5-7.5) Ur Specific [place] (1.000-1.030) Urine Protein (Negative) Urine Glucose (UA) (Negative) Urine Ketones (Negative) Urine Blood (Negative) Urine Nitrite (Negative) Urine Bilirubin (Negative) Urine Urobilinogen (Negative) Ur Leukocyte Esterase (Negative) Urine WBC (Auto) (0-5) /hpf Urine RBC (Auto) (0-4) /hpf U Hyaline Cast (Auto) (0-5) /lpf U Epithel Cells (Auto) (0-5) /lpf Urine Bacteria (Auto) (Negative) Stl C. cayetanensis PCR (NotDetected) Stool Rotavirus A PCR (NotDetected) Stl Adenov F 40/41 PCR (NotDetected) Stool Astrovirus (PCR) (NotDetected) Stool Campylobacter PCR (NotDetected) Stl C. diff Tox A/B PCR (NotDetected) Stool Cryptosporidium PCR (NotDetected) Stl E.coli Shiga Tox PCR (NotDetected) Stl Enterotoxigenic E PCR (NotDetected) Stool EPEC (PCR) (NotDetected) Stool EAEC (PCR) (NotDetected) Stl E. histolytica PCR (NotDetected) Stool Giardia Lamblia PCR (NotDetected) Stool Salmonella PCR (NotDetected) Stool Sapovirus (PCR) (NotDetected) Stl P. shigelloides PCR (NotDetected) Stl Shigella/EIEC PCR (NotDetected) St Y.enterocolitica PCR (NotDetected) Stool Vibrio (PCR) (NotDetected) Stl Vibrio cholerae PCR (NotDetected) Stl Norovirus GI/GII PCR (NotDetected) SARS-CoV-2 (PCR) (Negative) Influenza Type A (PCR) (Neg) Influenza Type B (PCR) (Neg) RSV (RT-PCR) (Neg) Imaging Data Radiologist's Impression: Abdomen/Pelvis CT 12/13/21 13:46 CT abd pelvis IV con only CLINICAL HISTORY: abd pain TECHNIQUE: Helical axial images of the abdomen and pelvis were obtained and displayed. Automated dose lowering techniques and/or adjustment according to patient size were utilized for this exam. This exam was performed with intravenous contrast. CT DOSE: 1259.58 mGy.cm COMPARISON: None available at the time of this dictation. FINDINGS: Lower chest: No acute abnormality Liver: Focal fatty changes are noted about the falciform ligament. Gallbladder and biliary tree: Cholelithiasis is seen without evidence of cholecystitis. No intra- or extrahepatic biliary ductal dilation. Pancreas: Fat stranding is seen about the pancreas. Spleen: Unremarkable. Adrenals: Unremarkable. Kidneys and ureters: Perinephric stranding is noted bilaterally. Bladder: Unremarkable. Reproductive organs: Prostatomegaly is seen. Bowel: Unremarkable appearance of the bowel. The appendix is normal. Lymph nodes Retroperitoneal: Unremarkable. Pelvic: Unremarkable. Mesenteric: Unremarkable. Peritoneum: Fat stranding is seen in the peripancreatic region and surrounding peritoneum. Vessels: Atherosclerotic calcifications are seen. Abdominal wall: Unremarkable. Bones: Degenerative changes in the visualized spine. IMPRESSION: Fat stranding about the pancreas is suggestive of pancreatitis. No necrosis or acute inflammatory collections are seen. ACT 112: Negative or not required by law. Electronically signed by: Jose Cotto M.D. 12/13/2021 3:07 PM ECG Data Attestation: I personally reviewed and interpreted this ECG as follows: Indication: + abdominal pain Rate (beats per minute): 126 Rhythm: + atrial fibrillation ECG Intervals/blocks: + Normal QRS and + Normal QT ECG Mason: + Left axis deviation ECG ST segments: + Nonspecific ST abnormalities MDM Narrative An order was placed for continuous cardiac monitoring. The monitor shows a rate of _90_ with atrial fibrillation___ rhythm. This is a 76-year-old male presents emergency department with complaints of abdominal pain for 1 week. Patient was afebrile and hemodynamically stable on arrival. He was noted to be in his chronic A. fib for which he is anticoagulated. Labs drawn and sent and did reveal a therapeutic INR, as well as an elevated lipase. He was noted to have a normal lactic acid and be hyperglycemic. Patient does admit to difficulty controlling his blood sugar levels as well as dietary indiscretions regarding his diabetes. Patient noted to have peripancreatic inflammation on CT, no other acute abdominal emergency. Patient was also noted to be COVID-positive. I suspect both pancreatitis and COVID are contributing to his hyperglycemia. Patient stated he has had pancreatitis previously although he does not know the etiology. He denies any use of alcohol. He does not recall what his last triglyceride level was. Patient's hyperglycemia did improve here with IV fluids. Case discussed with hospitalist for additional evaluation and management. Impression & Plan Abdominal pain, Chronic atrial fibrillation, Pancreatitis, COVID-19 Discharge Plan Visit Data Chief Complaint: Abdominal Pain Stated Complaint: BACK PAIN, ABD PAIN, POOR APPETITE ED Provider: Alana Nobles Discharge Problem: Abdominal pain, Chronic atrial fibrillation, Pancreatitis, COVID-19 Patient Disposition: Admitted As Inpatient Discharge Instructions Interventions: ED Discharge Assessment Last Done: 12/13/21 18:12
[2021-12-13 14:15] LABS: Bilirubin,Total 1.1 mg/dl (0.2-1.0); Calcium 9.2 mg/dl (8.5-10.1); Creatinine Clr Calc Pharmacy 70.5 ml/min; Est GFR (African American) 72.8 ml/min; Est GFR (Non-African American) 62.8 ml/min; Globulin 3.9 gm/dl (2.5-4.0); Magnesium 1.7 mg/dl (1.7-2.4); Potassium 3.9 mmol/L (3.5-5.1); Total Protein 7.9 gm/dl (6.0-8.3)
[2021-12-13 14:18] LABS: INR 2.4 (0.9-1.1); Prothrombin Time 24.7 Seconds (9.0-12.0)
[2021-12-13] MEDS ORDERED: OPTIRAY 300 100mL IV ONE (14:55)
[2021-12-13 14:57] LABS: Influenza A virus by PCR Negative (Neg); Influenza B virus by PCR Negative (Neg); RSV by PCR Negative (Neg)
[2021-12-13 14:58] LABS: SARS CoV2 RNA(COVID-19) InHosp POSITIVE (Negative)
--- NOTE | 2021-12-13 15:08 | CT Scan Report ---
CT abd pelvis IV con only CLINICAL HISTORY: abd pain TECHNIQUE: Helical axial images of the abdomen and pelvis were obtained and displayed. Automated dose lowering techniques and/or adjustment according to patient size were utilized for this exam. This e xam was performed with intravenous contrast. CT DOSE: 1259.58 mGy.cm COMPARISON: None available at the time of this dictation. FINDINGS: Lower chest: No acute abnormality Liver: Focal fatty changes are noted about the falciform ligament. Gallbladder and biliary tree: Cholelithiasis is seen without evidence of cholecystitis. No intra- or extrahepatic biliary ductal dilation. Pancreas: Fat stranding is seen about the pancreas. Spleen: Unremarkable. Adrenals: Unremarkable. Kidneys and ureters: Perinephric stranding is noted bilaterally. Bladder: Unremarkable. Reproductive organs: Prostatomegaly is seen. Bowel: Unremarkable appearance of the bowel. The appendix is normal. Lymph nodes Retroperitoneal: Unremarkable. Pelvic: Unremarkable. Mesenteric: Unremarkable. Peritoneum: Fat stranding is seen in the peripancreatic region and surrounding peritoneum. Vessels: Atherosclerotic calcifications are seen. Abdominal wall: Unremarkable. Bones: Degenerative changes in the visualized spine. IMPRESSION: Fat stranding about the pancreas is suggestive of pancreatitis. No necrosis or acute inflammatory col lections are seen. ACT 112: Negative or not required by law. Electronically signed by: Jose Cotto M.D. 12/13/2021 3:07 PM
[2021-12-13 15:18] LABS: Appearance Urine Clear (Clear); Bacteria Urine Automated Negative (Negative); Bilirubin Urine Negative (Negative); Blood Urine Trace (Negative); Color Urine Yellow; Glucose Urine UA 3+ (Negative); Ketones Urine Trace (Negative); Leukocyte Esterase Urine Negative (Negative); Nitrite Urine Negative (Negative); Protein Urine 2+ (Negative); RBC Urine Automated 0-4 /hpf (0-4); Specific Gravity Urine 1.036 (1.000-1.030); Urobilinogen Urine Negative (Negative); pH Urine 5.5 (4.5-7.5)
[2021-12-13] MEDS ORDERED: METOPROLOL TARTRATE 1 MG/ML VIAL IV STA (15:41)
--- NOTE | 2021-12-13 15:59 | History & Physical Report ---
Date of Service December 13, 2021 Assessment & Plan (1) Pancreatitis: Plan: This is a 76-year-old male with PMH of type 2 diabetes, hypothyroidism, obstructive sleep apnea, pacemaker, hypertension, CAD s/p stent and other medical problems listed below who presents with abdominal pain x 4 days and was found to have pancreatitis and COVID-19. Worsening abdominal and back pain x4 days History of metformin use, laxatives. No other recent medication changes Lipase 683. Repeat tomorrow Obtaining right upper quadrant ultrasound to evaluate for gallstones. We will also get fasting lipid profile in a.m. Continue IV fluids, clear liquid diet, analgesics as needed (2) COVID-19: Plan: Symptomatic for over 2 weeks. Not short of breath, oxygen saturation of 97% on room air. No indication for treatment at this time. COVID PCR positive. Keep on isolation until evaluated by infection control (3) HTN (hypertension): Plan: Continue home Toprol. Not taking losartan due to swelling in legs, per patient (4) Chronic atrial fibrillation: Plan: Initial ECG with A fib with RVR. Given 5mg IV Lopressor in ED. Continue home dose Toprol 150mg BID. PRN Lopressor ordered as well. Monitor on telemetry (5) Hypothyroidism: Plan: Continue levothyroxine (6) Diabetes mellitus, type II: Plan: A1c of 8.2 in May. Takes metformin at home Hold home agents SSI while in-patient Glycemic consult placed given BSG >300 on admission, on clears BSG AC HS (7) CAD (coronary artery disease): Plan: S/p stent placement. Continue aspirin, statin, Toprol (8) ASHLEY (obstructive sleep apnea): Plan: DVT Ppx: Coumadin Code status: FULL PCP: Tom Dispo: Admitted to PCU Patient seen in collaboration with Dr. Donovan. Please see addendum. History of Present Illness Chief Complaint: Abdominal pain Primary Care Provider: Darren Santos MD This is a 76-year-old male with PMH of type 2 diabetes, hypothyroidism, obstructive sleep apnea, pacemaker, hypertension, CAD s/p stent and other medical problems listed below who presents with abdominal pain x 4 days. Pain is in lower stomach and is made worse with deep breaths. Also endorsing pain in mid back that radiates forward. Has had liquid stool for past 4 days was concerned he had a bowel obstruction due to bloating and abdomen, so he has been taking milk of magnesia. Denies any nausea or vomiting. Was seen in clinic on 11/30/2021 with viral symptoms and treated with 7-day course of doxycycline. Was not tested for COVID at that time. Since then, fever, chills, cough and congestion have subsided. Denies any shortness of breath. States that he took all morning medications today. Is no longer taking losartan and has not been taking Lasix due to no lower leg swelling. Denies any headache, chest pain, palpitations, wheezing, dysuria or constipation. Allergies Allergy/AdvReac Type Severity Reaction Status Date / Time pollen extracts Allergy Intermediate SNEEZING, Verified 12/13/21 16:03 CONGESTION glipizide AdvReac Intermediate gi upset Verified 12/13/21 16:03 Home Medications Medication Instructions Recorded Confirmed Type aspirin 81 mg tablet,delayed 81 mg PO DAILY 03/05/19 12/13/21 History release (Vinny Low Dose Aspirin) metoprolol succinate 100 mg 150 mg PO BID 03/05/19 12/13/21 History tablet,extended release 24 hr nitroglycerin 0.4 mg sublingual 0.4 mg sublingual DIRECTED PRN 03/05/19 12/13/21 History tablet Chest Pain rosuvastatin 5 mg tablet 5 mg PO WK 03/05/19 12/13/21 History furosemide 20 mg tablet (Lasix) 20 mg PO DAILY PRN Fluid Retention 12/13/21 12/13/21 History levothyroxine 150 mcg tablet 150 mcg PO DAILYBB 12/13/21 12/13/21 History metformin 1,000 mg tablet 1,000 mg PO BID 12/13/21 12/13/21 History potassium chloride 10 mEq 10 meq PO DAILY PRN TAKES WHEN 12/13/21 12/13/21 History tablet,extended release(part/cryst) USES LASIX. warfarin 5 mg tablet See Rx Instructions .Route .COMPLEX 12/13/21 12/13/21 History Past Med/Surg History Medical History Atrial fibrillation CAD (coronary artery disease) Diabetes mellitus, type II History of LA (myocardial infarction) HTN (hypertension) Hypothyroidism ASHLEY (obstructive sleep apnea) Tachy-mirtha syndrome Surgical History History of heart artery stent Inguinal hernia s/p repair S/P placement of cardiac pacemaker S/P tonsillectomy and adenoidectomy Family History Other Diabetes Heart disease Social History Smoking Status: Never smoker Hx Alcohol Use: No Hx Substance Use: No Preferred Language: Algerian Beliefs That Will Affect Care: None Current Living Situation: Spouse Current Living Situation Comment: lives with Feels Safe at Home: Yes Assistive Devices: Denture - Upper Review of Systems Review of Systems: At least ten systems reviewed and negative except as noted in the HPI. Physical Exam Physical Exam: Please see Dr. Gupta's addendum for physical exam. Results & Data Results & Data ([facility]) Vital Signs (Past 12 Hours) Vital Signs Temp Pulse Pulse Resp BP BP Pulse Ox 12/13/21 15:55 121 H 143/88 H 12/13/21 15:06 117 H 20 147/113 H 97 12/13/21 13:47 107 H 20 137/102 H 96 12/13/21 13:22 127 H 20 126/98 97 12/13/21 12:57 36.4 C L 124 H 20 158/93 H 95 O2 Del Method 12/13/21 15:55 12/13/21 15:06 Room Air 12/13/21 13:47 Room Air 12/13/21 13:22 Room Air 12/13/21 12:57 Room Air Laboratory Results Short CBC 12/13/21 Range/Units 13:19 WBC 10.55 (4.8-10.8) K/ul Hgb 13.9 L (14.0-18.0) g/dl Hct 39.7 L (40.1-51.0) % Plt Count 168 (130-400) K/uL BMP 12/13/21 13:19 Sodium 132 L Potassium 3.9 Chloride 99 Carbon Dioxide 23 BUN 17 Creatinine 1.13 Glucose 340 H* Calcium 9.2 Liver Function 12/13/21 Range/Units 13:19 Total Bilirubin 1.1 H (0.2-1.0) mg/dl AST 14 (13-39) U/L ALT 12 (7-52) U/L Alkaline Phosphatase 44 (34-104) U/L Albumin 4.0 (3.4-5.0) gm/dl Urine 12/13/21 Range/Units 14:51 Urine Color Yellow Urine Appearance Clear (Clear) Urine pH 5.5 (4.5-7.5) Ur Specific Ceres 1.036 H (1.000-1.030) Urine Protein 2+ H (Negative) Urine Glucose (UA) 3+ H (Negative) Diagnostic Findings Abdomen/Pelvis CT 12/13/21 13:46 CT abd pelvis IV con only CLINICAL HISTORY: abd pain TECHNIQUE: Helical axial images of the abdomen and pelvis were obtained and displayed. Automated dose lowering techniques and/or adjustment according to patient size were utilized for this exam. This exam was performed with intravenous contrast. CT DOSE: 1259.58 mGy.cm COMPARISON: None available at the time of this dictation. FINDINGS: Lower chest: No acute abnormality Liver: Focal fatty changes are noted about the falciform ligament. Gallbladder and biliary tree: Cholelithiasis is seen without evidence of cholecystitis. No intra- or extrahepatic biliary ductal dilation. Pancreas: Fat stranding is seen about the pancreas. Spleen: Unremarkable. Adrenals: Unremarkable. Kidneys and ureters: Perinephric stranding is noted bilaterally. Bladder: Unremarkable. Reproductive organs: Prostatomegaly is seen. Bowel: Unremarkable appearance of the bowel. The appendix is normal. Lymph nodes Retroperitoneal: Unremarkable. Pelvic: Unremarkable. Mesenteric: Unremarkable. Peritoneum: Fat stranding is seen in the peripancreatic region and surrounding peritoneum. Vessels: Atherosclerotic calcifications are seen. Abdominal wall: Unremarkable. Bones: Degenerative changes in the visualized spine. IMPRESSION: Fat stranding about the pancreas is suggestive of pancreatitis. No necrosis or acute inflammatory collections are seen. ACT 112: Negative or not required by law. Electronically signed by: Jose Cotto M.D. 12/13/2021 3:07 PM Supervising Physician Co-Signing Physician Notes Patient independently seen and agrees above documentation by Rosemary Ybarra. Patient is a 76-year-old male with past medical history of hypertension, A. fib on metoprolol/warfarin, diabetes on metformin presents to the hospital with complaint of abdominal pain for 3 days. Patient noticed that the he started to develop abdominal pain about 3 days ago which was radiating to his back. He was also feeling weak since last few days as well. He denies fevers, chills, nausea, vomiting, chest pain or shortness of breath. Patient denies any history of alcohol abuse or smoking. On arrival to the ED, patient was in A. fib with ventricle rate of 120, normotensive and in room air. Work-up in the labs shows lipase was elevated to 600. CT abdomen was consistent with pancreatitis. He was also found to be covid 19 positive. Physical exam Constitutional: Pleasant male in no acute distress, sitting up at the end of the bed. Head: Normocephalic, Atraumatic Eyes: PERRL, conjunctivae normal, anicteric sclerae ENMT: external ear and nose normal, oropharynx normal Neck: trachea midline, no thyromegaly normal visual inspection Respiratory: normal respiratory effort, lungs clear to auscultation, no wheeze, rales, rhonchi. Normal insp/exp effort, no accessory muscle use Cardiovascular: Irregular, no murmur, no edema Vessels: no JVD or carotid bruit Chest: normal inspection of chest Abdomen: Tenderness in the epigastric region present, no guarding or rigidity Musculoskeletal: no cyanosis or clubbing, extremities motor strength 5/5 Skin: no rashes, warm and dry normal turgor Neurologic: PERRL, EOMI, accommodation nl, no face palsy, no dysarthria CN's II- XI intact bilaterally and moves all extremities Psychiatric: A+Ox3, euthymic affect : deferred Assessment/plan Acute pancreatitis: Abdomen pain for last 3 days. No clear cause; nonalcoholic. CT abdomen remarkable for cholelithiasis. Will obtain right upper quadrant ultrasound, lipid panel start gentle hydration with LR at 125 cc/h, and start clear liquid diet. We will hold his Lasix which can potentially cause acute pancreatitis. A. fib with RVR; ventricular rate in range of 120s. We will continue his home metoprolol and continue his warfarin COVID-19asymptomatic; continue to monitor. Type 2 diabetes mellitusstarted on insulin as per pharmacy. Hypothyroidismcontinued levothyroxine Hyperlipidemiacontinue rosuvastatin
[2021-12-13] MEDS ORDERED: PHARMACY GLYCEMIC MGMT CONSULT PRN (16:57)
[2021-12-13] MEDS ORDERED: WARFARIN SOD 5 MG TAB PO SCH (17:00)
[2021-12-13 17:04] LABS: Adenovirus F 40/41 PCR Not Detected (NotDetected); Astrovirus PCR Not Detected (NotDetected); Campylobacter PCR Not Detected (NotDetected); Clostridium diff Toxin A/B PCR Not Detected (NotDetected); Cryptosporidium PCR Not Detected (NotDetected); Cyclospora cayetanensis PCR Not Detected (NotDetected); Entamoeba histolytica PCR Not Detected (NotDetected); Enteroaggregative E.coli(EAEC) Not Detected (NotDetected); Enteropathogenic E.coli (EPEC) Not Detected (NotDetected); Enterotoxigenic E.coli (ETEC) Not Detected (NotDetected); Giardia lamblia PCR Not Detected (NotDetected); Norovirus GI/GII PCR Not Detected (NotDetected); Plesiomonas shigelloides PCR Not Detected (NotDetected); Rotavirus A PCR Not Detected (NotDetected); Salmonella PCR Not Detected (NotDetected); Sapovirus PCR Not Detected (NotDetected); Shiga-like Toxin E.coli (STEC) Not Detected (NotDetected); Shigella/Enteroinvasive E.coli Not Detected (NotDetected); Vibrio cholerae PCR Not Detected (NotDetected); Vibrio species PCR Not Detected (NotDetected); Yersinia enterocolitica PCR Not Detected (NotDetected)
--- NOTE | 2021-12-13 17:08 | Communication Note ---
Date of Service: December 13, 2021 Patient is a 76-year-old male with past medical history of hypertension, A. fib on metoprolol/warfarin, diabetes on metformin presents to the hospital with complaint of abdominal pain for 3 days. Patient noticed that the he started to develop abdominal pain about 3 days ago which was radiating to his back. He was also feeling weak since last few days as well. He denies fevers, chills, nausea, vomiting, chest pain or shortness of breath. Patient denies any history of alcohol abuse or smoking. On arrival to the ED, patient was in A. fib with ventricle rate of 120, normotensive and in room air. Work-up in the labs shows lipase was elevated to 600. CT abdomen was consistent with pancreatitis. Physical exam Constitutional: Pleasant male in no acute distress, sitting up at the end of the bed. Head: Normocephalic, Atraumatic Eyes: PERRL, conjunctivae normal, anicteric sclerae ENMT: external ear and nose normal, oropharynx normal Neck: trachea midline, no thyromegaly normal visual inspection Respiratory: normal respiratory effort, lungs clear to auscultation, no wheeze, rales, rhonchi. Normal insp/exp effort, no accessory muscle use Cardiovascular: Irregular, no murmur, no edema Vessels: no JVD or carotid bruit Chest: normal inspection of chest Abdomen: Tenderness in the epigastric region present, no guarding or rigidity Musculoskeletal: no cyanosis or clubbing, extremities motor strength 5/5 Skin: no rashes, warm and dry normal turgor Neurologic: PERRL, EOMI, accommodation nl, no face palsy, no dysarthria CN's II- XI intact bilaterally and moves all extremities Psychiatric: A+Ox3, euthymic affect : deferred Assessment/plan Acute pancreatitis: Abdomen pain for last 3 days. No clear cause; nonalcoholic. CT abdomen remarkable for cholelithiasis. Will obtain right upper quadrant ultrasound, lipid panel start gentle hydration with LR at 125 cc/h, and start clear liquid diet. We will hold his Lasix which can potentially cause acute pancreatitis. A. fib with RVR; ventricular rate in range of 120s. We will continue his home metoprolol and continue his warfarin COVID-19asymptomatic; continue to monitor. Type 2 diabetes mellitusstarted on insulin as per pharmacy. Hypothyroidismcontinued levothyroxine Hyperlipidemiacontinue rosuvastatin
[2021-12-13] MEDS ORDERED: GLUCAGON FOR INJ 1 MG VIAL IM PRN (17:15)
[2021-12-13] MEDS ORDERED: GLUCOSE 40% GEL 15 GM TUBE PO PRN (17:15)
[2021-12-13] MEDS ORDERED: GLUCOSE 10 TAB/TUBE PO PRN (17:15)
[2021-12-13] MEDS ORDERED: DEXTROSE 50% 50 ML SYRINGE IV PRN (17:15)
[2021-12-13] MEDS ORDERED: CARBOHYDRATES FOR HYPOGLYCEMIA PO PRN (17:15)
[2021-12-13] MEDS ORDERED: METOPROLOL TARTRATE 1 MG/ML VIAL IV PRN (17:19)
[2021-12-13 17:33] LABS: C Reactive Protein 17.04 mg/dl (0-0.5); Chol HDL Ratio 3.6 (0-5)
[2021-12-13] MEDS ORDERED: INSULIN ASPART PER UNIT SC SCH (18:00)
[2021-12-13] MEDS ORDERED: ONDANSETRON INJ 2 MG/ML 2 ML VIAL IV PRN (18:39)
[2021-12-13] MEDS ORDERED: ACETAMINOPHEN 325 MG TAB PO PRN (18:39)
[2021-12-13] MEDS ORDERED: HYDROmorphone INJ 0.5 MG/0.5 ML SYR IV PRN (18:39)
[2021-12-13] MEDS ORDERED: PNEUMOCOCCAL POLYSACCHARIDES 25 MCG/0.5 ML VIAL/SYR IM ONE (18:53)
[2021-12-13] MEDS ORDERED: WARFARIN SOD 10 MG TAB PO SCH (19:30)
[2021-12-13] MEDS: INSULIN ASPART PER UNIT SC SCH ×2 (19:39→20:11)
[2021-12-13] MEDS: METOPROLOL SUCC 50MG EXT REL TAB PO SCH (20:14)
[2021-12-13] MEDS ORDERED: LANTUS PER UNIT CHARGE SQ ONE (21:00)
[2021-12-14] MEDS: SODIUM CHLORIDE 0.9% 1000ML 1,000 ML IV SCH (03:28)
[2021-12-14] MEDS: INSULIN ASPART PER UNIT SC SCH ×3 (03:55→09:33)
[2021-12-14] MEDS ORDERED: LEVOTHYROXINE SODIUM 150 MCG TABLET PO SCH (06:30)
[2021-12-14 06:39] LABS: Hematocrit (blood only) 34.9 % (40.1-51.0); Hemoglobin 12.4 g/dl (14.0-18.0); Mean Corpuscular Hemoglobin 33.3 pg (25.0-34.0); Mean Corpuscular Hgb Conc 35.5 g/dL (32.0-36.0); Mean Corpuscular Volume 93.8 fL (80.0-100.0); Mean Platelet Volume 11.3 fL (9.4-12.4); Platelet Count 149 K/uL (130-400); RDW Coefficient of Variation 12.8 % (11.5-14.5); Red Blood Count 3.72 M/uL (4.63-6.08); White Blood Count 7.78 K/ul (4.8-10.8)
[2021-12-14 07:13] LABS: BUN Creatinine Ratio 13.5 (10-20); Calcium 8.2 mg/dl (8.5-10.1); Chol HDL Ratio 3.6 (0-5); Creatinine Clr Calc Pharmacy 115.8 ml/min; Est GFR (African American) 103.8 ml/min; Est GFR (Non-African American) 89.6 ml/min; Potassium 3.6 mmol/L (3.5-5.1)
--- NOTE | 2021-12-14 07:25 | Electrocardiogram Report ---
Test Reason : Blood Pressure : / mmHG Vent. Rate : 126 BPM Atrial Rate : 144 BPM P-R Int : 000 ms QRS Dur : 098 ms QT Int : 324 ms P-R-T Axes : 000 -31 093 degrees QTc Int : 469 ms Atrial fibrillation with rapid ventricular response Left axis deviation Minimal voltage criteria for LVH, may be normal variant Nonspecific ST and T wave abnormality Poor R wave progression, consider anterior DC vs. lead placement vs. LVH Abnormal ECG When compared with ECG of 05-MAR-2019 09:26, No significant change was found Confirmed by Judah Brownlee ([id number]) on 12/14/2021 7:25:26 AM Referred By: Confirmed By:Yury Brownlee
[2021-12-14 08:03] LABS: Estimated Average Glucose 243 mg/dl; Hemoglobin A1C 10.1 % (4.5-5.6)
--- NOTE | 2021-12-14 08:39 | Ultrasound Report ---
US liver CLINICAL HISTORY: Pancreatitis. Evaluate gallbladder. COMPARISON STUDY: CT of the abdomen and pelvis December 13, 2021. FINDINGS: Hepatic echogenicity is increased. This represents hepatic steatosis. Areas of fatty sparin g within the gallbladder fossa are noted. There is no biliary ductal dilatation. Common bile duct heron sures 5 mm in caliber. 4 mm gallstone is noted within the gallbladder. No evidence for acute cholecys titis. No gallbladder wall thickening. Pancreas appears edematous. Pancreatic tail is obscured. No pe ripancreatic fluid collection is identified. There is no right hydronephrosis. IMPRESSION: 1. 4 mm gallstone within the gallbladder. No evidence for acute cholecystitis. 2. Edematous gallbladder consistent with acute pancreatitis, better depicted on CT of December 13 22. No peripancreatic fluid collection. Pancreatic tail obscured. 3. Hepatic steatosis. 4. No biliary ductal dilatation. ACT 112: Negative or not required by law. Electronically signed by: Cas Schumacher M.D. 12/14/2021 8:38 AM
[2021-12-14] MEDS ORDERED: ROSUVASTATIN CALCIUM 5 MG TAB PO SCH (09:00)
[2021-12-14] MEDS ORDERED: ASPIRIN 81 MG ECTAB PO SCH (09:00)
[2021-12-14 09:07] LABS: INR 2.5 (0.9-1.1); Prothrombin Time 25.1 Seconds (9.0-12.0)
[2021-12-14] MEDS: METOPROLOL SUCC 50MG EXT REL TAB PO SCH (09:24)
--- NOTE | 2021-12-14 15:45 | Discharge Summary ---
Date of Service December 14, 2021 Admission HPI Per Admitting Provider This is a 76-year-old male with PMH of type 2 diabetes, hypothyroidism, obstructive sleep apnea, pacemaker, hypertension, CAD s/p stent and other medical problems listed below who presents with abdominal pain x 4 days. Pain is in lower stomach and is made worse with deep breaths. Also endorsing pain in mid back that radiates forward. Has had liquid stool for past 4 days was concerned he had a bowel obstruction due to bloating and abdomen, so he has been taking milk of magnesia. Denies any nausea or vomiting. Was seen in clinic on 11/30/2021 with viral symptoms and treated with 7-day course of doxycycline. Was not tested for COVID at that time. Since then, fever, chills, cough and congestion have subsided. Denies any shortness of breath. States that he took all morning medications today. Is no longer taking losartan and has not been taking Lasix due to no lower leg swelling. Denies any headache, chest pain, palpitations, wheezing, dysuria or constipation. Admission Exam Per Admitting Provider Constitutional: Pleasant male in no acute distress, sitting up at the end of the bed. Head: Normocephalic, Atraumatic Eyes: PERRL, conjunctivae normal, anicteric sclerae ENMT: external ear and nose normal, oropharynx normal Neck: trachea midline, no thyromegaly normal visual inspection Respiratory: normal respiratory effort, lungs clear to auscultation, no wheeze, rales, rhonchi. Normal insp/exp effort, no accessory muscle use Cardiovascular: Irregular, no murmur, no edema Vessels: no JVD or carotid bruit Chest: normal inspection of chest Abdomen: Tenderness in the epigastric region present, no guarding or rigidity Musculoskeletal: no cyanosis or clubbing, extremities motor strength 5/5 Skin: no rashes, warm and dry normal turgor Neurologic: PERRL, EOMI, accommodation nl, no face palsy, no dysarthria CN's II- XI intact bilaterally and moves all extremities Psychiatric: A+Ox3, euthymic affect : deferred Principal Diagnosis Acute pancreatitis A. fib with RVR; COVID-19 Type 2 diabetes mellitus. Hypothyroidism Hyperlipidemia Discharge Exam Constitutional: Pleasant male in no acute distress, sitting up on the bed Head: Normocephalic, Atraumatic Eyes: PERRL, conjunctivae normal, anicteric sclerae ENMT: external ear and nose normal, oropharynx normal Neck: trachea midline, no thyromegaly normal visual inspection Respiratory: normal respiratory effort, lungs clear to auscultation, no wheeze, rales, rhonchi. Normal insp/exp effort, no accessory muscle use Cardiovascular: Irregular, no murmur, no edema Vessels: no JVD or carotid bruit Chest: normal inspection of chest Abdomen: Nontender, soft, bowel sound present Musculoskeletal: no cyanosis or clubbing, extremities motor strength 5/5 Skin: no rashes, warm and dry normal turgor Neurologic: PERRL, EOMI, accommodation nl, no face palsy, no dysarthria CN's II- XI intact bilaterally and moves all extremities Psychiatric: A+Ox3, euthymic affect : deferred Discharge Data Allergies Allergy/AdvReac Type Severity Reaction Status Date / Time pollen extracts Allergy Intermediate SNEEZING, Verified 12/13/21 16:03 CONGESTION glipizide AdvReac Intermediate gi upset Verified 12/13/21 16:03 Consultations 12/13/21 15:58 ED Decision to Admit Stat Ordered Studies 12/13/21 13:46 CT abd pelvis IV con only Stat 12/14/21 US liver Urgent Hospital Course (1) Pancreatitis: (2) COVID-19: (3) Chronic atrial fibrillation: (4) Diabetes mellitus, type II: (5) Hypothyroidism: Plan Patient is a 76-year-old male with past medical history of hypertension, A. fib on metoprolol/warfarin, diabetes on metformin presents to the hospital with complaint of abdominal pain for 3 days. Patient noticed that the he started to develop abdominal pain about 3 days ago which was radiating to his back. He was also feeling weak since last few days as well. He denies fevers, chills, nausea, vomiting, chest pain or shortness of breath. Patient denies any history of alcohol abuse or smoking. On arrival to the ED, patient was in A. fib with ventricle rate of 120, normotensive and in room air. Work-up in the labs shows lipase was elevated to 600. CT abdomen was consistent with pancreatitis. He was also found to be covid 19 positive. Patient was admitted to telemetry floor. Patient was started on IV fluids and pain control. Overnight, patient's abdominal pain subsided. He was able to tolerate clear liquid diet and low-fat diet. Right upper quadrant ultrasound was done which did not show any biliary dilation. Lipid panel did not show a hypertriglyceridemia. His pancreatitis is most likely secondary to COVID-19 infection or use of furosemide. Patient was asked to hold off on furosemide on discharge. He was asked to continue on low- fat diet for 1 more week. He was also asked to abstain from alcohol. Patient was instructed to follow-up with his primary care doctor. Prescription for Tylenol and tramadol for pain control was sent to the pharmacy. Code 44 protocol followed. Total Time Total Time Spent Total Time Spent (In Minutes): 35 Total Time Includes: Examination of the Patient, Discharge Planning, Medication Reconciliation, Communication With Other Providers and Other Discharge Plan Discharge Items Patient Disposition: Home - Self-Care Reason For Visit: PANCREATITIS,COVID,AFIB WITH RVR Discharge Diagnosis: 1) Covid 19 infection 2) Acute Pancreatitis 3) A.fib with RVR Activity: Resume your previous activity Non-emergency contact: Primary Care Provider Call non-emergency contact if: your symptoms worsen Follow-up/Referrals: Darren Santos MD [Primary Care Provider] - Diet: Low Fat Addtl Attending Provider Instructions: You were admitted to the hospital with COVID-19 infection and acute pancreatitis. Please follow the following instructions: 1) Please eat low-fat diet for 1 week. Avoid greasy and fried food. Eat low fat dairy. 2) Hold Furosemide for one week. Hydrate yourself with water. 3) You are prescribed painkillers. Take Tylenol as need for mild pain(Scale 1 to 6). Take Tramadol as need for severe pain( Scale 7-10) Please see your PCP as soon as possible. Pending Studies at Discharge: No Stand-Alone Forms: [employer], Smoking Cessation Medications and DC Order Prescriptions: New acetaminophen 325 mg Tablet 650 mg PO Q4H PRN (Reason: pain) Qty: 30 0RF tramadol 50 mg tablet 50 mg PO Q8H PRN (Reason: pain (scale score 7-10)) Qty: 10 0RF Continued rosuvastatin 5 mg Tablet 5 mg PO WK Rx Instructions: TAKES ON MONDAYS. aspirin [Vinny Low Dose Aspirin] 81 mg Tablet,Delayed Release (Dr/Ec) 81 mg PO DAILY metoprolol succinate 100 mg Tablet Extended Release 24 Hr 150 mg PO BID nitroglycerin 0.4 mg Tablet, Sublingual 0.4 mg sublingual DIRECTED PRN (Reason: Chest Pain) metformin 1,000 mg tablet 1,000 mg PO BID warfarin 5 mg tablet See Rx Instructions .ROUTE .COMPLEX Rx Instructions: 5 mg; TAKES 5 MG ON WEDNESDAYS & TUESDAY EVENINGS, THEN 10 MG ON TUE, TUE, , , & TUE EVENINGS levothyroxine 150 mcg tablet 150 mcg PO DAILYBB furosemide [Lasix] 20 mg Tablet 20 mg PO DAILY PRN (Reason: Fluid Retention) potassium chloride 10 mEq tablet,ER particles/crystals 10 meq PO DAILY PRN (Reason: TAKES WHEN USES LASIX.) Discharge Orders: Discharge Order (Routine); Ordered 12/14/21 Ordered By: Pa Gupta Admission Data Admit Date/Time: 12/13/21 16:48 Attending Provider: Pa Gupta Admit Provider: Pa Gupta Primary Care Provider: Darren Santos Other Providers: Bry Bejarano Other Interventions: Discharge Summary Assessment (RN) Last Done: 12/14/21 10:54 Supervising Physician Co-Signing Physician Notes Patient independently seen and agrees above documentation by Rosemary Ybarra. Patient is a 76-year-old male with past medical history of hypertension, A. fib on metoprolol/warfarin, diabetes on metformin presents to the hospital with complaint of abdominal pain for 3 days. Patient noticed that the he started to develop abdominal pain about 3 days ago which was radiating to his back. He was also feeling weak since last few days as well. He denies fevers, chills, nausea, vomiting, chest pain or shortness of breath. Patient denies any history of alcohol abuse or smoking. On arrival to the ED, patient was in A. fib with ventricle rate of 120, normotensive and in room air. Work-up in the labs shows lipase was elevated to 600. CT abdomen was consistent with pancreatitis. He was also found to be covid 19 positive. Physical exam Constitutional: Pleasant male in no acute distress, sitting up at the end of the bed. Head: Normocephalic, Atraumatic Eyes: PERRL, conjunctivae normal, anicteric sclerae ENMT: external ear and nose normal, oropharynx normal Neck: trachea midline, no thyromegaly normal visual inspection Respiratory: normal respiratory effort, lungs clear to auscultation, no wheeze, rales, rhonchi. Normal insp/exp effort, no accessory muscle use Cardiovascular: Irregular, no murmur, no edema Vessels: no JVD or carotid bruit Chest: normal inspection of chest Abdomen: Tenderness in the epigastric region present, no guarding or rigidity Musculoskeletal: no cyanosis or clubbing, extremities motor strength 5/5 Skin: no rashes, warm and dry normal turgor Neurologic: PERRL, EOMI, accommodation nl, no face palsy, no dysarthria CN's II- XI intact bilaterally and moves all extremities Psychiatric: A+Ox3, euthymic affect : deferred Assessment/plan Acute pancreatitis: Abdomen pain for last 3 days. No clear cause; nonalcoholic. CT abdomen remarkable for cholelithiasis. Will obtain right upper quadrant ultrasound, lipid panel start gentle hydration with LR at 125 cc/h, and start clear liquid diet. We will hold his Lasix which can potentially cause acute rodgers creatitis. A. fib with RVR; ventricular rate in range of 120s. We will continue his home metoprolol and continue his warfarin COVID-19asymptomatic; continue to monitor. Type 2 diabetes mellitusstarted on insulin as per pharmacy. Hypothyroidismcontinued levothyroxine Hyperlipidemiacontinue rosuvastatin
--- NOTE | 2021-12-14 17:25 | Communication Note ---
Date of Service: December 14, 2021 Code 44 attestation: 76 years old male was admitted with acute pancreatitis without significant hemodynamic instability and the condition improved as of today. He was evaluated and discharged home by the attending physician any stable medical condition. By CMS guidelines, a determination that the admission or continued stay is not medically necessary has been made by a member of the UR committee and a physician for this hospital stay, therefore a Code 44 will be completed and the Inpatient admission will be changed to outpatient. Dr Duane Bejarano Member UR Committee
[2021-12-16] MEDS ORDERED: WARFARIN SOD 5 MG TAB PO SCH (16:00)
== END 2021-12-14 12:12 | disposition home or self-care (01) | DRG 438 ==
LOC: ED 12:55 → INTOOBSV 16:48 → 2E 16:48 → OBSVTOIN 16:48 → 2E 18:12

== ENCOUNTER 2023-01-22 14:14 | Inpatient (IN) ==
[~2023-01-22 14:14] MED LIST changes: +AMIODARONE 150MG / 100ML D5W IV ONE; -GLC850 PO; -JNV100 PO; -LEVO137T3 PO; -LNX125 PO; -NITR0.4S UT; -ROSU5TAB9 PO; -TPRSR/100 PO; -WARF-246 PO
[2023-01-22] MEDS: AMIODARONE 360MG / 200ML D5W IV ONE ×2 (14:29→14:43)
[2023-01-22] MEDS ORDERED: STAT IV Infusion **Titration per Protocol STA (14:43)
[2023-01-22] MEDS ORDERED: AMIODARONE IV BOLUS & DRIP IV STA (14:43)
[2023-01-22] MEDS ORDERED: 0.2 MICRON FILTER SET 1 EACH IV STA (14:43)
[2023-01-22] MEDS ORDERED: AMIODARONE / D5W 150 MG/100 ML BAG IV STA (14:43)
[2023-01-22] MEDS ORDERED: AMIODARONE / D5W 360 MG/200 ML BAG IV ONE (14:53)
[2023-01-22 15:06] LABS: Hematocrit (blood only) 36.2 % (42.0-52.0); Hemoglobin 12.5 g/dl (14.0-18.0); Mean Corpuscular Hemoglobin 33.8 pg (25.0-34.0); Mean Corpuscular Hgb Conc 34.5 g/dL (32.0-36.0); Mean Corpuscular Volume 97.8 fL (80.0-100.0); Mean Platelet Volume 11.4 fL (9.4-12.4); Platelet Count 144 K/uL (130-400); RDW Coefficient of Variation 13.1 % (11.5-14.5); RDW Standard Deviation 47.7 fL (36.4-46.3); White Blood Count 13.73 K/ul (4.8-10.8)
[2023-01-22 15:10] LABS: Albumin Globulin Ratio 1.1 (0.9-2); BUN Creatinine Ratio 13.8 (10-20); Bilirubin,Total 0.9 mg/dl (0.2-1.0); Calcium 8.6 mg/dl (8.6-10.3); Creatinine Clr Calc Pharmacy 95.7 ml/min; Est GFR (African American) 90.3 ml/min; Est GFR (Non-African American) 77.9 ml/min; Globulin 3.6 gm/dl (2.5-4.0); Potassium 3.4 mmol/L (3.5-5.1); Total Protein 7.6 gm/dl (6.0-8.3)
--- NOTE | 2023-01-22 15:16 | XRay Report ---
XR chest 1V not portable CLINICAL HISTORY: Chest pain, nonspecific TECHNIQUE: Single frontal radiograph of the chest was obtained. Comparison: Comparison is made to chest radiograph 03/05/2019 FINDINGS: Lines and tubes are stable. Cardiomegaly is noted. Prominence and cephalization of the vasculature is seen. Airspace opacities are seen predominantly in the left lung. No evidence of pleural effusion or pneumothorax. IMPRESSION: 1. Cardiomegaly and mild pulmonary edema. 2. Multifocal airspace opacities which may represent pneumonia, less likely alveolar edema. ACT 112: Negative or not required by law. Electronically signed by: Jose Cotto M.D. 01/22/2023 3:13 PM
[2023-01-22 15:17] LABS: Troponin I High Sensitivity 9.5 pg/ml (0-20)
[2023-01-22 15:23] LABS: Basophils # (auto) 0.03 K/uL (0.00-0.20); Basophils % (auto) 0.2 %; Immature Granulocytes # (auto) 0.08 K/uL (0.01-0.20); Immature Granulocytes % (auto) 0.6 %; Lymphocytes # (auto) 0.74 K/uL (1.20-3.40); Lymphocytes % (auto) 5.4 %; Monocytes # (auto) 0.49 K/uL (0.11-0.59); Monocytes % (auto) 3.6 %; Neutrophils # (auto) 12.39 K/uL (1.40-6.50); Neutrophils % (auto) 90.2 %; Polychromasia 1+
[2023-01-22 15:30] LABS: INR 2.6 (0.9-1.1); Partial Thromboplastin Ratio 1.1; Partial Thromboplastin Time 31.8 Seconds (21.0-31.0); Prothrombin Time 27.2 Seconds (9.0-12.0)
[2023-01-22 15:35] LABS: D Dimer 1220 ug/L FEU (0-500)
--- NOTE | 2023-01-22 15:40 | Emergency Department Note ---
Impression & Plan NSVT (nonsustained ventricular tachycardia), Acute on chronic HFrEF (heart failure with reduced ejection fraction) ED Provider Note NAME: SHIRA CUETO AGE: 77 SEX: M ARRIVES VIA: Ambulance INFORMANT: Patient, ED PROVIDER(S): Nitesh Villeda MD CHIEF COMPLAINT: PLAN: Disposition: Admission Condition: Fair Outpatient prescription management: None MEDICAL DECISION MAKING: This is a 77-year-old male with history of CAD, hypertension, status post pacemaker, diabetes, hypothyroidism, previous [place] presenting for nausea and vomiting. Patient initially had runs of NSVT, given amiodarone while in department here. Bedside echocardiogram revealed preserved EF however limited rest of exam due to body habitus. Overall patient appears fatigued, acutely ill. We will get chest x-ray, basic blood work, CT abdomen/pelvis for patient's abdominal pain and nausea/vomiting. We will get D-dimer, troponin, EKG. Patient EKG does not appear to be consistent with a STEMI. Overall he appears to have either pneumonia versus fluid overload as he does have pleural effusions on chest x-ray as well as possible opacities. In addition he is quite oxygen at this time. Patient received IV amiodarone upon arrival to prevent any episodes of NSVT. CT imaging reveals no life-threatening abnormality at this time. Patient admitted to hospital service for runs of NSVT, confusion, CHF, pneumonia and oxygen requirement Triage Nursing notes reviewed and agree them. Son who states that he is not using his fatigue, this began this morning. Has never had this happen before. Prior medical records reviewed Vital Signs: reviewed and remarkable for no significant abnormalities Differential diagnosis: ACS, PE, pneumonia, infection, dissection, V. tach ER treatment provided: IV amiodarone, oxygen Diagnostics interpreted by me: ECG: ECG reviewed by me with atrial fibrillation, left axis deviation, normal [place], QRS 102, normal QTc, no ST segment elevations consistent with STEMI criteria, occasional PVC Cardiac Monitoring: Atrial fibrillation at a rate of 92 Laboratory studies: See below Imaging studies: See below Consultation(s): None HPI: 77/M arrives for evaluation of nausea/vomiting. Patient has a history of hypertension, CAD status post pacemaker, diabetes, hypothyroidism, previous [place] presenting for nausea/vomiting. Patient was initial called EMS for nausea/vomiting. Upon arrival of EMS, they had EKG that was initially in sinus rhythm. They noted PVCs initially which progressed into longer longer runs of PVCs. Eventually this became nonsustained V. tach. Upon arrival here patient no longer has runs of NSVT. He has occasional PVCs. He does appear fatigued. Today with him that he is nauseous with vomiting and has had no chest pain or shortness of breath. His son does mention that he has never usually this fatigue. Unclear if this ever happened before. ROS: See above HPI for pertinent positives & negatives. A total of 10 systems reviewed and were otherwise negative. PAST MEDICAL HISTORY:See Below PAST SURGICAL HISTORY:See Below FAMILY HISTORY:See Below SOCIAL HISTORY:See Below HOME MEDICATIONS:See Below ALLERGIES:See Below VITALS:See Below PHYSICAL EXAMINATION: General: Fatigued but easily arousable Head: Normocephalic and atraumatic Eyes: Normal inspection, extraocular muscles intact, no conjunctival pallor Ear, nose, throat: Normal external exam Neck: Normal range of motion Respiratory: Patient is in no respiratory distress, rhonchi in all lung coyne Cardiovascular: RRR without murmur appreciated GI: Soft, nontender, no guarding Extremities: pulses intact with good cap refills Neuro: Patient awake, alert, no focal deficits Skin: Warm, dry, and intact ED COURSE: Times/Reassessments: Upon reassessment after IV amiodarone, patient had progressively less PVCs. Secondary assessment, 15 minutes later, patient hypoxic, oxygen applied. 15 minutes later, patient continues to moan but is answering questions but appears fatigued. Procedures: None PDMP: Reviewed and no issues Critical Care Note: I have personally spent 36 minutes of critical care time in the direct management of this patient. This includes bedside care, interpretation of diagnostic studies, and testing, discussion with consultants, patient, and family members, and other required patient management activities. This 36 minutes is in excess of all separately billable procedures. None Nitesh Villeda MD Past Med/Surg History Medical History (Updated 01/23/23 @ 08:53 by Nitesh Villeda MD) Atrial fibrillation CAD (coronary artery disease) Diabetes mellitus, type II History of WA (myocardial infarction) HTN (hypertension) Hypothyroidism ASHLEY (obstructive sleep apnea) intolerant to cpap Tachy-mirtha syndrome Surgical History History of heart artery stent Inguinal hernia s/p repair S/P placement of cardiac pacemaker S/P tonsillectomy and adenoidectomy Family History Other Diabetes Heart disease Social History Smoking Status: Former smoker Hx Alcohol Use: No Hx Substance Use: No Preferred Language: Mauritian Communication Ability: Effective Print 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 Worker Required: No Beliefs That Will Affect Care: None Current Living Situation: Spouse Current Living Situation Comment: Lives at home with Feels Safe at Home: Yes Safety Concerns: Feels Safe At This Time Assistive Devices: Denture - Upper and Glasses Assistive Devices Comment: Reading glasses Allergies Allergies Allergy/AdvReac Type Severity Reaction Status Date / Time pollen extracts Allergy Intermediate SNEEZING, Verified 01/22/23 16:39 CONGESTION glipizide AdvReac Intermediate gi upset Verified 01/22/23 16:39 Home Meds Home Medications Medication Instructions Recorded Confirmed aspirin 81 mg tablet,delayed 81 mg PO DAILY 03/05/19 01/22/23 release (Vinny Low Dose Aspirin) metoprolol succinate 100 mg 150 mg PO BID 03/05/19 01/22/23 tablet,extended release 24 hr nitroglycerin 0.4 mg sublingual 0.4 mg sublingual DIRECTED PRN 03/05/19 01/22/23 tablet Chest Pain furosemide 20 mg tablet (Lasix) 20 mg PO DAILY PRN Fluid Retention 12/13/21 01/22/23 levothyroxine 150 mcg tablet 150 mcg PO DAILYBB 12/13/21 01/22/23 metformin 1,000 mg tablet 1,000 mg PO BID 12/13/21 01/22/23 potassium chloride 10 mEq 10 meq PO DAILY PRN TAKES WHEN 12/13/21 01/22/23 tablet,extended release(part/cryst) USES LASIX. warfarin 5 mg tablet See Rx Instructions .Route .COMPLEX 12/13/21 01/22/23 Results & Data (ED) Vital Signs Vital Signs - 24 hr 01/22/23 14:19 01/22/23 14:28 01/22/23 14:19 Temperature 37.4 C Temperature Source Oral Pulse Rate 102 H 109 H Pulse Rate [Apical] Pulse Rate from SpO2 Sensor Respiratory Rate 14 Respiratory Depth Normal Blood Pressure 131/70 Blood Pressure [Left Arm] Blood Pressure Mean 90 Blood Pressure Mean [Left Arm] Blood Pressure Position [Left Arm] Pulse Oximetry 93 92 Oxygen Delivery Method Room Air Nasal Cannula Oxygen Flow Rate 0 Sepsis Recent Fever Within 48 Hours Yes Sepsis New/Unexplained Change in Mental Status N/A Sepsis Action Taken by Nursing No Action Required Oxygen Flow Rate - Titration 2 Pulse Oximetry Post Tiitration 94 01/22/23 14:18 01/22/23 14:24 01/22/23 14:24 Temperature Temperature Source Pulse Rate 91 H 97 H Pulse Rate [Apical] Pulse Rate from SpO2 Sensor 95 H 100 H Respiratory Rate 19 21 Respiratory Depth Blood Pressure 131/70 Blood Pressure [Left Arm] Blood Pressure Mean 96 Blood Pressure Mean [Left Arm] Blood Pressure Position [Left Arm] Pulse Oximetry 93 91 Oxygen Delivery Method Oxygen Flow Rate Sepsis Recent Fever Within 48 Hours Sepsis New/Unexplained Change in Mental Status Sepsis Action Taken by Nursing Oxygen Flow Rate - Titration Pulse Oximetry Post Tiitration 01/22/23 14:30 01/22/23 14:30 01/22/23 14:48 Temperature Temperature Source Pulse Rate 92 H Pulse Rate [Apical] Pulse Rate from SpO2 Sensor 98 H Respiratory Rate 19 Respiratory Depth Blood Pressure 123/65 Blood Pressure [Left Arm] Blood Pressure Mean 79 Blood Pressure Mean [Left Arm] Blood Pressure Position [Left Arm] Pulse Oximetry 93 97 Oxygen Delivery Method Nasal Cannula Oxygen Flow Rate 2 Sepsis Recent Fever Within 48 Hours Sepsis New/Unexplained Change in Mental Status Sepsis Action Taken by Nursing Oxygen Flow Rate - Titration Pulse Oximetry Post Tiitration 01/22/23 14:48 01/22/23 14:45 01/22/23 15:00 Temperature Temperature Source Pulse Rate 94 H Pulse Rate [Apical] Pulse Rate from SpO2 Sensor 95 H Respiratory Rate 15 Respiratory Depth Blood Pressure 146/90 H Blood Pressure [Left Arm] Blood Pressure Mean 90 Blood Pressure Mean [Left Arm] Blood Pressure Position [Left Arm] Pulse Oximetry 97 95 Oxygen Delivery Method Nasal Cannula Oxygen Flow Rate 2 Sepsis Recent Fever Within 48 Hours Sepsis New/Unexplained Change in Mental Status Sepsis Action Taken by Nursing Oxygen Flow Rate - Titration Pulse Oximetry Post Tiitration 01/22/23 15:00 01/22/23 15:14 01/22/23 15:14 Temperature Temperature Source Pulse Rate 81 Pulse Rate [Apical] 97 H Pulse Rate from SpO2 Sensor 84 Respiratory Rate 19 17 Respiratory Depth Blood Pressure 141/72 H Blood Pressure [Left Arm] 141/72 H Blood Pressure Mean 90 Blood Pressure Mean [Left Arm] 95 Blood Pressure Position [Left Arm] Pulse Oximetry 96 97 Oxygen Delivery Method Room Air Oxygen Flow Rate Sepsis Recent Fever Within 48 Hours Sepsis New/Unexplained Change in Mental Status Sepsis Action Taken by Nursing Oxygen Flow Rate - Titration Pulse Oximetry Post Tiitration 01/22/23 15:14 01/22/23 15:15 01/22/23 15:15 Temperature Temperature Source Pulse Rate 91 H 88 Pulse Rate [Apical] Pulse Rate from SpO2 Sensor 95 H 100 H Respiratory Rate 16 17 Respiratory Depth Blood Pressure 139/80 Blood Pressure [Left Arm] Blood Pressure Mean 95 Blood Pressure Mean [Left Arm] Blood Pressure Position [Left Arm] Pulse Oximetry 97 96 Oxygen Delivery Method Oxygen Flow Rate Sepsis Recent Fever Within 48 Hours Sepsis New/Unexplained Change in Mental Status Sepsis Action Taken by Nursing Oxygen Flow Rate - Titration Pulse Oximetry Post Tiitration 01/22/23 15:53 01/22/23 15:56 01/22/23 15:56 Temperature Temperature Source Pulse Rate 98 H Pulse Rate [Apical] Pulse Rate from SpO2 Sensor 94 H 96 H Respiratory Rate 17 Respiratory Depth Blood Pressure 132/92 Blood Pressure [Left Arm] Blood Pressure Mean 96 Blood Pressure Mean [Left Arm] Blood Pressure Position [Left Arm] Pulse Oximetry 99 98 Oxygen Delivery Method Oxygen Flow Rate Sepsis Recent Fever Within 48 Hours Sepsis New/Unexplained Change in Mental Status Sepsis Action Taken by Nursing Oxygen Flow Rate - Titration Pulse Oximetry Post Tiitration 01/22/23 16:00 01/22/23 16:00 01/22/23 16:46 Temperature Temperature Source Pulse Rate 95 H Pulse Rate [Apical] Pulse Rate from SpO2 Sensor 97 H Respiratory Rate 20 Respiratory Depth Blood Pressure 119/89 Blood Pressure [Left Arm] 129/93 Blood Pressure Mean 94 Blood Pressure Mean [Left Arm] 105 Blood Pressure Position [Left Arm] Semi-fowlers Pulse Oximetry 97 Oxygen Delivery Method Oxygen Flow Rate Sepsis Recent Fever Within 48 Hours Sepsis New/Unexplained Change in Mental Status Sepsis Action Taken by Nursing Oxygen Flow Rate - Titration Pulse Oximetry Post Tiitration Laboratory Data 01/22/23 14:40 01/22/23 14:40 Lab Results 01/22/23 01/22/23 01/22/23 Range/Units 14:24 14:27 14:40 WBC (4.8-10.8) K/ul RBC (4.70-6.10) M/uL Hgb (14.0-18.0) g/dl Hct (42.0-52.0) % MCV (80.0-100.0) fL MCH (25.0-34.0) pg MCHC (32.0-36.0) g/dL RDW Std Deviation (36.4-46.3) fL RDW Coeff of Carson (11.5-14.5) % Plt Count (130-400) K/uL MPV (9.4-12.4) fL Immature Gran % (Auto) % Neut % (Auto) % Lymph % (Auto) % [place] % (Auto) % Eos % (Auto) % Baso % (Auto) % Neut # (Auto) (1.40-6.50) K/uL Lymph # (Auto) (1.20-3.40) K/uL [place] # (Auto) (0.11-0.59) K/uL Eos # (Auto) (0.00-0.50) K/uL Baso # (Auto) (0.00-0.20) K/uL Immature Gran # (Auto) (0.01-0.20) K/uL Polychromasia PT (9.0-12.0) Seconds INR (0.9-1.1) APTT (21.0-31.0) Seconds PTT Ratio D-Dimer (0-500) ug/L FEU Sodium (136-145) mmol/L Potassium (3.5-5.1) mmol/L Chloride (98-107) mmol/L Carbon Dioxide (21-32) mmol/L Anion Gap (3-11) BUN (6-23) mg/dl Creatinine (0.6-1.4) mg/dl Est Cr Clr Drug Dosing ml/min Est GFR ( Amer) ml/min Est GFR (Non-Af Amer) ml/min BUN/Creatinine Ratio (10-20) Glucose (70-99(Fasting)) mg/dl POC Glucose 168 H (70-99) mg/dl Lactate 3.0 H* (0.4-2.0) mmol/L Calcium (8.6-10.3) mg/dl Magnesium (1.7-2.4) mg/dl Total Bilirubin (0.2-1.0) mg/dl AST (13-39) U/L ALT (7-52) U/L Alkaline Phosphatase (34-104) U/L Troponin I High Sens (0-20) pg/ml B-Natriuretic Peptide 253 H (0-100) pg/ml Total Protein (6.0-8.3) gm/dl Albumin (3.4-5.0) gm/dl Globulin (2.5-4.0) gm/dl Albumin/Globulin Ratio (0.9-2) SARS-CoV-2 (PCR) (Negative) Influenza Type A (PCR) (Neg) Influenza Type B (PCR) (Neg) RSV (RT-PCR) (Neg) 01/22/23 01/22/23 01/22/23 Range/Units 14:40 14:40 14:40 WBC 13.73 H (4.8-10.8) K/ul RBC 3.70 L (4.70-6.10) M/uL Hgb 12.5 L (14.0-18.0) g/dl Hct 36.2 L (42.0-52.0) % MCV 97.8 (80.0-100.0) fL MCH 33.8 (25.0-34.0) pg MCHC 34.5 (32.0-36.0) g/dL RDW Std Deviation 47.7 H (36.4-46.3) fL RDW Coeff of Carson 13.1 (11.5-14.5) % Plt Count 144 (130-400) K/uL MPV 11.4 (9.4-12.4) fL Immature Gran % (Auto) 0.6 % Neut % (Auto) 90.2 % Lymph % (Auto) 5.4 % [place] % (Auto) 3.6 % Eos % (Auto) 0.0 % Baso % (Auto) 0.2 % Neut # (Auto) 12.39 H (1.40-6.50) K/uL Lymph # (Auto) 0.74 L (1.20-3.40) K/uL [place] # (Auto) 0.49 (0.11-0.59) K/uL Eos # (Auto) 0.00 (0.00-0.50) K/uL Baso # (Auto) 0.03 (0.00-0.20) K/uL Immature Gran # (Auto) 0.08 (0.01-0.20) K/uL Polychromasia 1+ PT 27.2 H (9.0-12.0) Seconds INR 2.6 H (0.9-1.1) APTT 31.8 H (21.0-31.0) Seconds PTT Ratio 1.1 D-Dimer 1220 H* (0-500) ug/L FEU Sodium 137 (136-145) mmol/L Potassium 3.4 L (3.5-5.1) mmol/L Chloride 104 (98-107) mmol/L Carbon Dioxide 24 (21-32) mmol/L Anion Gap 9 (3-11) BUN 13 (6-23) mg/dl Creatinine 0.94 (0.6-1.4) mg/dl Est Cr Clr Drug Dosing 95.7 ml/min Est GFR ( Amer) 90.3 ml/min Est GFR (Non-Af Amer) 77.9 ml/min BUN/Creatinine Ratio 13.8 (10-20) Glucose 180 H (70-99(Fasting)) mg/dl POC Glucose (70-99) mg/dl Lactate (0.4-2.0) mmol/L Calcium 8.6 (8.6-10.3) mg/dl Magnesium (1.7-2.4) mg/dl Total Bilirubin 0.9 (0.2-1.0) mg/dl AST 20 (13-39) U/L ALT 15 (7-52) U/L Alkaline Phosphatase 45 (34-104) U/L Troponin I High Sens 9.5 (0-20) pg/ml B-Natriuretic Peptide (0-100) pg/ml Total Protein 7.6 (6.0-8.3) gm/dl Albumin 4.0 (3.4-5.0) gm/dl Globulin 3.6 (2.5-4.0) gm/dl Albumin/Globulin Ratio 1.1 (0.9-2) SARS-CoV-2 (PCR) (Negative) Influenza Type A (PCR) (Neg) Influenza Type B (PCR) (Neg) RSV (RT-PCR) (Neg) 01/22/23 01/22/23 01/22/23 Range/Units 14:40 16:05 16:42 WBC (4.8-10.8) K/ul RBC (4.70-6.10) M/uL Hgb (14.0-18.0) g/dl Hct (42.0-52.0) % MCV (80.0-100.0) fL MCH (25.0-34.0) pg MCHC (32.0-36.0) g/dL RDW Std Deviation (36.4-46.3) fL RDW Coeff of Carson (11.5-14.5) % Plt Count (130-400) K/uL MPV (9.4-12.4) fL Immature Gran % (Auto) % Neut % (Auto) % Lymph % (Auto) % [place] % (Auto) % Eos % (Auto) % Baso % (Auto) % Neut # (Auto) (1.40-6.50) K/uL Lymph # (Auto) (1.20-3.40) K/uL [place] # (Auto) (0.11-0.59) K/uL Eos # (Auto) (0.00-0.50) K/uL Baso # (Auto) (0.00-0.20) K/uL Immature Gran # (Auto) (0.01-0.20) K/uL Polychromasia PT (9.0-12.0) Seconds INR (0.9-1.1) APTT (21.0-31.0) Seconds PTT Ratio D-Dimer (0-500) ug/L FEU Sodium (136-145) mmol/L Potassium (3.5-5.1) mmol/L Chloride (98-107) mmol/L Carbon Dioxide (21-32) mmol/L Anion Gap (3-11) BUN (6-23) mg/dl Creatinine (0.6-1.4) mg/dl Est Cr Clr Drug Dosing ml/min Est GFR ( Amer) ml/min Est GFR (Non-Af Amer) ml/min BUN/Creatinine Ratio (10-20) Glucose (70-99(Fasting)) mg/dl POC Glucose (70-99) mg/dl Lactate 2.4 H* (0.4-2.0) mmol/L Calcium (8.6-10.3) mg/dl Magnesium 1.4 L (1.7-2.4) mg/dl Total Bilirubin (0.2-1.0) mg/dl AST (13-39) U/L ALT (7-52) U/L Alkaline Phosphatase (34-104) U/L Troponin I High Sens (0-20) pg/ml B-Natriuretic Peptide (0-100) pg/ml Total Protein (6.0-8.3) gm/dl Albumin (3.4-5.0) gm/dl Globulin (2.5-4.0) gm/dl Albumin/Globulin Ratio (0.9-2) SARS-CoV-2 (PCR) NEGATIVE (Negative) Influenza Type A (PCR) Negative (Neg) Influenza Type B (PCR) Negative (Neg) RSV (RT-PCR) Negative (Neg) Administered Medications Acetaminophen (Acetaminophen 325 Mg Tab) 650 mg PO Q4H PRN PRN Reason: Pain or Fever Stop: 02/21/23 19:26 Last Admin: 01/23/23 02:51 Dose: 650 mg Documented By: Admin: 01/22/23 22:24 Dose: 650 mg Documented By: GHASSAN Piperacillin Sod/Tazobactam (Sod 4.5 gm/ Dextrose) 100 mls @ 25 mls/hr IV Q8H [facility]; Protocol Stop: 01/25/23 02:59 Last Infusion: 01/23/23 06:41 Dose: 0 mls/hr Documented By: Admin: 01/23/23 02:37 Dose: 25 mls/hr Documented By: GHASSAN Insulin Aspart (Insulin Aspart Per Unit Charge) 0 units SC ACHS TOD Stop: 02/21/23 20:59 Last Admin: 01/22/23 22:23 Dose: 2 units Documented By: GHASSAN Co-signed By: AARON Insulin Glargine (Lantus Per Unit Charge) 20 units SQ QPM TOD Stop: 02/21/23 20:59 Last Admin: 01/22/23 22:23 Dose: 20 units Documented By: GHASSAN Co-signed By: AARON Levothyroxine Sodium (Levothyroxine Sodium 150 Mcg Tablet) 150 mcg PO DAILYBB [facility] Stop: 02/22/23 06:29 Last Admin: 01/23/23 05:32 Dose: 150 mcg Documented By: GHASSAN Metoprolol Succinate (Metoprolol Succ 50mg Ext Rel Tab) 150 mg PO BID [facility] Stop: 02/21/23 20:59 Last Admin: 01/22/23 22:23 Dose: 150 mg Documented By: GHASSAN Phenazopyridine HCl (Phenazopyridine Hcl 200 Mg Tab) 200 mg PO TID PRN PRN Reason: Dysuria Stop: 01/25/23 21:39 Last Admin: 01/23/23 02:51 Dose: 200 mg Documented By: Admin: 01/22/23 22:24 Dose: 200 mg Documented By: GHASSAN Warfarin Sodium (Warfarin Sod 5 Mg Tab) 5 mg PO WeSa@1600 [facility] Stop: 02/21/23 20:59 Last Admin: 01/22/23 22:24 Dose: 5 mg Documented By: GHASSAN Discontinued Medications Amiodarone HCl/Dextrose (Amiodarone 360mg / 200ml D5w) Confirm Administered Dose 360 mg IV .STK-MED ONE Stop: 01/22/23 14:12 Last Admin: 01/22/23 14:43 Dose: 360 mg Documented By: KAYA Co-signed By: LISSETH Amiodarone HCl/Dextrose (Amiodarone 150mg / 100ml D5w) Confirm Administered Dose 150 mg IV .STK-MED ONE Stop: 01/22/23 14:12 Last Admin: 01/22/23 14:28 Dose: 150 mg Documented By: KAYA Co-signed By: ADNREW Furosemide (Furosemide Inj 20 Mg/2 Ml Vial) 20 mg IV ONE ONE Stop: 01/22/23 17:53 Last Admin: 01/22/23 18:39 Dose: 20 mg Documented By: Amiodarone HCl/Dextrose (Nexterone / D5w) 150 mg in 100 mls @ 600 mls/hr IV NOW STA Stop: 01/22/23 14:52 Last Admin: 01/22/23 14:58 Dose: Not Given Documented By: KAYA Amiodarone HCl/Dextrose (Nexterone / D5w) 360 mg in 200 mls @ 33.333 mls/hr IV ONE ONE Stop: 01/22/23 20:52 Last Admin: 01/22/23 14:58 Dose: Not Given Documented By: KAYA Ceftriaxone Sodium 2,000 mg/ (Dextrose) 50 mls @ 100 mls/hr IV NOW STA; Protocol Stop: 01/22/23 17:22 Last Infusion: 01/22/23 19:34 Dose: 0 mls/hr Documented By: Admin: 01/22/23 18:33 Dose: 100 mls/hr Documented By: Potassium Acetate (Potassium Acetate/Nss) 10 meq in 105 mls @ 105 mls/hr IV Q1H TOD Stop: 01/22/23 19:44 Last Infusion: 01/22/23 21:37 Dose: 0 mls/hr Documented By: Admin: 01/22/23 19:31 Dose: 105 mls/hr Documented By: Infusion: 01/22/23 19:31 Dose: 105 mls/hr Documented By: Admin: 01/22/23 18:45 Dose: 105 mls/hr Documented By: Vancomycin HCl 2,750 mg/ (Sodium Chloride) 555 mls @ 200 mls/hr IV 1900 ONE Stop: 01/22/23 21:46 Last Admin: 01/22/23 19:11 Dose: 200 mls/hr Documented By: Piperacillin Sod/Tazobactam (Sod 4.5 gm/ Dextrose) 100 mls @ 200 mls/hr IV 2100 ONE; Protocol Stop: 01/22/23 21:29 Last Infusion: 01/22/23 22:58 Dose: 0 mls/hr Documented By: Admin: 01/22/23 22:24 Dose: 200 mls/hr Documented By: GHASSAN Magnesium Sulfate/Dextrose (Magnesium Sulfate / D5w) 1 gm in 100 mls @ 50 mls/hr IV Q2H TOD Stop: 01/23/23 02:14 Last Infusion: 01/23/23 02:37 Dose: 0 mls/hr Documented By: Admin: 01/23/23 00:40 Dose: 50 mls/hr Documented By: Infusion: 01/23/23 00:40 Dose: 0 mls/hr Documented By: Admin: 01/22/23 22:34 Dose: 50 mls/hr Documented By: GHASSAN Sodium Chloride (Nss) 500 mls @ 500 mls/hr IV .Q1H TOD Stop: 01/23/23 05:14 Last Infusion: 01/23/23 05:16 Dose: 0 mls/hr Documented By: Admin: 01/23/23 04:15 Dose: 500 mls/hr Documented By: GHASSAN Ioversol (Optiray 320 500ml) 117 ml IV ONCE ONE Stop: 01/22/23 15:43 Last Admin: 01/22/23 15:42 Dose: 117 ml Documented By: CHECO Potassium Chloride (Potassium Chloride 20 Meq/15 Ml Udc) 40 meq PO NOW STA Stop: 01/22/23 17:38 Last Admin: 01/22/23 18:39 Dose: 40 meq Documented By: AB Imaging Data Radiologist's Impression: Abdomen/Pelvis CT 01/22/23 14:45 CT abd pelvis IV con only CLINICAL HISTORY: ABd pain, n/v TECHNIQUE: Helical axial images of the abdomen and pelvis were obtained and displayed. Automated dose lowering techniques and/or adjustment according to patient size were utilized for this exam. This exam was performed with intravenous contrast. CT DOSE: 2421.33 mGy.cm COMPARISON: Comparison is made to CT abdomen pelvis 12/13/2009 FINDINGS: Lower chest: No acute abnormality. Liver: Unremarkable. No focal lesions are seen. Gallbladder and biliary tree: Cholelithiasis is seen without evidence of cholecystitis. No intra- or extrahepatic biliary ductal dilation. Pancreas: Fatty replacement of the pancreas is seen. Spleen: Unremarkable. Adrenals: Unremarkable. Kidneys and ureters: Scarring is seen in the left kidney. Bladder: Ba catheter is seen. Reproductive organs: Prostatomegaly is seen. Bowel: The appendix is normal. Lymph nodes Retroperitoneal: Marisabel hepatis lymph nodes measure up to 12 mm in short axis. Pelvic: Unremarkable. Mesenteric: Unremarkable. Peritoneum: Normal. Vessels: Atherosclerotic calcifications are seen. Abdominal wall: Bilateral fat-containing inguinal hernias are seen. Bones: Degenerative changes in the visualized spine. IMPRESSION: No acute abnormalities are seen. Previously noted peripancreatic stranding is no longer seen compatible with resolved pancreatitis.. ACT 112: Negative or not required by law. Electronically signed by: Jose Cotto M.D. 01/22/2023 4:55 PM Chest X-Ray 01/22/23 14:45 XR chest 1V not portable CLINICAL HISTORY: Chest pain, nonspecific TECHNIQUE: Single frontal radiograph of the chest was obtained. Comparison: Comparison is made to chest radiograph 03/05/2019 FINDINGS: Lines and tubes are stable. Cardiomegaly is noted. Prominence and cephalization of the vasculature is seen. Airspace opacities are seen predominantly in the left lung. No evidence of pleural effusion or pneumothorax. IMPRESSION: 1. Cardiomegaly and mild pulmonary edema. 2. Multifocal airspace opacities which may represent pneumonia, less likely alveolar edema. ACT 112: Negative or not required by law. Electronically signed by: Jose Cotto M.D. 01/22/2023 3:13 PM Chest CTA 01/22/23 15:33 CT angio chest PE protocol CLINICAL HISTORY: PE TECHNIQUE: Multidetector row helical CT of the chest was performed with angiographic protocol. Coronal and sagittal reformations were obtained. Coronal and sagittal MIPS were obtained from the axial data set and were submitted for review. Automated dose lowering techniques and/or adjustment according to patient size were utilized for this exam. Comparison: Comparison is made to CT chest 07/18/2014 FINDINGS: Lungs and pleura: Atelectasis versus scarring is seen in the dependent portions of the lungs. Calcified pleural plaques are seen. Heart and pericardium: Aortic valvular calcifications are seen. Implanted pacemaker is noted. Vessels: No evidence of pulmonary embolism. Moderate to severe atherosclerotic disease is seen. Mediastinum and gilbert: Subcentimeter lymph nodes are seen. Chest wall and lower neck: Unremarkable. Abdomen: For findings below the diaphragm, please refer to CT of the abdomen dated the same. Bones: Degenerative changes of the thoracic spine. Old healed rib fractures are seen. IMPRESSION: 1. No acute abnormality and in particular no evidence of pulmonary embolus. 2. Pleural plaques and atelectasis versus scarring. 3. Cardiomegaly and atherosclerotic disease. ACT 112: Negative or not required by law. Electronically signed by: Jose Cotto M.D. 01/22/2023 4:51 PM Discharge Plan Visit Data Chief Complaint: Chest Pain Stated Complaint: WEAKNESS ED Provider: Nitesh [place] Discharge Problem: NSVT (nonsustained ventricular tachycardia), Acute on chronic HFrEF (heart failure with reduced ejection fraction) Patient Disposition: Admitted As Inpatient Discharge Instructions Interventions: ED Discharge Assessment Last Done: 01/22/23 20:15
[2023-01-22] MEDS ORDERED: OPTIRAY 320 500ml IV ONE (15:42)
[2023-01-22] MEDS ORDERED: cefTRIAXone SODIUM 2,000 MG in DEXTROSE 5 % MINI-B 50 ML IV STA (16:53)
--- NOTE | 2023-01-22 16:53 | CT Scan Report ---
CT angio chest PE protocol CLINICAL HISTORY: PE TECHNIQUE: Multidetector row helical CT of the chest was performed with angiographic protocol. Mcnulty l and sagittal reformations were obtained. Coronal and sagittal MIPS were obtained from the axial sofia a set and were submitted for review. Automated dose lowering techniques and/or adjustment according to patient size were utilized for this exam. Comparison: Comparison is made to CT chest 07/18/2014 FINDINGS: Lungs and pleura: Atelectasis versus scarring is seen in the dependent portions of the lungs. Calcifi ed pleural plaques are seen. Heart and pericardium: Aortic valvular calcifications are seen. Implanted pacemaker is noted. Vessels: No evidence of pulmonary embolism. Moderate to severe atherosclerotic disease is seen. Mediastinum and gilbert: Subcentimeter lymph nodes are seen. Chest wall and lower neck: Unremarkable. Abdomen: For findings below the diaphragm, please refer to CT of the abdomen dated the same. Bones: Degenerative changes of the thoracic spine. Old healed rib fractures are seen. IMPRESSION: 1. No acute abnormality and in particular no evidence of pulmonary embolus. 2. Pleural plaques and atelectasis versus scarring. 3. Cardiomegaly and atherosclerotic disease. ACT 112: Negative or not required by law. Electronically signed by: Jose Cotto M.D. 01/22/2023 4:51 PM
--- NOTE | 2023-01-22 16:57 | CT Scan Report ---
CT abd pelvis IV con only CLINICAL HISTORY: ABd pain, n/v TECHNIQUE: Helical axial images of the abdomen and pelvis were obtained and displayed. Automated dose lowering techniques and/or adjustment according to patient size were utilized for this exam. This e xam was performed with intravenous contrast. CT DOSE: 2421.33 mGy.cm COMPARISON: Comparison is made to CT abdomen pelvis 12/13/2009 FINDINGS: Lower chest: No acute abnormality. Liver: Unremarkable. No focal lesions are seen. Gallbladder and biliary tree: Cholelithiasis is seen without evidence of cholecystitis. No intra- or extrahepatic biliary ductal dilation. Pancreas: Fatty replacement of the pancreas is seen. Spleen: Unremarkable. Adrenals: Unremarkable. Kidneys and ureters: Scarring is seen in the left kidney. Bladder: Ba catheter is seen. Reproductive organs: Prostatomegaly is seen. Bowel: The appendix is normal. Lymph nodes Retroperitoneal: Marisabel hepatis lymph nodes measure up to 12 mm in short axis. Pelvic: Unremarkable. Mesenteric: Unremarkable. Peritoneum: Normal. Vessels: Atherosclerotic calcifications are seen. Abdominal wall: Bilateral fat-containing inguinal hernias are seen. Bones: Degenerative changes in the visualized spine. IMPRESSION: No acute abnormalities are seen. Previously noted peripancreatic stranding is no longer seen compatib le with resolved pancreatitis.. ACT 112: Negative or not required by law. Electronically signed by: Jose Cotto M.D. 01/22/2023 4:55 PM
[2023-01-22 17:04] LABS: Influenza A virus by PCR Negative (Neg); Influenza B virus by PCR Negative (Neg); RSV by PCR Negative (Neg); SARS CoV2 RNA(COVID-19) Ceph NEGATIVE (Negative)
--- NOTE | 2023-01-22 17:15 | History & Physical Report ---
Date of Service January 22, 2023 Assessment & Plan (1) Sepsis: (2) Acute cystitis without hematuria: (3) Acute on chronic HFrEF (heart failure with reduced ejection fraction): (4) HTN (hypertension): (5) NSVT (nonsustained ventricular tachycardia): (6) ASHLEY (obstructive sleep apnea): (7) Hypothyroidism: (8) Diabetes mellitus, type II: Plan Mr. Parham is a 77 year old gentleman with past medical history notable for permanent atrial fibrillation, HFmrEF, DMTII, hypothyroidism who is admitted for concern for acute heart failure exacerbation iso of possible infection. #Sepsis secondary to UTI #Acute cystitis #BPH -sepsis criteria met by HR(despite a fib), WBC, infection, and lactic acidosis -Hypertensive, monitor volume status-encourage PO intake -Lactate improved with initial abx, 3--> 2.4 -Follow infectious work up -Empiric Vanc/zosyn -Monitor on telemetry -Trend lactate, consider volume resuscitation v continue diuersis #Acute on HFmrEF (EF 45% 08/05/2022) #Obstructive Coronary Artery Disease s/p DANIELA Lcx/RCA #Hypertension #HLD Home regimen: Metoprolol XL 150mg BID, Furosemide 20mg prn (2-3 x weekly) Declined statin/zetia/PCSK9 historically Trop negative, BNP 253 -s/p IV lasix 20mg IV -Continue IV lasix daily -Strict I/Os, daily weights, low sodium, FR #NSVT -discontinue amiodarone -Resume home metoprolol -Cardiology consult -Monitor on tele #Permanent Atrial Fibrilliation -Continue metoprolol 150mg BID -Continue Warfarin #Generalized weakness -likely related to ongoing infectious process, treat above -CT head negative -PT/OT ordered #Asymmetric lower extremity edema -+DDimer, INR within range, reports compliance -CTA - and Dopplers negative -CTM #DMTII A1C On Metformin 1000mg BID and tresiba 20U qhs (dose not use semaglutide reportedly) -Continue glargine 20 U qhs and SSI #Hypothyroidism -Continue synthroid 150mcg #ASHLEY #Pulm Hypertension Noncompliant with CPAP, refuses trial DVT Warfarin GI/Bowel Regimen prn Lytes: replace prn, keep K >4, M >3, phos >3 iso multiple cardiac comorbidities Admission and Anticipated Discharge Date Admission Date: Time spent evaluating patient, direct bedside care, chart review, placing orders, interpretation of diagnostic studies, discussion with consultants, patient, and family members, as well as other required patient management activities is 60 minutes. History of Present Illness Chief Complaint: Generalized weakness Primary Care Provider: Darren Santos MD Mr. Parham is a 77 year old gentleman with past medical history notable for permanent atrial fibrillation, HFmrEF, DMTII, hypothyroidism who presented to [facility] due to sudden generalized weakness. Patient states that he has experienced dysuria for over two weeks, but felt it was related to "spices" in his food. He notes his has been recently ill, and not sure if he has "what she does." He feels great when his heart rates are "less than 90" and denies any chest pain or palpitations. Patient states that he has been in his usual state of health, outside of dysuria, until this morning when he felt nauseated after breakfast and experienced a sudden "spell" of generalized weakness, which resolved upon presentation to ED. Patient difficult to keep on track and answer questions directly, minimizing symptoms or concerns. He reports chronic lower extremity swelling, with L > R--stating it runs in the family. He endorses compliance with his medications and denies other acute concerns. Patient states he last took his lasix this morning, but notes that he sometimes "avoids" it. Patient also reports issues with urinary hesitancy. In the ED, vitals were notable for BP 110-150s, HR ad39d-gwa 100s, and O2 sat of 95% on RA CT Head ordered: negative, CTA negative for PE, CXR with likely edema EKG atrial fibrillation Labs notable for leukocytosis to 13.73, K 3.4, Mag 1.4 BNP 253, Lactate 3-->2.4 ED reported episodes of NSVT and started amiodarone; reports device check negative ED interventions: amiodarone, ctx Patient to be admitted to PCU/tele for further evaluation and management of acute cysitis and acute on chronic heart failure exacerbation. Allergies Allergy/AdvReac Type Severity Reaction Status Date / Time pollen extracts Allergy Intermediate SNEEZING, Verified 01/22/23 16:39 CONGESTION glipizide AdvReac Intermediate gi upset Verified 01/22/23 16:39 Home Medications Medication Instructions Recorded Confirmed Type aspirin 81 mg tablet,delayed 81 mg PO DAILY 03/05/19 01/22/23 History release (Vinny Low Dose Aspirin) metoprolol succinate 100 mg 150 mg PO BID 03/05/19 01/22/23 History tablet,extended release 24 hr nitroglycerin 0.4 mg sublingual 0.4 mg sublingual DIRECTED PRN 03/05/19 01/22/23 History tablet Chest Pain furosemide 20 mg tablet (Lasix) 20 mg PO DAILY PRN Fluid Retention 12/13/21 01/22/23 History levothyroxine 150 mcg tablet 150 mcg PO DAILYBB 12/13/21 01/22/23 History metformin 1,000 mg tablet 1,000 mg PO BID 12/13/21 01/22/23 History potassium chloride 10 mEq 10 meq PO DAILY PRN TAKES WHEN 12/13/21 01/22/23 History tablet,extended release(part/cryst) USES LASIX. warfarin 5 mg tablet See Rx Instructions .Route .COMPLEX 12/13/21 01/22/23 History Past Med/Surg History Medical History (Updated 01/22/23 @ 22:36 by Nadia Vargas MD) Atrial fibrillation CAD (coronary artery disease) Diabetes mellitus, type II History of UT (myocardial infarction) HTN (hypertension) Hypothyroidism ASHLEY (obstructive sleep apnea) intolerant to cpap Tachy-mirtha syndrome Surgical History History of heart artery stent Inguinal hernia s/p repair S/P placement of cardiac pacemaker S/P tonsillectomy and adenoidectomy Family History Other Diabetes Heart disease Social History Smoking Status: Former smoker Hx Alcohol Use: No Hx Substance Use: No Preferred Language: Albanian Communication Ability: Effective Script Worker Required: No Beliefs That Will Affect Care: None Current Living Situation: Spouse Current Living Situation Comment: Lives at home with Feels Safe at Home: Yes Safety Concerns: Feels Safe At This Time Assistive Devices: Denture - Upper and Glasses Assistive Devices Comment: Reading glasses Review of Systems Review of Systems: Constitutional: (-) fever/chills, (-) recent loss of weight, (-) appetite changes, (-) night sweats. Head: (-) headache, (-) dizziness. Eye: (-) blurring of vision, (-) double vision, (-) redness. Ear: (-) hearing loss, (-) discharge, (-) vertigo Nose: (-) discharge, (-) bleeding, (-) congestion, (-) post nasal drip. Throat: (-) sore throat, (-) hoarseness of voice, (-) odynophagia. Cardiovascular: (-) chest pain, (-) palpitations, (-) syncope, (-) orthopnea, (- ) PND, (+) leg swelling. Respiratory: (-) shortness of breath, (-) cough, (-) wheezing, (-) hemoptysis. Neuro: (+) weakness in extremities, (-) numbness, (-) tingling, (-) tremor. Gastrointestinal: (-) belly pain, (-) belly distension, (-) nausea, (-) vomiting, (-) diarrhea, (-) constipation Genitourinary: (-) hematuria, (+) dysuria, (-) polyuria, (+) hesitancy, (+) frequency, (-) urinary incontinence. Musculoskeletal: (-) myalgia, (-) arthralgia. Skin: (-) rashes. Endocrine: (-) heat/cold intolerance. Physical Exam Physical Exam: GENERAL APPEARANCE: AxOx4, no acute distress, conversational HEENT: NC, AT. MMM. EOMI, clear conjunctiva, oropharynx clear. NECK: Supple without lymphadenopathy. No stiffness or restricted ROM. HEART: irregularly irregular LUNGS: bibasilar crackles appreciated ABDOMEN: Soft, nontender, nondistended with good bowel sounds heard. BACK: No CVAT, no obvious deformity. EXTREMITIES: bilateral nonpitting edema, L>R; venous statsis changes NEUROLOGICAL: Grossly nonfocal. Alert and oriented, moving all 4 extremities. CN not formally tested but appear grossly intact. Results & Data Results & Data Vital Signs (Past 12 Hours) Vital Signs Temp Pulse Pulse Resp BP BP Pulse Ox 01/22/23 16:00 95 H 20 97 01/22/23 16:00 119/89 01/22/23 15:56 132/92 01/22/23 15:56 98 H 17 98 01/22/23 15:53 99 01/22/23 15:15 88 17 96 01/22/23 15:15 139/80 01/22/23 15:14 91 H 16 97 01/22/23 15:14 141/72 H 01/22/23 15:14 97 H 17 141/72 H 97 01/22/23 15:00 81 19 96 01/22/23 15:00 146/90 H 01/22/23 14:45 94 H 15 95 01/22/23 14:48 97 01/22/23 14:48 97 01/22/23 14:30 92 H 19 93 01/22/23 14:30 123/65 01/22/23 14:24 97 H 21 91 01/22/23 14:24 131/70 01/22/23 14:18 91 H 19 93 01/22/23 14:19 109 H 01/22/23 14:28 92 01/22/23 14:19 37.4 C 102 H 14 131/70 93 O2 Del Method O2 Flow Rate 01/22/23 16:00 01/22/23 16:00 01/22/23 15:56 01/22/23 15:56 01/22/23 15:53 01/22/23 15:15 01/22/23 15:15 01/22/23 15:14 01/22/23 15:14 01/22/23 15:14 Room Air 01/22/23 15:00 01/22/23 15:00 01/22/23 14:45 01/22/23 14:48 Nasal Cannula 2 01/22/23 14:48 Nasal Cannula 2 01/22/23 14:30 01/22/23 14:30 01/22/23 14:24 01/22/23 14:24 01/22/23 14:18 01/22/23 14:19 01/22/23 14:28 Nasal Cannula 0 01/22/23 14:19 Room Air Laboratory Results Short CBC 01/22/23 Range/Units 14:40 WBC 13.73 H (4.8-10.8) K/ul Hgb 12.5 L (14.0-18.0) g/dl Hct 36.2 L (42.0-52.0) % Plt Count 144 (130-400) K/uL BMP 01/22/23 14:40 Sodium 137 Potassium 3.4 L Chloride 104 Carbon Dioxide 24 BUN 13 Creatinine 0.94 Glucose 180 H Calcium 8.6 Liver Function 01/22/23 Range/Units 14:40 Total Bilirubin 0.9 (0.2-1.0) mg/dl AST 20 (13-39) U/L ALT 15 (7-52) U/L Alkaline Phosphatase 45 (34-104) U/L Albumin 4.0 (3.4-5.0) gm/dl Urine 01/22/23 Range/Units Unknown Urine Color Yellow Urine Appearance Clear (Clear) Urine pH 7.0 (4.5-7.5) Ur Specific Coyle 1.013 (1.000-1.030) Urine Protein Negative (Negative) Urine Glucose (UA) Negative (Negative) Diagnostic Findings Abdomen/Pelvis CT 01/22/23 14:45 CT abd pelvis IV con only CLINICAL HISTORY: ABd pain, n/v TECHNIQUE: Helical axial images of the abdomen and pelvis were obtained and displayed. Automated dose lowering techniques and/or adjustment according to patient size were utilized for this exam. This exam was performed with intravenous contrast. CT DOSE: 2421.33 mGy.cm COMPARISON: Comparison is made to CT abdomen pelvis 12/13/2009 FINDINGS: Lower chest: No acute abnormality. Liver: Unremarkable. No focal lesions are seen. Gallbladder and biliary tree: Cholelithiasis is seen without evidence of cholecystitis. No intra- or extrahepatic biliary ductal dilation. Pancreas: Fatty replacement of the pancreas is seen. Spleen: Unremarkable. Adrenals: Unremarkable. Kidneys and ureters: Scarring is seen in the left kidney. Bladder: Ba catheter is seen. Reproductive organs: Prostatomegaly is seen. Bowel: The appendix is normal. Lymph nodes Retroperitoneal: Marisabel hepatis lymph nodes measure up to 12 mm in short axis. Pelvic: Unremarkable. Mesenteric: Unremarkable. Peritoneum: Normal. Vessels: Atherosclerotic calcifications are seen. Abdominal wall: Bilateral fat-containing inguinal hernias are seen. Bones: Degenerative changes in the visualized spine. IMPRESSION: No acute abnormalities are seen. Previously noted peripancreatic stranding is no longer seen compatible with resolved pancreatitis.. ACT 112: Negative or not required by law. Electronically signed by: Jose Cotto M.D. 01/22/2023 4:55 PM Chest X-Ray 01/22/23 14:45 XR chest 1V not portable CLINICAL HISTORY: Chest pain, nonspecific TECHNIQUE: Single frontal radiograph of the chest was obtained. Comparison: Comparison is made to chest radiograph 03/05/2019 FINDINGS: Lines and tubes are stable. Cardiomegaly is noted. Prominence and cephalization of the vasculature is seen. Airspace opacities are seen predominantly in the left lung. No evidence of pleural effusion or pneumothorax. IMPRESSION: 1. Cardiomegaly and mild pulmonary edema. 2. Multifocal airspace opacities which may represent pneumonia, less likely alveolar edema. ACT 112: Negative or not required by law. Electronically signed by: Jose Cotto M.D. 01/22/2023 3:13 PM Chest CTA 01/22/23 15:33 CT angio chest PE protocol CLINICAL HISTORY: PE TECHNIQUE: Multidetector row helical CT of the chest was performed with angiographic protocol. Coronal and sagittal reformations were obtained. Coronal and sagittal MIPS were obtained from the axial data set and were submitted for review. Automated dose lowering techniques and/or adjustment according to patient size were utilized for this exam. Comparison: Comparison is made to CT chest 07/18/2014 FINDINGS: Lungs and pleura: Atelectasis versus scarring is seen in the dependent portions of the lungs. Calcified pleural plaques are seen. Heart and pericardium: Aortic valvular calcifications are seen. Implanted pacemaker is noted. Vessels: No evidence of pulmonary embolism. Moderate to severe atherosclerotic disease is seen. Mediastinum and gilbert: Subcentimeter lymph nodes are seen. Chest wall and lower neck: Unremarkable. Abdomen: For findings below the diaphragm, please refer to CT of the abdomen dated the same. Bones: Degenerative changes of the thoracic spine. Old healed rib fractures are seen. IMPRESSION: 1. No acute abnormality and in particular no evidence of pulmonary embolus. 2. Pleural plaques and atelectasis versus scarring. 3. Cardiomegaly and atherosclerotic disease. ACT 112: Negative or not required by law. Electronically signed by: Jose Cotto M.D. 01/22/2023 4:[address] 01/22/23 17:42 CT head/brain wo con CLINICAL HISTORY: sudden weakness collapse Technique: Contiguous axial CT images of the head were acquired from the base of the skull to the vertex without intravenous contrast administration. Images were viewed in brain, subdural and bone windows. Automated dose lowering techniques and/or adjustment according to patient size were utilized for this exam. Comparison: None available at the time of this dictation. Findings: Areas of decreased attenuation are present in the periventricular and subcortical white matter bilaterally consistent with small vessel ischemic disease. Generalized cerebral atrophy with commensurate enlargement of the ventricles, sulci, and cisterns is also present. There is no acute intracranial hemorrhage or evidence of acute territorial infarction. No shift of the midline structures, mass effect, or extra-axial abnormalities are shown. Atherosclerotic calcifications are present in the intracranial segments of the internal carotid arteries. Right insular cortex lacunar infarct is seen. Imaged portions of the paranasal sinuses and mastoid air cells are clear. The orbits appear normal. There are no acute fractures of the calvaria or scalp swelling. Impression: No acute intracranial hemorrhage, no evidence of acute territorial infarction or other acute intracranial disease process. ACT 112: Negative or not required by law. Electronically signed by: Jose Cotto M.D. 01/22/2023 7:33 PM Venous Doppler Study 01/22/23 18:13 US venous doppler LE LT CLINICAL HISTORY: +DDIMER, Left > right LE TECHNIQUE: Left lower extremity real-time compression venous ultrasound with Color Doppler imaging. Utilizing real-time ultrasonic imaging multiple real time high-resolution ultrasonic images with compression and noncompression maneuvers of the deep venous system in addition to color doppler imaging were performed from the common femoral vein through the proximal calf veins. COMPARISON: None available at the time of this dictation. FINDINGS/IMPRESSION: Currently there is normal compressibility of the deep venous system from the common femoral vein through the proximal calf veins. No superficial venous thrombosis is identified. ACT 112: Negative or not required by law. Electronically signed by: Jose Cotto M.D. 01/22/2023 8:04 PM Medications Administered Home Medications Medication Instructions Recorded Confirmed Last Taken aspirin 81 mg tablet,delayed 81 mg PO DAILY 03/05/19 01/22/23 01/22/23 10:00 release (Vinny Low Dose Aspirin) metoprolol succinate 100 mg 150 mg PO BID 03/05/19 01/22/23 01/22/23 10:00 tablet,extended release 24 hr nitroglycerin 0.4 mg sublingual 0.4 mg sublingual DIRECTED PRN 03/05/19 01/22/23 Unknown tablet Chest Pain furosemide 20 mg tablet (Lasix) 20 mg PO DAILY PRN Fluid Retention 12/13/21 01/22/23 01/22/23 13:00 levothyroxine 150 mcg tablet 150 mcg PO DAILYBB 12/13/21 01/22/23 01/22/23 06:00 metformin 1,000 mg tablet 1,000 mg PO BID 12/13/21 01/22/23 01/22/23 10:00 potassium chloride 10 mEq 10 meq PO DAILY PRN TAKES WHEN 12/13/21 01/22/23 01/22/23 13:00 tablet,extended release(part/cryst) USES LASIX. warfarin 5 mg tablet See Rx Instructions .Route .COMPLEX 12/13/21 01/22/23 12/12/21 Active Medications Generic Name Dose Route Start Last Admin Trade Name Freq PRN Reason Stop Dose Admin Acetaminophen 650 mg 01/22/23 19:27 01/22/23 22:24 Acetaminophen 325 Mg Tab PO 02/21/23 19:26 650 mg Q4H PRN Administration Pain or Fever Insulin Aspart 0 units 01/22/23 21:00 01/22/23 22:23 Insulin Aspart Per Unit Charge SC 02/21/23 20:59 2 units ACHS TOD Administration Insulin Glargine 20 units 01/22/23 21:00 01/22/23 22:23 Lantus Per Unit Charge SQ 02/21/23 20:59 20 units QPM TOD Administration Metoprolol Succinate 150 mg 01/22/23 21:00 01/22/23 22:23 Metoprolol Succ 50mg Ext Rel Tab PO 02/21/23 20:59 150 mg BID TOD Administration Phenazopyridine HCl 200 mg 01/22/23 21:40 01/22/23 22:24 Phenazopyridine Hcl 200 Mg Tab PO 01/25/23 21:39 200 mg TID PRN Administration Dysuria Warfarin Sodium 5 mg 01/22/23 21:00 01/22/23 22:24 Warfarin Sod 5 Mg Tab PO 02/21/23 20:59 5 mg [id number] TOD Administration
[2023-01-22] MEDS ORDERED: POTASSIUM CHLORIDE 20 MEQ/15 ML UDC PO STA (17:37)
[2023-01-22] MEDS ORDERED: LACTATED RINGER'S 250 ML IV ONE (17:50)
[2023-01-22] MEDS ORDERED: FUROSEMIDE INJ 20 MG/2 ML VIAL IV ONE (17:52)
[2023-01-22] MEDS ORDERED: VANCOMYCIN CONSULT ACTIVE PRN (18:33)
[2023-01-22] MEDS: POTASSIUM ACETATE/NSS 10 MEQ/105 ML BAG IV SCH ×2 (18:45→19:31)
[2023-01-22] MEDS ORDERED: VANCOMYCIN HCL 2,750 MG in SODIUM CHLORIDE 0.9% 500 ML IV ONE (19:00)
[2023-01-22] MEDS ORDERED: DEXTROSE 50% 50 ML SYRINGE IV PRN (19:27)
[2023-01-22] MEDS ORDERED: POLYETHYLENE (MIRALAX) 17 GM PACK PO PRN (19:27)
[2023-01-22] MEDS ORDERED: NITROGLYCERIN SL 0.4 MG/TAB TAB SL PRN (19:27)
[2023-01-22] MEDS ORDERED: CARBOHYDRATES FOR HYPOGLYCEMIA PO PRN (19:27)
[2023-01-22] MEDS ORDERED: GLUCAGON FOR INJ 1 MG VIAL SQ PRN (19:27)
[2023-01-22] MEDS ORDERED: GLUCOSE 10 TAB/TUBE PO PRN (19:27)
[2023-01-22] MEDS ORDERED: GLUCOSE 40% GEL 15 GM TUBE PO PRN (19:27)
--- NOTE | 2023-01-22 19:34 | CT Scan Report ---
CT head/brain wo con CLINICAL HISTORY: sudden weakness collapse Technique: Contiguous axial CT images of the head were acquired from the base of the skull to the dayday blaise without intravenous contrast administration. Images were viewed in brain, subdural and bone [facility]. Automated dose lowering techniques and/or adjustment according to patient size were utilized for this exam. Comparison: None available at the time of this dictation. Findings: Areas of decreased attenuation are present in the periventricular and subcortical white matter bilate rally consistent with small vessel ischemic disease. Generalized cerebral atrophy with commensurate e nlargement of the ventricles, sulci, and cisterns is also present. There is no acute intracranial hem orrhage or evidence of acute territorial infarction. No shift of the midline structures, mass effect, or extra-axial abnormalities are shown. Atherosclerotic calcifications are present in the intracran ial segments of the internal carotid arteries. Right insular cortex lacunar infarct is seen. Imaged portions of the paranasal sinuses and mastoid air cells are clear. The orbits appear normal. There are no acute fractures of the calvaria or scalp swelling. Impression: No acute intracranial hemorrhage, no evidence of acute territorial infarction or other acute intracra nial disease process. ACT 112: Negative or not required by law. Electronically signed by: Jose Cotto M.D. 01/22/2023 7:33 PM
[2023-01-22 19:51] LABS: Appearance Urine Clear (Clear); Bacteria Urine Automated Negative (Negative); Bilirubin Urine Negative (Negative); Blood Urine 3+ (Negative); Color Urine Yellow; Epithelial Cell Urine Auto 0-5 /lpf (0-5); Glucose Urine UA Negative (Negative); Ketones Urine Negative (Negative); Leukocyte Esterase Urine 3+ (Negative); Nitrite Urine Negative (Negative); Protein Urine Negative (Negative); RBC Urine Automated >30 /hpf (0-4); Specific Gravity Urine 1.013 (1.000-1.030); Urobilinogen Urine Negative (Negative); WBC Urine Automated >30 /hpf (0-5)
--- NOTE | 2023-01-22 20:05 | Ultrasound Report ---
US venous doppler LE LT CLINICAL HISTORY: +DDIMER, Left > right LE TECHNIQUE: Left lower extremity real-time compression venous ultrasound with Color Doppler imaging. U tilizing real-time ultrasonic imaging multiple real time high-resolution ultrasonic images with compr ession and noncompression maneuvers of the deep venous system in addition to color doppler imaging we re performed from the common femoral vein through the proximal calf veins. COMPARISON: None available at the time of this dictation. FINDINGS/IMPRESSION: Currently there is normal compressibility of the deep venous system from the common femoral vein thro ugh the proximal calf veins. No superficial venous thrombosis is identified. ACT 112: Negative or not required by law. Electronically signed by: Jose Cotto M.D. 01/22/2023 8:04 PM
[2023-01-22] MEDS ORDERED: AMIODARONE / D5W 360 MG/200 ML BAG IV SCH (20:45)
[2023-01-22] MEDS ORDERED: WARFARIN SOD 5 MG TAB PO SCH (21:00)
[2023-01-22] MEDS ORDERED: PIPERACILLIN/TAZOBACTAM 4.5 GM in DEXTROSE 5% MINI-B 100 ML IV ONE (21:00)
[2023-01-22] MEDS: LANTUS PER UNIT CHARGE SQ SCH (22:23)
[2023-01-22] MEDS: INSULIN ASPART PER UNIT CHARGE SC SCH (22:23)
[2023-01-22] MEDS: METOPROLOL SUCC 50MG EXT REL TAB PO SCH (22:23)
[2023-01-22] MEDS: ACETAMINOPHEN 325 MG TAB PO PRN (22:24)
[2023-01-22] MEDS: PHENAZOPYRIDINE HCL 200 MG TAB PO PRN (22:24)
[2023-01-22] MEDS: MAGNESIUM SULFATE / D5W 1 GM/100 ML BAG IV SCH (22:34)
[2023-01-23] MEDS: MAGNESIUM SULFATE / D5W 1 GM/100 ML BAG IV SCH (00:40)
[2023-01-23 01:45] LABS: Hematocrit (blood only) 34.3 % (42.0-52.0); Hemoglobin 11.9 g/dl (14.0-18.0); Mean Corpuscular Hemoglobin 33.9 pg (25.0-34.0); Mean Corpuscular Hgb Conc 34.7 g/dL (32.0-36.0); Mean Corpuscular Volume 97.7 fL (80.0-100.0); Mean Platelet Volume 11.2 fL (9.4-12.4); Platelet Count 132 K/uL (130-400); RDW Coefficient of Variation 13.3 % (11.5-14.5); RDW Standard Deviation 47.8 fL (36.4-46.3); Red Blood Count 3.51 M/uL (4.70-6.10); White Blood Count 16.29 K/ul (4.8-10.8)
[2023-01-23 02:03] LABS: BUN Creatinine Ratio 11.8 (10-20); Calcium 8.5 mg/dl (8.6-10.3); Creatinine Clr Calc Pharmacy 80.6 ml/min; Est GFR (African American) 74.7 ml/min; Est GFR (Non-African American) 64.4 ml/min; Magnesium 1.9 mg/dl (1.7-2.4); Phosphorus 2.5 mg/dl (2.5-4.9); Potassium 4.1 mmol/L (3.5-5.1)
[2023-01-23 02:14] LABS: INR 2.4 (0.9-1.1); Prothrombin Time 24.9 Seconds (9.0-12.0)
[2023-01-23] MEDS: PIPERACILLIN/TAZOBACTAM 4.5 GM in DEXTROSE 5% MINI-B 100 ML IV SCH ×3 (02:37→19:00)
[2023-01-23] MEDS: PHENAZOPYRIDINE HCL 200 MG TAB PO PRN ×3 (02:51→20:53)
[2023-01-23] MEDS: ACETAMINOPHEN 325 MG TAB PO PRN ×2 (02:51→20:54)
[2023-01-23] MEDS ORDERED: SODIUM CHLORIDE 0.9% 500 ML IV SCH (04:15)
[2023-01-23] MEDS: LEVOTHYROXINE SODIUM 150 MCG TABLET PO SCH (05:32)
[2023-01-23] MEDS ORDERED: VANCOMYCIN HCL 1,250 MG in SODIUM CHLORIDE 0.9% 250 ML IV SCH (06:00)
[2023-01-23 06:03] LABS: Basophils # (auto) 0.04 K/uL (0.00-0.20); Basophils % (auto) 0.3 %; Eosinophils # (auto) 0.01 K/uL (0.00-0.50); Eosinophils % (auto) 0.1 %; Hematocrit (blood only) 32.9 % (42.0-52.0); Hemoglobin 11.4 g/dl (14.0-18.0); Immature Granulocytes # (auto) 0.15 K/uL (0.01-0.20); Lymphocytes % (auto) 10.4 %; Mean Corpuscular Hemoglobin 33.8 pg (25.0-34.0); Mean Corpuscular Hgb Conc 34.7 g/dL (32.0-36.0); Mean Corpuscular Volume 97.6 fL (80.0-100.0); Mean Platelet Volume 11.2 fL (9.4-12.4); Monocytes % (auto) 5.9 %; Neutrophils # (auto) 12.67 K/uL (1.40-6.50); Neutrophils % (auto) 82.3 %; Platelet Count 123 K/uL (130-400); RDW Coefficient of Variation 13.2 % (11.5-14.5); RDW Standard Deviation 47.4 fL (36.4-46.3); Red Blood Count 3.37 M/uL (4.70-6.10); White Blood Count 15.37 K/ul (4.8-10.8)
[2023-01-23 06:10] LABS: BUN Creatinine Ratio 12.9 (10-20); Calcium 8.4 mg/dl (8.6-10.3); Creatinine Clr Calc Pharmacy 87.8 ml/min; Est GFR (African American) 82.8 ml/min; Est GFR (Non-African American) 71.4 ml/min; Magnesium 1.9 mg/dl (1.7-2.4); Potassium 3.9 mmol/L (3.5-5.1)
[2023-01-23] MEDS: INSULIN ASPART PER UNIT CHARGE SC SCH ×4 (09:56→20:52)
[2023-01-23] MEDS: METOPROLOL SUCC 50MG EXT REL TAB PO SCH ×2 (09:57→20:53)
[2023-01-23] MEDS: ASPIRIN 81 MG ECTAB PO SCH (09:57)
--- NOTE | 2023-01-23 10:31 | Cardiology Consultation ---
Date of Consultation January 23, 2023 Assessment & Plan (1) Acute cystitis without hematuria: (2) Sepsis: (3) Heart failure with mildly reduced ejection fraction (HFmrEF): (4) Chronic atrial fibrillation: (5) Cardiac pacemaker in situ: (6) ASCVD (arteriosclerotic cardiovascular disease): (7) Systolic and diastolic CHF, chronic: (8) Valvular heart disease: (9) Mitral regurgitation: Plan Sepsis secondary to UTI, acute cystitis. Recent addition of Ozempic noted. As per Hospitalist. Nonsustained ventricular tachycardia. Initially treated with amiodarone. Personal review of the available rhythm strips and [facility] EKG's reveals atrial fibrillation with a rapid ventricular response with intermittent ventricular pacing. Device interrogation on 01/22/2023 without ventricular tachycardia, ventricular paced 19.2% of the time, 8 months remaining longevity. Chronic atrial fibrillation. Average ventricular rates during the day for the past three months have been 90 to 110 bpm. Increase metoprolol succinate to 200 mg in the AM and 150 mg in the PM. If intolerant to increased beta-veda dosing would add/resume digoxin. Continue chronic coumadin anticoagulation. Systolic and diastolic congestive heart failure. Appears compensated to mildly normovolemic. Hold oral Furosemide ASCVD. Stable. Continue requested medical management. Supervising Physician Co-Signing Physician Notes Supervising Physician Attestation: I have personally performed a history and physical examination on the patient. I agree with the physician assistant case manager's findings and plan as documented with the following additions. Subjective: Patient already feeling subjectively improved. Telemetry reveals rate controlled atrial fibrillation. Exam: Cardiovascular regular rhythm, no murmurs, no edema Data: EKG performed 01/23/2023 at 4:55 AM revealed atrial fibrillation at 72 bpm with occasional ventricular pacing Rhythm strips obtained by EMS reviewed, reveals underlying atrial fibrillation with occasional ventricular paced QRS complexes. Assessment and Plan: Chronic persistent atrial fibrillation Wide-complex rhythm likely due to demand ventricular pacing rather than ventricular tachycardia. -Increase metoprolol as noted. -Continue warfarin for stroke prophylaxis. -Monitor INR given treatment with IV Zosyn. Await urine culture. DVT prophylaxis: Patient is on full anticoagulation dose warfarin Malik Hogan DO History of Present Illness Reason for Consultation: Runs of VTA upon admission Requesting Physician: Dr. Vargas Attending Physician: Dr. Bejarano History of Present Illness Mr. Kian Parham is a complex 77 year old male who was admitted to [facility] on 01/22/2023, presenting to the [facility] ER via ambulance due to nausea, vomiting, and diarrhea. Patient notes multiple family members were sick with the same symptoms. Notes dysuria for the past 2-3 weeks and wonders if the recent addition of Ozempic 2-3 weeks ago may be the culprit. Notes running himself ragged, taking care of his who was recently hospitalized with a pacemaker complication requiring revision. Notes feeling drained and weak especially with positional change, "I couldn't maintain course." Patient admitted with the working diagnoses of sepsis secondary to UTI, acute cystitis in the setting of BPH, soares catheter in place, treated with empiric Vancomycin and Zosyn. Cardiology consultation requested due to nonsustained ventricular tachycardia observed via EMS and in the ER that was initially treated with amiodarone. CAREER COUNSELOR metoprolol resumed. Personal review of the [facility] EKG's reveals atrial fibrillation with a rapid ventricular response with intermittent ventricular pacing. Device interrogation on 01/22/2023 demonstrates 8 months remaining longevity. Rhythm ventricular paced 19.2% of the time. No ventricular tachycardia observed. Average ventricular rates during the day for the past three months have been 90 to 110 bpm. Personal review of the patient's continuous surveyor rod helper reveals atrial fibrillation with an intermittent ventricular paced rhythm and possible occasional PVC in singles. No chest pain. No palpitations. No unusual shortness of breath. No orthopnea, PND, increased edema, or abrupt weight gain. No syncope. No melena or hematochezia Past Medical and Surgical History: ASCVD VF arrest 2003, in the setting of acute inferior lateral ST elevation [place], status post drug eluting stent implantation to the left circumflex Status post 02/28/2017 s/p DANIELA to LCx and RCA Nonischemic Lexiscan nuclear stress testing on March 15, 2019 Permanent atrial fibrillation. Chronic coumadin anticoagulation, without bleeding issues Systolic and diastolic congestive heart failure. Moderate valvular disease Borderline enlarged aortic root, mildly enlarged proximal ascending thoracic aorta (4.0 cm). Pulmonary hypertension, estimated pulmonary artery systolic pressure 40 - 50 mm Hg Severe obstructive sleep apnea with HUBER 31, untreated. Hypertension Type II diabetes mellitus with neuropathy JOEY inhibitor induced cough Dyslipidemia. Hypothyroidism Hospitalization at [facility] in December 2021 with acute pancreatitis and COVID-19. Obesity. Hepatic steatosis. Generalized anxiety disorder Basal cell carcinoma Noncompliance. Family History: Father with a AAA rupture. Mother with DM. Sister at 63 with CHF. Brother with CHF at 57, history of rheumatic fever Social History: Never smoker. No alcohol. No illegal drug use. Lives with . Allergies Allergy/AdvReac Type Severity Reaction Status Date / Time pollen extracts Allergy Intermediate SNEEZING, Verified 01/22/23 16:39 CONGESTION glipizide AdvReac Intermediate gi upset Verified 01/22/23 16:39 Home Medications Medication Instructions Recorded Confirmed Type aspirin 81 mg tablet,delayed 81 mg PO DAILY 03/05/19 01/22/23 History release (Vinny Low Dose Aspirin) metoprolol succinate 100 mg 150 mg PO BID 03/05/19 01/22/23 History tablet,extended release 24 hr nitroglycerin 0.4 mg sublingual 0.4 mg sublingual DIRECTED PRN 03/05/19 01/22/23 History tablet Chest Pain furosemide 20 mg tablet (Lasix) 20 mg PO DAILY PRN Fluid Retention 12/13/21 01/22/23 History levothyroxine 150 mcg tablet 150 mcg PO DAILYBB 12/13/21 01/22/23 History metformin 1,000 mg tablet 1,000 mg PO BID 12/13/21 01/22/23 History potassium chloride 10 mEq 10 meq PO DAILY PRN TAKES WHEN 12/13/21 01/22/23 History tablet,extended release(part/cryst) USES LASIX. warfarin 5 mg tablet See Rx Instructions .Route .COMPLEX 12/13/21 01/22/23 History Patient History Medical History Atrial fibrillation CAD (coronary artery disease) Diabetes mellitus, type II History of WA (myocardial infarction) HTN (hypertension) Hypothyroidism SAHLEY (obstructive sleep apnea) intolerant to cpap Tachy-mirtha syndrome Surgical History History of heart artery stent Inguinal hernia s/p repair S/P placement of cardiac pacemaker S/P tonsillectomy and adenoidectomy Family History Other Diabetes Heart disease Social History Smoking Status: Former smoker Hx Alcohol Use: No Hx Substance Use: No Preferred Language: Occitan Communication Ability: Effective Piercer Operator Required: No Beliefs That Will Affect Care: None Current Living Situation: Spouse Current Living Situation Comment: Lives at home with Feels Safe at Home: Yes Safety Concerns: Feels Safe At This Time Assistive Devices: Denture - Upper and Glasses Assistive Devices Comment: Reading glasses Review of Systems Review of Systems: Complete Review of Systems is as stated above, negative, or noncontributory. Physical Exam Physical Exam: General: A&Ox3. NAD. HENT: Normocephalic. Atraumatic. Eyes: PER. Conjunctiva pink, sclera clear. Neck: No carotid bruits. No JVD. Heart: Irregularly irregular at 110 bpm. Distant heart sounds. No murmur. No rub. No gallop. PMI is nondisplaced. Lungs: Clear to auscultation. Abdomen: +BS. Soft. Nontender. No masses or organomegaly. Soares catheter in place. Extremities: Trace to 1+ edema. Stasis changes, left greater than right. Lymphedematous changes. No clubbing. No cyanosis. Limited neurological examination is without focal deficits. Pulses: radial=2/4, posterior tibial=1/4. Results & Data Vital Signs (Past 12 Hours) Vital Signs Temp Pulse Pulse Resp BP Pulse Ox O2 Del Method 01/23/23 07:45 36.7 C 97 H 18 147/84 H 93 Room Air 01/23/23 06:00 81 01/23/23 05:30 110/66 01/23/23 04:06 80 18 95/55 L 96 Room Air 01/23/23 03:24 36.9 C 87 18 87/54 L 93 Room Air 01/22/23 23:55 97 H 01/22/23 23:02 36.9 C 89 18 128/79 95 Room Air Laboratory Results Cardiac Enzymes 01/22/23 01/22/23 Range/Units 14:27 14:40 AST 20 (13-39) U/L Troponin I High Sens 9.5 (0-20) pg/ml B-Natriuretic Peptide 253 H (0-100) pg/ml Coagulation 01/22/23 01/22/23 01/23/23 Range/Units 14:27 14:40 01:17 PT 27.2 H 24.9 H (9.0-12.0) Seconds APTT 31.8 H (21.0-31.0) Seconds B-Natriuretic Peptide 253 H (0-100) pg/ml CBC 01/22/23 01/23/23 01/23/23 Range/Units 14:40 01:17 05:28 WBC 13.73 H 16.29 H 15.37 H (4.8-10.8) K/ul RBC 3.70 L 3.51 L 3.37 L (4.70-6.10) M/uL Hgb 12.5 L 11.9 L 11.4 L (14.0-18.0) g/dl Hct 36.2 L 34.3 L 32.9 L (42.0-52.0) % Plt Count 144 132 123 L (130-400) K/uL Neut # (Auto) 12.39 H 12.67 H (1.40-6.50) K/uL Lymph # (Auto) 0.74 L 1.60 (1.20-3.40) K/uL [place] # (Auto) 0.49 0.90 H (0.11-0.59) K/uL Eos # (Auto) 0.00 0.01 (0.00-0.50) K/uL Baso # (Auto) 0.03 0.04 (0.00-0.20) K/uL Comprehensive Metabolic Panel 01/22/23 01/23/23 01/23/23 Range/Units 14:40 01:17 05:28 Sodium 137 136 137 (136-145) mmol/L Potassium 3.4 L 4.1 D 3.9 (3.5-5.1) mmol/L Chloride 104 103 105 (98-107) mmol/L Carbon Dioxide 24 26 26 (21-32) mmol/L BUN 13 13 13 (6-23) mg/dl Creatinine 0.94 1.10 1.01 (0.6-1.4) mg/dl Glucose 180 H 157 H 126 H (70-99(Fasting)) mg/dl Calcium 8.6 8.5 L 8.4 L (8.6-10.3) mg/dl AST 20 (13-39) U/L ALT 15 (7-52) U/L Alkaline Phosphatase 45 (34-104) U/L Total Protein 7.6 (6.0-8.3) gm/dl Albumin 4.0 (3.4-5.0) gm/dl Intake and Output 01/22/23 01/23/23 01/23/23 22:59 06:59 14:59 Intake Total 335.5 / 2113.0 977.5 / 2113.0 240 / 240 Output Total 1500 / 2200 700 / 2200 Balance -1164.5 / -87.0 277.5 / -87.0 240 / 240 Intake: IV 335.5 / 1933.0 797.5 / 1933.0 Magnesium Sulfate / D5w 1 gm In 197.5 / 197.5 100 ml @ 50 mls/hr IV Q2H TOD Rx#:[id number] Piperacillin/Tazobactam 4.5 gm 100 / 200 100 / 200 In Dextrose 5% Mini-B 100 ml @ 25 mls/hr IV Q8H TOD Rx#: [id number] Potassium Acetate/Nss 10 meq In 185.5 / 185.5 105 ml @ 105 mls/hr IV Q1H TOD Rx#:[id number] Sodium Chloride 0.9% 500 ml @ 500 / 500 500 mls/hr IV .Q1H TOD Rx#: [id number] cefTRIAXone SODIUM 2,000 mg In 50 / 50 Dextrose 5 % Mini-B 50 ml @ 100 mls/hr IV NOW STA Rx#:[id number] Oral 180 / 180 240 / 240 Output: Urine Amount (Catheter) 1500 / 2200 700 / 2200 Soares/Indwelling 1500 / 2200 700 / 2200 Other: Weight 133.5 kg 133.5 kg Weight Measurement Method Standing Scale Diagnostic Findings Chest x-ray as interpreted by the radiologist revealed cardiomegaly with mild pulmonary edema, with multifocal airspace opacities CTA of the chest as interpreted by the radiologist showed no evidence of PE, no acute abnormality. + Pleural plaques and atelectasis versus scarring Head CT with no acute findings. Venous duplex negative for superficial venous thrombosis and DVT.
--- NOTE | 2023-01-23 15:11 | Hospitalist Progress Note ---
Date of Service January 23, 2023 Assessment & Plan (1) Sepsis: (2) Acute cystitis without hematuria: (3) Acute on chronic HFrEF (heart failure with reduced ejection fraction): (4) HTN (hypertension): (5) NSVT (nonsustained ventricular tachycardia): (6) ASHLEY (obstructive sleep apnea): (7) Hypothyroidism: (8) Diabetes mellitus, type II: Plan Mr. Parham is a 77 year old gentleman with past medical history notable for permanent atrial fibrillation, HFmrEF, DMTII, hypothyroidism who is admitted for concern for acute heart failure exacerbation iso of possible infection. Presented with severe weakness and tired #Sepsis secondary to multifocal pneumonia #Acute cystitis,urinalysis showing pinpoint growth #BPH -sepsis criteria met by HR(despite a fib), WBC, infection, and lactic acidosis -Hypertensive, monitor volume status-encourage PO intake -Lactate improved with initial abx, 3--> 2.4 -Received intravenous vancomycin and Zosyn later on vancomycin was discontinued -Has been on Zosyn now and feeling a lot better #Acute on HFmrEF (EF 45% 08/05/2022) #Obstructive Coronary Artery Disease s/p DANIELA Lcx/RCA #Hypertension #HLD Home regimen: Metoprolol XL 150mg BID, Furosemide 20mg prn (2-3 x weekly) Declined statin/zetia/PCSK9 historically Trop negative, BNP 253 Minimal congestion on chest x-ray Received intravenous Lasix on admission Furosemide is on hold now #NSVT -discontinue amiodarone -Resume home metoprolol and the dose was increased as per cylindrical mixer -Cardiology consult -appreciate input and recommendation -EKG shows paced rhythm with PACs and no more ventricular tachycardia -No further investigation as per cardiology #Permanent Atrial Fibrilliation -Continue metoprolol 150mg BID -Continue Warfarin -INR remains therapeutic at 2.4 #Generalized weakness -likely related to ongoing infectious process, treat above -CT head negative -PT/OT ordered #Asymmetric lower extremity edema -+DDimer, INR within range, reports compliance -CTA - and Dopplers negative -CTM #DMTII A1C On Metformin 1000mg BID and tresiba 20U qhs (dose not use semaglutide reportedly) -Continue glargine 20 U qhs and SSI #Hypothyroidism -Continue synthroid 150mcg #ASHLEY #Pulm Hypertension Noncompliant with CPAP, refuses trial DVT Warfarin GI/Bowel Regimen prn Lytes: replace prn, keep K >4, M >3, phos >3 iso multiple cardiac comorbidities He wants to go home and we will likely discharge tomorrow Admission and Anticipated Discharge Date Admission Date: January 22, 2023 Subjective 01/23/2023 The patient was seen and examined in medical telemetry unit He has been feeling better and denies any chest pain, palpitation or shortness of breath He did did not have any other symptoms He wants to go home Review of Systems Review of Systems: All systems reviewed and are unremarkable except as noted below Physical Exam Physical Exam: Lying in bed comfortably Constitutional: well nourished; no acute distress Eyes: PERRL, conjunctivae normal, anicteric sclerae ENMT: external ear and nose normal, oropharynx normal Neck: trachea midline, no thyromegaly Respiratory: no respiratory distress Auscultation: + diminished lung sounds and + crackles (Minimal bibasilar crackles) Cardiovascular: Rate/Rhythm: regular rate and regular rhythm; not tachycardic Heart Sounds: normal S1 and normal S2; no murmur Extremities: no edema Gastrointestinal (Abdomen): Inspection/Auscultation: normal bowel sounds; abdomen not distended Percussion/Palpation: abdomen soft; abdomen nontender Musculoskeletal: No acute arthritis involving any joint Neurologic: normal touch/pain/proprioception and moves all extremities; no focal motor deficits Psychiatric: A+Ox3, euthymic affect Lymphatic: no cervical or axillary lymphadenopathy Results & Data Results & Data Vital Signs (Past 12 Hours) Vital Signs Temp Pulse Pulse Resp BP Pulse Ox O2 Del Method 01/23/23 12:10 36.5 C 98 H 18 143/95 H 96 Room Air 01/23/23 07:45 36.7 C 97 H 18 147/84 H 93 Room Air 01/23/23 06:00 81 01/23/23 05:30 110/66 01/23/23 04:06 80 18 95/55 L 96 Room Air 01/23/23 03:24 36.9 C 87 18 87/54 L 93 Room Air Laboratory Results Short CBC 01/22/23 01/23/23 01/23/23 Range/Units 14:40 01:17 05:28 WBC 13.73 H 16.29 H 15.37 H (4.8-10.8) K/ul Hgb 12.5 L 11.9 L 11.4 L (14.0-18.0) g/dl Hct 36.2 L 34.3 L 32.9 L (42.0-52.0) % Plt Count 144 132 123 L (130-400) K/uL BMP 01/22/23 01/23/23 01/23/23 14:40 01:17 05:28 Sodium 137 136 137 Potassium 3.4 L 4.1 D 3.9 Chloride 104 103 105 Carbon Dioxide 24 26 26 BUN 13 13 13 Creatinine 0.94 1.10 1.01 Glucose 180 H 157 H 126 H Calcium 8.6 8.5 L 8.4 L Cardiac Enzymes 01/23/23 Range/Units 01:17 Total Creatine Kinase 119 (30-223) U/L Liver Function 01/22/23 Range/Units 14:40 Total Bilirubin 0.9 (0.2-1.0) mg/dl AST 20 (13-39) U/L ALT 15 (7-52) U/L Alkaline Phosphatase 45 (34-104) U/L Albumin 4.0 (3.4-5.0) gm/dl Urine 01/22/23 Range/Units Unknown Urine Color Yellow Urine Appearance Clear (Clear) Urine pH 7.0 (4.5-7.5) Ur Specific [place] 1.013 (1.000-1.030) Urine Protein Negative (Negative) Urine Glucose (UA) Negative (Negative) Medications Administered Current Inpatient Medications Acetaminophen (Acetaminophen 325 Mg Tab) 650 mg PO Q4H PRN PRN Reason: Pain or Fever Stop: 02/21/23 19:26 Last Admin: 01/23/23 02:51 Dose: 650 mg Aspirin (Aspirin 81 Mg Ectab) 81 [facility] [place] Stop: 02/22/23 08:59 Last Admin: 01/23/23 09:57 Dose: 81 mg Dextrose (Dextrose 50% 50 Ml Syringe) 25 - 50 ml IV UD PRN; Protocol PRN Reason: Hypoglycemia Protocol Stop: 02/21/23 19:26 Glucagon (Glucagon For Inj 1 Mg Vial) 1 mg SQ UD PRN; Protocol PRN Reason: Hypoglycemia Protocol Stop: 02/21/23 19:26 Glucose (Glucose 10 Tab/Tube) 4 - 8 tab PO UD PRN; Protocol PRN Reason: Hypoglycemia Treatment Stop: 02/21/23 19:26 Glucose (Glucose 40% Gel 15 Gm Tube) 15 - 30 gm PO UD PRN; Protocol PRN Reason: Hypoglycemia Protocol Stop: 02/21/23 19:26 Piperacillin Sod/Tazobactam (Sod 4.5 gm/ Dextrose) 100 mls @ 25 mls/hr IV Q8H TOD; Protocol Stop: 01/25/23 02:59 Last Admin: 01/23/23 11:18 Dose: 25 mls/hr Insulin Aspart (Insulin Aspart Per Unit Charge) 0 units SC ACHS [facility] Stop: 02/21/23 20:59 Last Admin: 01/23/23 13:15 Dose: 2 units Insulin Glargine (Lantus Per Unit Charge) 20 units SQ QPM [facility] Stop: 02/21/23 20:59 Last Admin: 01/22/23 22:23 Dose: 20 units Levothyroxine Sodium (Levothyroxine Sodium 150 Mcg Tablet) 150 mcg PO DAILYBB [facility] Stop: 02/22/23 06:29 Last Admin: 01/23/23 05:32 Dose: 150 mcg Metoprolol Succinate (Metoprolol Succ 50mg Ext Rel Tab) 200 mg PO QAM [facility] Stop: 02/23/23 08:59 Metoprolol Succinate (Metoprolol Succ 50mg Ext Rel Tab) 150 mg PO QPM [facility] Stop: 02/22/23 20:59 Miscellaneous (Carbohydrates For Hypoglycemia ) 15 - 30 gm PO UD PRN PRN Reason: Hypoglycemia Protocol Stop: 02/21/23 19:26 Nitroglycerin (Nitroglycerin Sl 0.4 Mg/Tab Tab) 0.4 mg SL Q5M PRN PRN Reason: Chest Pain Stop: 02/21/23 19:26 Phenazopyridine HCl (Phenazopyridine Hcl 200 Mg Tab) 200 mg PO TID PRN PRN Reason: Dysuria Stop: 01/25/23 21:39 Last Admin: 01/23/23 13:26 Dose: 200 mg Polyethylene Glycol (Polyethylene (Miralax) 17 Gm Pack) 17 gm PO DAILY PRN PRN Reason: Constipation Stop: 02/21/23 19:26 Tamsulosin HCl (Tamsulosin Hcl 0.4 Mg Cap) 0.4 mg PO HS [facility] Stop: 02/22/23 20:59 Warfarin Sodium (Warfarin Sod 5 Mg Tab) 5 mg PO [id number] [facility] Stop: 02/21/23 20:59 Last Admin: 01/22/23 22:24 Dose: 5 mg Warfarin Sodium (Warfarin Sod 10 Mg Tab) 10 mg PO [id number] [facility] Stop: 02/22/23 15:59
[2023-01-23] MEDS: WARFARIN SOD 10 MG TAB PO SCH (16:37)
[2023-01-23] MEDS: LANTUS PER UNIT CHARGE SQ SCH (20:52)
[2023-01-23] MEDS: TAMSULOSIN HCL 0.4 MG CAP PO SCH (20:53)
[2023-01-24] MEDS: PIPERACILLIN/TAZOBACTAM 4.5 GM in DEXTROSE 5% MINI-B 100 ML IV SCH (02:51)
[2023-01-24] MEDS: LEVOTHYROXINE SODIUM 150 MCG TABLET PO SCH (05:47)
[2023-01-24 06:50] LABS: Basophils # (auto) 0.03 K/uL (0.00-0.20); Basophils % (auto) 0.3 %; Eosinophils # (auto) 0.03 K/uL (0.00-0.50); Eosinophils % (auto) 0.3 %; Hematocrit (blood only) 33.3 % (42.0-52.0); Hemoglobin 11.6 g/dl (14.0-18.0); Immature Granulocytes # (auto) 0.17 K/uL (0.01-0.20); Immature Granulocytes % (auto) 1.4 %; Lymphocytes # (auto) 0.96 K/uL (1.20-3.40); Lymphocytes % (auto) 8.2 %; Mean Corpuscular Hemoglobin 33.6 pg (25.0-34.0); Mean Corpuscular Hgb Conc 34.8 g/dL (32.0-36.0); Mean Corpuscular Volume 96.5 fL (80.0-100.0); Mean Platelet Volume 11.3 fL (9.4-12.4); Monocytes # (auto) 0.59 K/uL (0.11-0.59); Neutrophils # (auto) 9.99 K/uL (1.40-6.50); Neutrophils % (auto) 84.8 %; Platelet Count 133 K/uL (130-400); RDW Coefficient of Variation 13.2 % (11.5-14.5); RDW Standard Deviation 47.3 fL (36.4-46.3); Red Blood Count 3.45 M/uL (4.70-6.10); White Blood Count 11.77 K/ul (4.8-10.8)
[2023-01-24 07:10] LABS: BUN Creatinine Ratio 13.4 (10-20); Calcium 8.7 mg/dl (8.6-10.3); Potassium 3.8 mmol/L (3.5-5.1)
[2023-01-24 07:29] LABS: Troponin I High Sensitivity 15.3 pg/ml (0-20)
[2023-01-24 07:30] LABS: INR 2.1 (0.9-1.1); Prothrombin Time 22.2 Seconds (9.0-12.0)
[2023-01-24] MEDS: INSULIN ASPART PER UNIT CHARGE SC SCH ×4 (09:00→20:32)
[2023-01-24] MEDS: METOPROLOL SUCC 50MG EXT REL TAB PO SCH ×2 (09:01→20:23)
[2023-01-24] MEDS: ASPIRIN 81 MG ECTAB PO SCH (09:02)
[2023-01-24] MEDS: DICLOFENAC SOD 1% GEL 100 GM TUBE EXT SCH ×2 (09:13→20:24)
--- NOTE | 2023-01-24 12:09 | Hospitalist Progress Note ---
Date of Service January 24, 2023 Assessment & Plan (1) Sepsis: (2) Acute cystitis without hematuria: (3) Acute on chronic HFrEF (heart failure with reduced ejection fraction): (4) HTN (hypertension): (5) NSVT (nonsustained ventricular tachycardia): (6) ASHLEY (obstructive sleep apnea): (7) Hypothyroidism: (8) Diabetes mellitus, type II: Plan Mr. Parham is a 77 year old gentleman with past medical history notable for permanent atrial fibrillation, HFmrEF, DMTII, hypothyroidism who is admitted for concern for acute heart failure exacerbation iso of possible infection. Presented with severe weakness and tired #Sepsis secondary to multifocal pneumonia #Acute cystitis,urinalysis showing pinpoint growth #BPH -sepsis criteria met by HR(despite a fib), WBC, infection, and lactic acidosis -Hypertensive, monitor volume status-encourage PO intake -Lactate improved with initial abx, 3--> 2.4 -Received intravenous vancomycin and Zosyn later on vancomycin was discontinued -Has been on Zosyn now and feeling a lot better -Clinically much better without any fever and or chills -We will give her oral Keflex and doxycycline to cover multifocal pneumonia for a total of 10 days #Acute on HFmrEF (EF 45% 08/05/2022) #Obstructive Coronary Artery Disease s/p DANIELA Lcx/RCA #Hypertension #HLD Home regimen: Metoprolol XL 150mg BID, Furosemide 20mg prn (2-3 x weekly) Declined statin/zetia/PCSK9 historically Trop negative, BNP 253 Minimal congestion on chest x-ray Received intravenous Lasix on admission Furosemide is on hold now We will continue with his home medications as before #NSVT -discontinue amiodarone -Resume home metoprolol and the dose was increased as per motor assembler -Cardiology consult -appreciate input and recommendation -EKG shows paced rhythm with PACs and no more ventricular tachycardia -No further investigation as per cardiology -Cardiac symptoms are stable #Permanent Atrial Fibrilliation -Continue metoprolol 150mg BID -Continue Warfarin -INR remains therapeutic at 2.4 -Need to follow-up with coagulation clinic as he will be taking antibiotic #Generalized weakness -likely related to ongoing infectious process, treat above -CT head negative -PT/OT ordered #Asymmetric lower extremity edema -+DDimer, INR within range, reports compliance -CTA - and Dopplers negative -CTM #DMTII A1C On Metformin 1000mg BID and tresiba 20U qhs (dose not use semaglutide reportedly) -Continue glargine 20 U qhs and SSI #Hypothyroidism -Continue synthroid 150mcg #ASHLEY #Pulm Hypertension Noncompliant with CPAP, refuses trial DVT Warfarin GI/Bowel Regimen prn Lytes: replace prn, keep K >4, M >3, phos >3 iso multiple cardiac comorbidities He wants to go home this afternoon and will be discharged Admission and Anticipated Discharge Date Admission Date: January 22, 2023 Subjective 01/23/2023 The patient was seen and examined in medical telemetry unit He has been feeling better and denies any chest pain, palpitation or shortness of breath He did did not have any other symptoms He wants to go home 01/24/2023 The patient was seen and examined in medical telemetry unit He does not have any more chest pain and her palpitation Denies any urinary symptoms and denies any cough, phlegm or shortness of breath He will be discharged home this afternoon Review of Systems Review of Systems: All systems reviewed and are unremarkable except as noted below Physical Exam Physical Exam: Lying in bed comfortably Constitutional: well nourished; no acute distress Eyes: PERRL, conjunctivae normal, anicteric sclerae ENMT: external ear and nose normal, oropharynx normal Neck: trachea midline, no thyromegaly Respiratory: no respiratory distress Auscultation: + diminished lung sounds and + crackles (Minimal bibasilar crackles) Cardiovascular: Rate/Rhythm: regular rate and regular rhythm; not tachycardic Heart Sounds: normal S1 and normal S2; no murmur Extremities: no edema Gastrointestinal (Abdomen): Inspection/Auscultation: normal bowel sounds; abdomen not distended Percussion/Palpation: abdomen soft; abdomen nontender Neurologic: normal touch/pain/proprioception and moves all extremities; no focal motor deficits Psychiatric: A+Ox3, euthymic affect Lymphatic: no cervical or axillary lymphadenopathy Results & Data Results & Data Vital Signs (Past 12 Hours) Vital Signs Temp Pulse Pulse Resp BP Pulse Ox O2 Del Method 01/24/23 11:31 37.1 C 107 H 18 154/106 H 91 Room Air 01/24/23 07:20 36.9 C 84 16 119/70 94 Room Air 01/24/23 06:00 91 H 01/24/23 02:48 95 Room Air 01/24/23 02:34 36.9 C 83 18 108/66 94 Room Air 01/24/23 00:40 105 H Laboratory Results Short CBC 01/24/23 Range/Units 06:24 WBC 11.77 H (4.8-10.8) K/ul Hgb 11.6 L (14.0-18.0) g/dl Hct 33.3 L (42.0-52.0) % Plt Count 133 (130-400) K/uL BMP 01/24/23 06:24 Sodium 135 L Potassium 3.8 Chloride 102 Carbon Dioxide 27 BUN 15 Creatinine 1.12 Glucose 133 H Calcium 8.7 Medications Administered Current Inpatient Medications Acetaminophen (Acetaminophen 325 Mg Tab) 650 mg PO Q4H PRN PRN Reason: Pain or Fever Stop: 02/21/23 19:26 Last Admin: 01/23/23 20:54 Dose: 650 mg Aspirin (Aspirin 81 Mg Ectab) 81 mg PO QAM [facility] Stop: 02/22/23 08:59 Last Admin: 01/24/23 09:02 Dose: 81 mg Cephalexin HCl (Cephalexin 500 Mg Cap) 500 mg PO TID [facility]; Protocol Stop: 01/31/23 13:59 Dextrose (Dextrose 50% 50 Ml Syringe) 25 - 50 ml IV UD PRN; Protocol PRN Reason: Hypoglycemia Protocol Stop: 02/21/23 19:26 Diclofenac Sodium (Diclofenac Sod 1% Gel 100 Gm Tube) 2 gm EXT BID [facility]; Protocol Stop: 02/23/23 08:59 Last Admin: 01/24/23 09:13 Dose: 2 gm Doxycycline Hyclate (Doxycycline Hyclate 100 Mg Cap) 100 mg PO BID [facility] Stop: 01/31/23 10:59 Glucagon (Glucagon For Inj 1 Mg Vial) 1 mg SQ UD PRN; Protocol PRN Reason: Hypoglycemia Protocol Stop: 02/21/23 19:26 Glucose (Glucose 10 Tab/Tube) 4 - 8 tab PO UD PRN; Protocol PRN Reason: Hypoglycemia Treatment Stop: 02/21/23 19:26 Glucose (Glucose 40% Gel 15 Gm Tube) 15 - 30 gm PO UD PRN; Protocol PRN Reason: Hypoglycemia Protocol Stop: 02/21/23 19:26 Insulin Aspart (Insulin Aspart Per Unit Charge) 0 units SC [facility] Stop: 02/21/23 20:59 Last Admin: 01/24/23 09:00 Dose: 3 units Insulin Glargine (Lantus Per Unit Charge) 20 units SQ QPM [facility] Stop: 02/21/23 20:59 Last Admin: 01/23/23 20:52 Dose: 20 units Levothyroxine Sodium (Levothyroxine Sodium 150 Mcg Tablet) 150 mcg PO DAILYBB [facility] Stop: 02/22/23 06:29 Last Admin: 01/24/23 05:47 Dose: 150 mcg Metoprolol Succinate (Metoprolol Succ 50mg Ext Rel Tab) 200 mg PO QAM [facility] Stop: 02/23/23 08:59 Last Admin: 01/24/23 09:01 Dose: 200 mg Metoprolol Succinate (Metoprolol Succ 50mg Ext Rel Tab) 150 mg PO QPM [facility] Stop: 02/22/23 20:59 Last Admin: 01/23/23 20:53 Dose: 150 mg Miscellaneous (Carbohydrates For Hypoglycemia ) 15 - 30 gm PO UD PRN PRN Reason: Hypoglycemia Protocol Stop: 02/21/23 19:26 Nitroglycerin (Nitroglycerin Sl 0.4 Mg/Tab Tab) 0.4 mg SL Q5M PRN PRN Reason: Chest Pain Stop: 02/21/23 19:26 Phenazopyridine HCl (Phenazopyridine Hcl 200 Mg Tab) 200 mg PO TID PRN PRN Reason: Dysuria Stop: 01/25/23 21:39 Last Admin: 01/23/23 20:53 Dose: 200 mg Polyethylene Glycol (Polyethylene (Miralax) 17 Gm Pack) 17 gm PO DAILY PRN PRN Reason: Constipation Stop: 02/21/23 19:26 Last Admin: 01/23/23 20:54 Dose: 17 gm Tamsulosin HCl (Tamsulosin Hcl 0.4 Mg Cap) 0.4 mg PO HS [facility] Stop: 02/22/23 20:59 Last Admin: 01/23/23 20:53 Dose: 0.4 mg Warfarin Sodium (Warfarin Sod 5 Mg Tab) 5 mg PO [email or web address] [facility] Stop: 02/21/23 20:59 Last Admin: 01/22/23 22:24 Dose: 5 mg Warfarin Sodium (Warfarin Sod 10 Mg Tab) 10 mg PO [email or web address] [facility] Stop: 02/22/23 15:59 Last Admin: 01/23/23 16:37 Dose: 10 mg
[2023-01-24] MEDS: cephALEXin 500 MG CAP PO SCH ×2 (12:59→20:24)
[2023-01-24] MEDS: DOXYCYCLINE HYCLATE 100 MG CAP PO SCH ×2 (12:59→20:24)
--- NOTE | 2023-01-24 13:49 | Cardiology Progress Note ---
Date of Service January 24, 2023 Assessment & Plan Admission and Anticipated Discharge Date Admission Date: January 22, 2023 Supervising Physician Co-Signing Physician Notes 77 yo man presenting with wide complex rhythm * Chronic persistent atrial fibrillation * Wide-complex rhythm- possible ventricular pacing * Please check ECHOcardiogram - may check as an outpt * Please check TSH * K+ goal 4.5-5 * Mag goal >2 * on Coumadin - INR 2.1 -Continue Toprol XL 150 mg po BID -Continue warfarin for stroke prophylaxis. -Monitor INR given treatment with IV Zosyn. Plans to have patient follow up in Cardiology Clinic In clinic: * ECHO * TSH * K+ supplementation * ASHLEY evaluation * Check ProBNP - may need low-dose diuretic * SBP - elevated * Goal SBP 120 mmHg * Consider Lisinopril 10 mg po per day * Patient may benefit from Afib ablation consideration * Check Lipids Gerardo Fontana Subjective Events overnight: * None reported * No chest pain or dyspnea Review of Systems Review of Systems: All systems reviewed & are unremarkable except as noted in HPI & below Physical Exam Physical Exam: Obese JVP 12 cmH20 S1S2 2/6 systolic murmur CTA B Trace LE edema Results & Data Vital Signs (Past 12 Hours) Vital Signs Temp Pulse Pulse Resp BP Pulse Ox O2 Del Method 01/24/23 11:31 37.1 C 107 H 18 154/106 H 91 Room Air 01/24/23 07:20 36.9 C 84 16 119/70 94 Room Air 01/24/23 06:00 91 H 01/24/23 02:48 95 Room Air 01/24/23 02:34 36.9 C 83 18 108/66 94 Room Air Laboratory Results Cardiac Enzymes 01/24/23 Range/Units 06:24 Troponin I High Sens 15.3 D (0-20) pg/ml Coagulation 01/24/23 Range/Units 06:24 PT 22.2 H (9.0-12.0) Seconds CBC 01/24/23 Range/Units 06:24 WBC 11.77 H (4.8-10.8) K/ul RBC 3.45 L (4.70-6.10) M/uL Hgb 11.6 L (14.0-18.0) g/dl Hct 33.3 L (42.0-52.0) % Plt Count 133 (130-400) K/uL Neut # (Auto) 9.99 H (1.40-6.50) K/uL Lymph # (Auto) 0.96 L (1.20-3.40) K/uL [place] # (Auto) 0.59 (0.11-0.59) K/uL Eos # (Auto) 0.03 (0.00-0.50) K/uL Baso # (Auto) 0.03 (0.00-0.20) K/uL Comprehensive Metabolic Panel 01/24/23 Range/Units 06:24 Sodium 135 L (136-145) mmol/L Potassium 3.8 (3.5-5.1) mmol/L Chloride 102 (98-107) mmol/L Carbon Dioxide 27 (21-32) mmol/L BUN 15 (6-23) mg/dl Creatinine 1.12 (0.6-1.4) mg/dl Glucose 133 H (70-99(Fasting)) mg/dl Calcium 8.7 (8.6-10.3) mg/dl Intake and Output 01/23/23 01/24/23 01/24/23 22:59 06:59 14:59 Intake Total 540 / 1200 180 / 1200 100 / 100 Output Total 890 / 2340 1450 / 2340 Balance -350 / -1140 -1270 / -1140 100 / 100 Intake: IV 100 / 200 100 / 200 100 / 100 Piperacillin/Tazobactam 4.5 gm 100 / 200 100 / 200 100 / 100 In Dextrose 5% Mini-B 100 ml @ 25 mls/hr IV Q8H [facility] Rx#: [id number] Oral 440 / 1000 80 / 1000 Output: Urine / 1989 1450 / 1990 Urine Amount (Catheter) 350 / 350 Ba/Indwelling 350 / 350 Other: # Unmeasured Voids 1 Weight 132.8 kg Medications Administered Current Inpatient Medications Acetaminophen (Acetaminophen 325 Mg Tab) 650 mg PO Q4H PRN PRN Reason: Pain or Fever Stop: 02/21/23 19:26 Last Admin: 01/23/23 20:54 Dose: 650 mg Aspirin (Aspirin 81 Mg Ectab) [facility] [place] Stop: 02/22/23 08:59 Last Admin: 01/24/23 09:02 Dose: 81 mg Cephalexin HCl (Cephalexin 500 Mg Cap) 500 mg PO TID [facility]; Protocol Stop: 01/31/23 13:59 Last Admin: 01/24/23 12:59 Dose: 500 mg Dextrose (Dextrose 50% 50 Ml Syringe) 25 - 50 ml IV UD PRN; Protocol PRN Reason: Hypoglycemia Protocol Stop: 02/21/23 19:26 Diclofenac Sodium (Diclofenac Sod 1% Gel 100 Gm Tube) 2 gm EXT BID [facility]; Protocol Stop: 02/23/23 08:59 Last Admin: 01/24/23 09:13 Dose: 2 gm Doxycycline Hyclate (Doxycycline Hyclate 100 Mg Cap) 100 mg PO BID [facility] Stop: 01/31/23 10:59 Last Admin: 01/24/23 12:59 Dose: 100 mg Glucagon (Glucagon For Inj 1 Mg Vial) 1 mg SQ UD PRN; Protocol PRN Reason: Hypoglycemia Protocol Stop: 02/21/23 19:26 Glucose (Glucose 10 Tab/Tube) 4 - 8 tab PO UD PRN; Protocol PRN Reason: Hypoglycemia Treatment Stop: 02/21/23 19:26 Glucose (Glucose 40% Gel 15 Gm Tube) 15 - 30 gm PO UD PRN; Protocol PRN Reason: Hypoglycemia Protocol Stop: 02/21/23 19:26 Insulin Aspart (Insulin Aspart Per Unit Charge) 0 units SC ACHS [facility] Stop: 02/21/23 20:59 Last Admin: 01/24/23 12:57 Dose: 3 units Insulin Glargine (Lantus Per Unit Charge) 20 units SQ QPM [facility] Stop: 02/21/23 20:59 Last Admin: 01/23/23 20:52 Dose: 20 units Levothyroxine Sodium (Levothyroxine Sodium 150 Mcg Tablet) 150 mcg PO DAILYBB [facility] Stop: 02/22/23 06:29 Last Admin: 01/24/23 05:47 Dose: 150 mcg Metoprolol Succinate (Metoprolol Succ 50mg Ext Rel Tab) 200 mg PO QAM [facility] Stop: 02/23/23 08:59 Last Admin: 01/24/23 09:01 Dose: 200 mg Metoprolol Succinate (Metoprolol Succ 50mg Ext Rel Tab) 150 mg PO QPM [facility] Stop: 02/22/23 20:59 Last Admin: 01/23/23 20:53 Dose: 150 mg Miscellaneous (Carbohydrates For Hypoglycemia ) 15 - 30 gm PO UD PRN PRN Reason: Hypoglycemia Protocol Stop: 02/21/23 19:26 Nitroglycerin (Nitroglycerin Sl 0.4 Mg/Tab Tab) 0.4 mg SL Q5M PRN PRN Reason: Chest Pain Stop: 02/21/23 19:26 Phenazopyridine HCl (Phenazopyridine Hcl 200 Mg Tab) 200 mg PO TID PRN PRN Reason: Dysuria Stop: 01/25/23 21:39 Last Admin: 01/23/23 20:53 Dose: 200 mg Polyethylene Glycol (Polyethylene (Miralax) 17 Gm Pack) 17 gm PO DAILY PRN PRN Reason: Constipation Stop: 02/21/23 19:26 Last Admin: 01/23/23 20:54 Dose: 17 gm Tamsulosin HCl (Tamsulosin Hcl 0.4 Mg Cap) 0.4 mg PO [facility] Stop: 02/22/23 20:59 Last Admin: 01/23/23 20:53 Dose: 0.4 mg Warfarin Sodium (Warfarin Sod 5 Mg Tab) 5 mg PO [email or web address] [facility] Stop: 02/21/23 20:59 Last Admin: 01/22/23 22:24 Dose: 5 mg Warfarin Sodium (Warfarin Sod 10 Mg Tab) 10 mg PO [email or web address] [facility] Stop: 02/22/23 15:59 Last Admin: 01/23/23 16:37 Dose: 10 mg
[2023-01-24] MEDS ORDERED: PROMETHAZINE HCL 6.25 MG in SODIUM CHLORIDE 0.9% 50 ML IV STA (14:19)
[2023-01-24] MEDS: CALCIUM CARBONATE 500 MG CHEWABLE TAB PO PRN (16:34)
[2023-01-24] MEDS: WARFARIN SOD 10 MG TAB PO SCH (18:19)
[2023-01-24] MEDS: ACETAMINOPHEN 325 MG TAB PO PRN (18:28)
[2023-01-24] MEDS: PHENAZOPYRIDINE HCL 200 MG TAB PO PRN (20:23)
[2023-01-24] MEDS: TAMSULOSIN HCL 0.4 MG CAP PO SCH (20:23)
[2023-01-24] MEDS: LANTUS PER UNIT CHARGE SQ SCH (20:32)
[2023-01-25] MEDS: CALCIUM CARBONATE 500 MG CHEWABLE TAB PO PRN (03:51)
[2023-01-25] MEDS: ACETAMINOPHEN 325 MG TAB PO PRN (04:52)
[2023-01-25] MEDS: LEVOTHYROXINE SODIUM 150 MCG TABLET PO SCH (04:52)
--- NOTE | 2023-01-25 06:21 | Electrocardiogram Report ---
Test Reason : Blood Pressure : / mmHG Vent. Rate : 097 BPM Atrial Rate : 000 BPM P-R Int : 000 ms QRS Dur : 102 ms QT Int : 346 ms P-R-T Axes : 000 -33 104 degrees QTc Int : 439 ms Atrial fibrillation with premature ventricular or aberrantly conducted complexes Left axis deviation Moderate voltage criteria for LVH, may be normal variant ( R in aVL , Dorian product ) Abnormal QRS-T angle, consider primary T wave abnormality Abnormal ECG When compared with ECG of 13-DEC-2021 13:15, T wave amplitude has decreased in Inferior leads Confirmed by Kenny Rodriguez ([id number]) on 01/25/2023 6:21:19 AM Referred By: REFERRED SELF Confirmed By:Kenny Rodriguez
--- NOTE | 2023-01-25 06:42 | Electrocardiogram Report ---
Test Reason : Blood Pressure : / mmHG Vent. Rate : 072 BPM Atrial Rate : 056 BPM P-R Int : 000 ms QRS Dur : 104 ms QT Int : 438 ms P-R-T Axes : 000 -48 049 degrees QTc Int : 479 ms Atrial fibrillation with occasional ventricular-paced complexes Left anterior fascicular block Minimal voltage criteria for LVH, may be normal variant Abnormal ECG When compared with ECG of 22-JAN-2023 14:19, (unconfirmed) HR has decreased Confirmed by Kenny Rodriguez ([id number]) on 01/25/2023 6:42:21 AM Referred By: REFERRED SELF Confirmed By:Kenny Rodriguez
--- NOTE | 2023-01-25 07:44 | Cardiology Progress Note ---
Date of Service January 25, 2023 Assessment & Plan Admission and Anticipated Discharge Date Admission Date: January 22, 2023 Supervising Physician Co-Signing Physician Notes 77 yo man presenting with wide complex rhythm * Chronic persistent atrial fibrillation * Wide-complex rhythm- possible ventricular pacing * Please check ECHOcardiogram - may check as an outpt * Please check TSH * K+ goal 4.5-5 * Mag goal >2 * on Coumadin - INR 2.1 -Continue Toprol XL 150 mg po BID -Continue warfarin for stroke prophylaxis. -Monitor INR given treatment with IV Zosyn. Plans to have patient follow up in Cardiology Clinic In clinic: * ECHO * TSH * K+ supplementation * ASHLEY evaluation * Check ProBNP - may need low-dose diuretic * SBP - elevated * Goal SBP 120 mmHg * Consider Lisinopril 2.5 mg po per day * Patient may benefit from Afib ablation consideration * Check Lipids * Please call back with any additional questions Gerardo Fontana Subjective Events overnight: None - HR hovering near 100 BPM Subjective - No complaints Review of Systems Review of Systems: All systems reviewed & are unremarkable except as noted in HPI & below Physical Exam Physical Exam: Obese JVP 12 cmH20 S1S2 2/6 systolic murmur CTA B Trace LE edema Results & Data Vital Signs (Past 12 Hours) Vital Signs Temp Pulse Pulse Pulse Resp BP Pulse Ox 01/25/23 03:22 100 H 91 01/25/23 03:19 37.0 C 117 H 18 157/91 H 90 01/24/23 23:07 36.9 C 91 H 18 128/85 92 01/24/23 22:09 93 H 01/24/23 20:27 36.7 C O2 Del Method 01/25/23 03:22 Room Air 01/25/23 03:19 Room Air 01/24/23 23:07 Room Air 01/24/23 22:09 01/24/23 20:27 Laboratory Results Cardiac Enzymes 01/25/23 Range/Units 11:25 AST 22 (13-39) U/L CBC 01/25/23 Range/Units 11:25 WBC 10.91 H (4.8-10.8) K/ul RBC 3.69 L (4.70-6.10) M/uL Hgb 12.5 L (14.0-18.0) g/dl Hct 35.4 L (42.0-52.0) % Plt Count 142 (130-400) K/uL Neut # (Auto) 8.55 H (1.40-6.50) K/uL Lymph # (Auto) 1.31 (1.20-3.40) K/uL [place] # (Auto) 0.89 H (0.11-0.59) K/uL Eos # (Auto) 0.00 (0.00-0.50) K/uL Baso # (Auto) 0.03 (0.00-0.20) K/uL Comprehensive Metabolic Panel 01/25/23 Range/Units 11:25 Sodium 132 L (136-145) mmol/L Potassium 3.8 (3.5-5.1) mmol/L Chloride 101 (98-107) mmol/L Carbon Dioxide 23 (21-32) mmol/L BUN 12 (6-23) mg/dl Creatinine 0.87 (0.6-1.4) mg/dl Glucose 132 H (70-99(Fasting)) mg/dl Calcium 9.2 (8.6-10.3) mg/dl AST 22 (13-39) U/L ALT 12 (7-52) U/L Alkaline Phosphatase 57 (34-104) U/L Total Protein 8.2 (6.0-8.3) gm/dl Albumin 4.0 (3.4-5.0) gm/dl Intake and Output 01/24/23 01/25/23 01/25/23 22:59 06:59 14:59 Intake Total 1080 / 1590.25 Output Total 302 / 2383 1831 / 2383 Balance -302 / -792.75 -751 / -792.75 Intake: Oral 1080 / 1440 Output: Urine 300 / 2380 1830 / 2380 # Bowel Movements 2 / 3 1 / 3 Other: # Unmeasured Voids 1 Weight 132.8 kg 131.7 kg Weight Measurement Method Standing Scale Medications Administered Current Inpatient Medications Acetaminophen (Acetaminophen 325 Mg Tab) 650 mg PO Q4H PRN PRN Reason: Pain or Fever Stop: 02/21/23 19:26 Last Admin: 01/25/23 04:52 Dose: 650 mg Aspirin (A[facility]in 81 Mg Ectab) [facility]: 02/22/23 08:59 Last Admin: 01/25/23 08:25 Dose: 81 mg Calcium Carbonate (Calcium Carbonate 500 Mg Chewable Tab) 500 mg PO Q6H PRN PRN Reason: Indigestion Stop: 02/23/23 15:58 Last Admin: 01/25/23 03:51 Dose: 500 mg Cephalexin HCl (Cephalexin 500 Mg Cap) 500 mg PO TID [facility]; Protocol Stop: 01/31/23 13:59 Last Admin: 01/25/23 13:38 Dose: 500 mg Dextrose (Dextrose 50% 50 Ml Syringe) 25 - 50 ml IV UD PRN; Protocol PRN Reason: Hypoglycemia Protocol Stop: 02/21/23 19:26 Diclofenac Sodium (Diclofenac Sod 1% Gel 100 Gm Tube) 2 gm EXT BID [facility]; Protocol Stop: 02/23/23 08:59 Last Admin: 01/25/23 08:25 Dose: 2 gm Doxycycline Hyclate (Doxycycline Hyclate 100 Mg Cap) 100 mg PO BID [facility] Stop: 01/31/23 10:59 Last Admin: 01/25/23 08:25 Dose: 100 mg Glucagon (Glucagon For Inj 1 Mg Vial) 1 mg SQ UD PRN; Protocol PRN Reason: Hypoglycemia Protocol Stop: 02/21/23 19:26 Glucose (Glucose 10 Tab/Tube) 4 - 8 tab PO UD PRN; Protocol PRN Reason: Hypoglycemia Treatment Stop: 02/21/23 19:26 Glucose (Glucose 40% Gel 15 Gm Tube) 15 - 30 gm PO UD PRN; Protocol PRN Reason: Hypoglycemia Protocol Stop: 02/21/23 19:26 Insulin Aspart (Insulin Aspart Per Unit Charge) 0 units SC ACHS [facility] Stop: 02/21/23 20:59 Last Admin: 01/25/23 12:56 Dose: 2 units Insulin Glargine (Lantus Per Unit Charge) 20 units SQ QPM [facility] Stop: 02/21/23 20:59 Last Admin: 01/24/23 20:32 Dose: 20 units Levothyroxine Sodium (Levothyroxine Sodium 150 Mcg Tablet) 150 mcg PO DAILYBB [facility] Stop: 02/22/23 06:29 Last Admin: 01/25/23 04:52 Dose: 150 mcg Metoprolol Succinate (Metoprolol Succ 50mg Ext Rel Tab) 200 mg PO QAM [facility] Stop: 02/23/23 08:59 Last Admin: 01/25/23 08:25 Dose: 200 mg Metoprolol Succinate (Metoprolol Succ 50mg Ext Rel Tab) 150 mg PO QPM [facility] Stop: 02/22/23 20:59 Last Admin: 01/24/23 20:23 Dose: 150 mg Miscellaneous (Carbohydrates For Hypoglycemia ) 15 - 30 gm PO UD PRN PRN Reason: Hypoglycemia Protocol Stop: 02/21/23 19:26 Nitroglycerin (Nitroglycerin Sl 0.4 Mg/Tab Tab) 0.4 mg SL Q5M PRN PRN Reason: Chest Pain Stop: 02/21/23 19:26 Phenazopyridine HCl (Phenazopyridine Hcl 200 Mg Tab) 200 mg PO TID PRN PRN Reason: Dysuria Stop: 01/25/23 21:39 Last Admin: 01/24/23 20:23 Dose: 200 mg Polyethylene Glycol (Polyethylene (Miralax) 17 Gm Pack) 17 gm PO DAILY PRN PRN Reason: Constipation Stop: 02/21/23 19:26 Last Admin: 01/23/23 20:54 Dose: 17 gm Tamsulosin HCl (Tamsulosin Hcl 0.4 Mg Cap) 0.4 mg PO HS [facility] Stop: 02/22/23 20:59 Last Admin: 01/24/23 20:23 Dose: 0.4 mg Warfarin Sodium (Warfarin Sod 5 Mg Tab) 5 mg PO [email or web address] [facility] Stop: 02/21/23 20:59 Last Admin: 01/22/23 22:24 Dose: 5 mg Warfarin Sodium (Warfarin Sod 10 Mg Tab) 10 mg PO [email or web address] [facility] Stop: 02/22/23 15:59 Last Admin: 01/24/23 18:19 Dose: 10 mg
[2023-01-25] MEDS: DICLOFENAC SOD 1% GEL 100 GM TUBE EXT SCH ×2 (08:25→20:17)
[2023-01-25] MEDS: ASPIRIN 81 MG ECTAB PO SCH (08:25)
[2023-01-25] MEDS: DOXYCYCLINE HYCLATE 100 MG CAP PO SCH ×2 (08:25→20:18)
[2023-01-25] MEDS: cephALEXin 500 MG CAP PO SCH ×3 (08:25→20:18)
[2023-01-25] MEDS: METOPROLOL SUCC 50MG EXT REL TAB PO SCH ×2 (08:25→20:18)
[2023-01-25] MEDS: INSULIN ASPART PER UNIT CHARGE SC SCH ×4 (08:55→20:17)
[2023-01-25 11:44] LABS: Basophils # (auto) 0.03 K/uL (0.00-0.20); Basophils % (auto) 0.3 %; Hematocrit (blood only) 35.4 % (42.0-52.0); Hemoglobin 12.5 g/dl (14.0-18.0); Immature Granulocytes # (auto) 0.13 K/uL (0.01-0.20); Immature Granulocytes % (auto) 1.2 %; Lymphocytes # (auto) 1.31 K/uL (1.20-3.40); Mean Corpuscular Hemoglobin 33.9 pg (25.0-34.0); Mean Corpuscular Hgb Conc 35.3 g/dL (32.0-36.0); Mean Corpuscular Volume 95.9 fL (80.0-100.0); Mean Platelet Volume 10.9 fL (9.4-12.4); Monocytes # (auto) 0.89 K/uL (0.11-0.59); Monocytes % (auto) 8.2 %; Neutrophils # (auto) 8.55 K/uL (1.40-6.50); Neutrophils % (auto) 78.3 %; Platelet Count 142 K/uL (130-400); RDW Coefficient of Variation 12.6 % (11.5-14.5); RDW Standard Deviation 44.8 fL (36.4-46.3); Red Blood Count 3.69 M/uL (4.70-6.10); White Blood Count 10.91 K/ul (4.8-10.8)
[2023-01-25 12:06] LABS: BUN Creatinine Ratio 13.8 (10-20); Bilirubin,Total 1.5 mg/dl (0.2-1.0); Calcium 9.2 mg/dl (8.6-10.3); Creatinine Clr Calc Pharmacy 101.2 ml/min; Est GFR (African American) 96.5 ml/min; Est GFR (Non-African American) 83.2 ml/min; Globulin 4.2 gm/dl (2.5-4.0); Potassium 3.8 mmol/L (3.5-5.1); Total Protein 8.2 gm/dl (6.0-8.3)
--- NOTE | 2023-01-25 13:54 | Hospitalist Progress Note ---
Date of Service January 25, 2023 Assessment & Plan (1) Sepsis: (2) Acute cystitis without hematuria: (3) Acute on chronic HFrEF (heart failure with reduced ejection fraction): (4) HTN (hypertension): (5) NSVT (nonsustained ventricular tachycardia): (6) ASHLEY (obstructive sleep apnea): (7) Hypothyroidism: (8) Diabetes mellitus, type II: Plan Mr. Parham is a 77 year old gentleman with past medical history notable for permanent atrial fibrillation, HFmrEF, DMTII, hypothyroidism who is admitted for concern for acute heart failure exacerbation iso of possible infection. Presented with severe weakness and tired #Sepsis secondary to multifocal pneumonia #Acute cystitis,urinalysis showing pinpoint growth #BPH -sepsis criteria met by HR(despite a fib), WBC, infection, and lactic acidosis -Hypertensive, monitor volume status-encourage PO intake -Lactate improved with initial abx, 3--> 2.4 -Received intravenous vancomycin and Zosyn later on vancomycin was discontinued -Has been on Zosyn now and feeling a lot better -Clinically much better without any fever and or chills -We will give her oral Keflex and doxycycline to cover multifocal pneumonia for a total of 10 days -Has had an episode of confusion yesterday with more weakness and tiredness and noted to have fever this morning -He has been feeling better but will not send him home today -Repeat blood cultures have been taken and will continue oral antibiotic for now #Acute on HFmrEF (EF 45% 08/05/2022) #Obstructive Coronary Artery Disease s/p DANIELA Lcx/RCA #Hypertension #HLD Home regimen: Metoprolol XL 150mg BID, Furosemide 20mg prn (2-3 x weekly) Declined statin/zetia/PCSK9 historically Trop negative, BNP 253 Minimal congestion on chest x-ray Received intravenous Lasix on admission Furosemide is on hold now We will continue with his home medications as before #NSVT -discontinue amiodarone -Resume home metoprolol and the dose was increased as per gray mixing operator -Cardiology consult -appreciate input and recommendation -EKG shows paced rhythm with PACs and no more ventricular tachycardia -No further investigation as per cardiology -Cardiac symptoms are stable-heart rate remains around 96 #Permanent Atrial Fibrilliation -Continue metoprolol 150mg BID -Continue Warfarin -INR remains therapeutic at 2.4 -Need to follow-up with coagulation clinic as he will be taking antibiotic -We will check INR tomorrow #Generalized weakness -likely related to ongoing infectious process, treat above -CT head negative -PT/OT ordered-has had PT and OT evaluation #Asymmetric lower extremity edema -+DDimer, INR within range, reports compliance -CTA - and Dopplers negative -CTM #DMTII A1C On Metformin 1000mg BID and tresiba 20U qhs (dose not use semaglutide reportedly) -Continue glargine 20 U qhs and SSI #Hypothyroidism -Continue synthroid 150mcg #ASHLEY #Pulm Hypertension Noncompliant with CPAP, refuses trial DVT Warfarin GI/Bowel Regimen prn Lytes: replace prn, keep K >4, M >3, phos >3 iso multiple cardiac comorbidities We will monitor for him today and possible discharge tomorrow Admission and Anticipated Discharge Date Admission Date: January 22, 2023 Subjective 01/23/2023 The patient was seen and examined in medical telemetry unit He has been feeling better and denies any chest pain, palpitation or shortness of breath He did did not have any other symptoms He wants to go home 01/24/2023 The patient was seen and examined in medical telemetry unit He does not have any more chest pain and her palpitation Denies any urinary symptoms and denies any cough, phlegm or shortness of breath He will be discharged home this afternoon 01/25/2023 The patient was seen and examined in medical telemetry unit He has been feeling much better but is still remains weak and lethargic Has had fever this morning Will not send him home today Review of Systems Review of Systems: All systems reviewed and are unremarkable except as noted below Physical Exam Physical Exam: Lying in bed comfortably Constitutional: well nourished; no acute distress Eyes: PERRL, conjunctivae normal, anicteric sclerae ENMT: external ear and nose normal, oropharynx normal Neck: trachea midline, no thyromegaly Respiratory: no respiratory distress Auscultation: + diminished lung sounds and + crackles (Minimal bibasilar crackles) Cardiovascular: Rate/Rhythm: regular rate and regular rhythm; not tachycardic Heart Sounds: normal S1 and normal S2; no murmur Extremities: no edema Gastrointestinal (Abdomen): Inspection/Auscultation: normal bowel sounds; abdomen not distended Percussion/Palpation: abdomen soft; abdomen nontender Neurologic: normal touch/pain/proprioception and moves all extremities; no focal motor deficits Psychiatric: A+Ox3, euthymic affect Lymphatic: no cervical or axillary lymphadenopathy Results & Data Results & Data Vital Signs (Past 12 Hours) Vital Signs Temp Pulse Pulse Pulse Resp BP Pulse Ox 01/25/23 11:26 37.6 C H 96 H 18 128/75 94 01/25/23 09:25 97 H 01/25/23 09:22 01/25/23 08:32 38.0 C H 110 H 20 131/87 93 01/25/23 03:22 100 H 91 01/25/23 03:19 37.0 C 117 H 18 157/91 H 90 O2 Del Method 01/25/23 11:26 Room Air 01/25/23 09:25 01/25/23 09:22 Room Air 01/25/23 08:32 Room Air 01/25/23 03:22 Room Air 01/25/23 03:19 Room Air Laboratory Results Short CBC 01/25/23 Range/Units 11:25 WBC 10.91 H (4.8-10.8) K/ul Hgb 12.5 L (14.0-18.0) g/dl Hct 35.4 L (42.0-52.0) % Plt Count 142 (130-400) K/uL BMP 01/25/23 11:25 Sodium 132 L Potassium 3.8 Chloride 101 Carbon Dioxide 23 BUN 12 Creatinine 0.87 Glucose 132 H Calcium 9.2 Liver Function 01/25/23 Range/Units 11:25 Total Bilirubin 1.5 H (0.2-1.0) mg/dl AST 22 (13-39) U/L ALT 12 (7-52) U/L Alkaline Phosphatase 57 (34-104) U/L Albumin 4.0 (3.4-5.0) gm/dl Medications Administered Current Inpatient Medications Acetaminophen (Acetaminophen 325 Mg Tab) 650 mg PO Q4H PRN PRN Reason: Pain or Fever Stop: 02/21/23 19:26 Last Admin: 01/25/23 04:52 Dose: 650 mg Aspirin (Aspirin 81 Mg Ectab) [facility] [place] Stop: 02/22/23 08:59 Last Admin: 01/25/23 08:25 Dose: 81 mg Calcium Carbonate (Calcium Carbonate 500 Mg Chewable Tab) 500 mg PO Q6H PRN PRN Reason: Indigestion Stop: 02/23/23 15:58 Last Admin: 01/25/23 03:51 Dose: 500 mg Cephalexin HCl (Cephalexin 500 Mg Cap) 500 mg PO TID [facility]; Protocol Stop: 01/31/23 13:59 Last Admin: 01/25/23 13:38 Dose: 500 mg Dextrose (Dextrose 50% 50 Ml Syringe) 25 - 50 ml IV UD PRN; Protocol PRN Reason: Hypoglycemia Protocol Stop: 02/21/23 19:26 Diclofenac Sodium (Diclofenac Sod 1% Gel 100 Gm Tube) 2 gm EXT BID [facility]; Protocol Stop: 02/23/23 08:59 Last Admin: 01/25/23 08:25 Dose: 2 gm Doxycycline Hyclate (Doxycycline Hyclate 100 Mg Cap) 100 mg PO BID [facility] Stop: 01/31/23 10:59 Last Admin: 01/25/23 08:25 Dose: 100 mg Glucagon (Glucagon For Inj 1 Mg Vial) 1 mg SQ UD PRN; Protocol PRN Reason: Hypoglycemia Protocol Stop: 02/21/23 19:26 Glucose (Glucose 10 Tab/Tube) 4 - 8 tab PO UD PRN; Protocol PRN Reason: Hypoglycemia Treatment Stop: 02/21/23 19:26 Glucose (Glucose 40% Gel 15 Gm Tube) 15 - 30 gm PO UD PRN; Protocol PRN Reason: Hypoglycemia Protocol Stop: 02/21/23 19:26 Insulin Aspart (Insulin Aspart Per Unit Charge) 0 units SC ACHS [facility] Stop: 02/21/23 20:59 Last Admin: 01/25/23 12:56 Dose: 2 units Insulin Glargine (Lantus Per Unit Charge) 20 units SQ QPM [facility] Stop: 02/21/23 20:59 Last Admin: 01/24/23 20:32 Dose: 20 units Levothyroxine Sodium (Levothyroxine Sodium 150 Mcg Tablet) 150 mcg PO DAILYBB [facility] Stop: 02/22/23 06:29 Last Admin: 01/25/23 04:52 Dose: 150 mcg Metoprolol Succinate (Metoprolol Succ 50mg Ext Rel Tab) 200 mg PO QAM [facility] Stop: 02/23/23 08:59 Last Admin: 01/25/23 08:25 Dose: 200 mg Metoprolol Succinate (Metoprolol Succ 50mg Ext Rel Tab) 150 mg PO QPM [facility] Stop: 02/22/23 20:59 Last Admin: 01/24/23 20:23 Dose: 150 mg Miscellaneous (Carbohydrates For Hypoglycemia ) 15 - 30 gm PO UD PRN PRN Reason: Hypoglycemia Protocol Stop: 02/21/23 19:26 Nitroglycerin (Nitroglycerin Sl 0.4 Mg/Tab Tab) 0.4 mg SL Q5M PRN PRN Reason: Chest Pain Stop: 02/21/23 19:26 Phenazopyridine HCl (Phenazopyridine Hcl 200 Mg Tab) 200 mg PO TID PRN PRN Reason: Dysuria Stop: 01/25/23 21:39 Last Admin: 01/24/23 20:23 Dose: 200 mg Polyethylene Glycol (Polyethylene (Miralax) 17 Gm Pack) 17 gm PO DAILY PRN PRN Reason: Constipation Stop: 02/21/23 19:26 Last Admin: 01/23/23 20:54 Dose: 17 gm Tamsulosin HCl (Tamsulosin Hcl 0.4 Mg Cap) 0.4 mg PO HS [facility] Stop: 02/22/23 20:59 Last Admin: 01/24/23 20:23 Dose: 0.4 mg Warfarin Sodium (Warfarin Sod 5 Mg Tab) 5 mg PO [email or web address] [facility] Stop: 02/21/23 20:59 Last Admin: 01/22/23 22:24 Dose: 5 mg Warfarin Sodium (Warfarin Sod 10 Mg Tab) 10 mg PO [email or web address] [facility] Stop: 02/22/23 15:59 Last Admin: 01/24/23 18:19 Dose: 10 mg
[2023-01-25] MEDS: WARFARIN SOD 10 MG TAB PO SCH (15:26)
[2023-01-25] MEDS: TAMSULOSIN HCL 0.4 MG CAP PO SCH (20:18)
[2023-01-25] MEDS: LANTUS PER UNIT CHARGE SQ SCH (20:21)
[2023-01-26] MEDS: LEVOTHYROXINE SODIUM 150 MCG TABLET PO SCH (05:51)
[2023-01-26 08:00] LABS: Basophils # (auto) 0.03 K/uL (0.00-0.20); Basophils % (auto) 0.4 %; Eosinophils # (auto) 0.03 K/uL (0.00-0.50); Eosinophils % (auto) 0.4 %; Hematocrit (blood only) 32.7 % (42.0-52.0); Hemoglobin 11.4 g/dl (14.0-18.0); Immature Granulocytes # (auto) 0.05 K/uL (0.01-0.20); Immature Granulocytes % (auto) 0.7 %; Lymphocytes # (auto) 1.39 K/uL (1.20-3.40); Mean Corpuscular Hemoglobin 33.4 pg (25.0-34.0); Mean Corpuscular Hgb Conc 34.9 g/dL (32.0-36.0); Mean Corpuscular Volume 95.9 fL (80.0-100.0); Mean Platelet Volume 10.7 fL (9.4-12.4); Monocytes # (auto) 0.86 K/uL (0.11-0.59); Monocytes % (auto) 11.8 %; Neutrophils # (auto) 4.95 K/uL (1.40-6.50); Neutrophils % (auto) 67.7 %; Platelet Count 154 K/uL (130-400); RDW Coefficient of Variation 12.7 % (11.5-14.5); RDW Standard Deviation 44.8 fL (36.4-46.3); Red Blood Count 3.41 M/uL (4.70-6.10); White Blood Count 7.31 K/ul (4.8-10.8)
[2023-01-26 08:20] LABS: BUN Creatinine Ratio 15.4 (10-20); Calcium 8.6 mg/dl (8.6-10.3); Creatinine Clr Calc Pharmacy 96.3 ml/min; Est GFR (African American) 93.9 ml/min; Potassium 3.4 mmol/L (3.5-5.1)
[2023-01-26] MEDS: METOPROLOL SUCC 50MG EXT REL TAB PO SCH (08:20)
[2023-01-26] MEDS: DICLOFENAC SOD 1% GEL 100 GM TUBE EXT SCH (08:20)
[2023-01-26] MEDS: DOXYCYCLINE HYCLATE 100 MG CAP PO SCH (08:20)
[2023-01-26] MEDS: ASPIRIN 81 MG ECTAB PO SCH (08:20)
[2023-01-26] MEDS: cephALEXin 500 MG CAP PO SCH (08:20)
[2023-01-26] MEDS ORDERED: POTASSIUM CHLORIDE CRTAB 20 MEQ TABCR PO STA (08:26)
[2023-01-26] MEDS: INSULIN ASPART PER UNIT CHARGE SC SCH ×2 (09:03→12:42)
--- NOTE | 2023-01-26 12:47 | Hospitalist Progress Note ---
Date of Service January 26, 2023 Assessment & Plan (1) Sepsis: (2) Acute cystitis without hematuria: (3) Acute on chronic HFrEF (heart failure with reduced ejection fraction): (4) HTN (hypertension): (5) NSVT (nonsustained ventricular tachycardia): (6) ASHLEY (obstructive sleep apnea): (7) Hypothyroidism: (8) Diabetes mellitus, type II: Plan Mr. Parham is a 77 year old gentleman with past medical history notable for permanent atrial fibrillation, HFmrEF, DMTII, hypothyroidism who is admitted for concern for acute heart failure exacerbation iso of possible infection. Presented with severe weakness and tired #Sepsis secondary to multifocal pneumonia #Acute cystitis,urinalysis showing pinpoint growth #BPH -sepsis criteria met by HR(despite a fib), WBC, infection, and lactic acidosis -Hypertensive, monitor volume status-encourage PO intake -Lactate improved with initial abx, 3--> 2.4 -Received intravenous vancomycin and Zosyn later on vancomycin was discontinued -Has been on Zosyn now and feeling a lot better -Clinically much better without any fever and or chills -We will give her oral Keflex and doxycycline to cover multifocal pneumonia for a total of 10 days -Has had an episode of confusion yesterday with more weakness and tiredness and noted to have fever this morning -He has been feeling better but will not send him home today -Repeat blood cultures have been taken and will continue oral antibiotic for now -Remains afebrile, repeat blood cultures are negative and white count has been normalized -He has been feeling a lot better and ambulating in the room without any difficulties -He is back to his baseline and no more confusion -He will be discharged home this afternoon #Acute on HFmrEF (EF 45% 08/05/2022) #Obstructive Coronary Artery Disease s/p DANIELA Lcx/RCA #Hypertension #HLD Home regimen: Metoprolol XL 150mg BID, Furosemide 20mg prn (2-3 x weekly) Declined statin/zetia/PCSK9 historically Trop negative, BNP 253 Minimal congestion on chest x-ray Received intravenous Lasix on admission Furosemide is on hold now We will continue with his home medications as before #NSVT -discontinue amiodarone -Resume home metoprolol and the dose was increased as per commercial food instructor -Cardiology consult -appreciate input and recommendation -EKG shows paced rhythm with PACs and no more ventricular tachycardia -No further investigation as per cardiology -Cardiac symptoms are stable-heart rate remains around 96 #Permanent Atrial Fibrilliation -Continue metoprolol 150mg BID -Continue Warfarin -INR remains therapeutic at 2.4 -Need to follow-up with coagulation clinic as he will be taking antibiotic -We will check INR tomorrow #Generalized weakness -likely related to ongoing infectious process, treat above -CT head negative -PT/OT ordered-has had PT and OT evaluation #Asymmetric lower extremity edema -+DDimer, INR within range, reports compliance -CTA - and Dopplers negative -CTM #DMTII A1C On Metformin 1000mg BID and tresiba 20U qhs (dose not use semaglutide reportedly) -Continue glargine 20 U qhs and SSI #Hypothyroidism -Continue synthroid 150mcg #ASHLEY #Pulm Hypertension Noncompliant with CPAP, refuses trial DVT Warfarin GI/Bowel Regimen prn Lytes: replace prn, keep K >4, M >3, phos >3 iso multiple cardiac comorbidities We will monitor for him today and possible discharge tomorrow He will be discharged home this afternoon Admission and Anticipated Discharge Date Admission Date: January 22, 2023 Subjective 01/23/2023 The patient was seen and examined in medical telemetry unit He has been feeling better and denies any chest pain, palpitation or shortness of breath He did did not have any other symptoms He wants to go home 01/24/2023 The patient was seen and examined in medical telemetry unit He does not have any more chest pain and her palpitation Denies any urinary symptoms and denies any cough, phlegm or shortness of breath He will be discharged home this afternoon 01/25/2023 The patient was seen and examined in medical telemetry unit He has been feeling much better but is still remains weak and lethargic Has had fever this morning Will not send him home today 01/26/2023 The patient was seen and examined in medical telemetry unit He has been feeling much better and did not have any more fever and or chills He has been ambulating without any difficulties and he wants to go home today Denies any symptoms with urination, no more nausea and or vomiting Review of Systems Review of Systems: All systems reviewed and are unremarkable except as noted below Physical Exam Physical Exam: Lying in bed comfortably Constitutional: well nourished; no acute distress Eyes: PERRL, conjunctivae normal, anicteric sclerae ENMT: external ear and nose normal, oropharynx normal Neck: trachea midline, no thyromegaly Respiratory: no respiratory distress Auscultation: + diminished lung sounds and + crackles (Minimal bibasilar crackles) Cardiovascular: Rate/Rhythm: regular rate and regular rhythm; not tachycardic Heart Sounds: normal S1 and normal S2; no murmur Extremities: no edema Gastrointestinal (Abdomen): Inspection/Auscultation: normal bowel sounds; abdomen not distended Percussion/Palpation: abdomen soft; abdomen nontender Neurologic: normal touch/pain/proprioception and moves all extremities; no focal motor deficits Psychiatric: A+Ox3, euthymic affect Lymphatic: no cervical or axillary lymphadenopathy Results & Data Results & Data Vital Signs (Past 12 Hours) Vital Signs Temp Pulse Resp BP Pulse Ox O2 Del Method 01/26/23 11:15 36.7 C 88 18 146/78 H 94 Room Air 01/26/23 07:40 37 C 99 H 20 159/94 H 93 Room Air 01/26/23 03:01 37.5 C 93 H 18 129/85 93 Room Air Laboratory Results Short CBC 01/26/23 Range/Units 07:29 WBC 7.31 (4.8-10.8) K/ul Hgb 11.4 L (14.0-18.0) g/dl Hct 32.7 L (42.0-52.0) % Plt Count 154 (130-400) K/uL BMP 01/26/23 07:29 Sodium 135 L Potassium 3.4 L Chloride 103 Carbon Dioxide 25 BUN 14 Creatinine 0.91 Glucose 110 H Calcium 8.6 Medications Administered Current Inpatient Medications Acetaminophen (Acetaminophen 325 Mg Tab) 650 mg PO Q4H PRN PRN Reason: Pain or Fever Stop: 02/21/23 19:26 Last Admin: 01/25/23 04:52 Dose: 650 mg Aspirin (Aspirin 81 Mg Ectab) 81 mg PO QAM [facility] Stop: 02/22/23 08:59 Last Admin: 01/26/23 08:20 Dose: 81 mg Calcium Carbonate (Calcium Carbonate 500 Mg Chewable Tab) 500 mg PO Q6H PRN PRN Reason: Indigestion Stop: 02/23/23 15:58 Last Admin: 01/25/23 03:51 Dose: 500 mg Cephalexin HCl (Cephalexin 500 Mg Cap) 500 mg PO TID [facility]; Protocol Stop: 01/31/23 13:59 Last Admin: 01/26/23 08:20 Dose: 500 mg Dextrose (Dextrose 50% 50 Ml Syringe) 25 - 50 ml IV UD PRN; Protocol PRN Reason: Hypoglycemia Protocol Stop: 02/21/23 19:26 Diclofenac Sodium (Diclofenac Sod 1% Gel 100 Gm Tube) 2 gm EXT BID [facility]; Protocol Stop: 02/23/23 08:59 Last Admin: 01/26/23 08:20 Dose: 2 gm Doxycycline Hyclate (Doxycycline Hyclate 100 Mg Cap) 100 mg PO BID [facility] Stop: 01/31/23 10:59 Last Admin: 01/26/23 08:20 Dose: 100 mg Glucagon (Glucagon For Inj 1 Mg Vial) 1 mg SQ UD PRN; Protocol PRN Reason: Hypoglycemia Protocol Stop: 02/21/23 19:26 Glucose (Glucose 10 Tab/Tube) 4 - 8 tab PO UD PRN; Protocol PRN Reason: Hypoglycemia Treatment Stop: 02/21/23 19:26 Glucose (Glucose 40% Gel 15 Gm Tube) 15 - 30 gm PO UD PRN; Protocol PRN Reason: Hypoglycemia Protocol Stop: 02/21/23 19:26 Insulin Aspart (Insulin Aspart Per Unit Charge) 0 units SC ACHS [facility] Stop: 02/21/23 20:59 Last Admin: 01/26/23 12:42 Dose: 1 units Insulin Glargine (Lantus Per Unit Charge) 20 units SQ QPM [facility] Stop: 02/21/23 20:59 Last Admin: 01/25/23 20:21 Dose: 20 units Levothyroxine Sodium (Levothyroxine Sodium 150 Mcg Tablet) 150 mcg PO DAILYBB [facility] Stop: 02/22/23 06:29 Last Admin: 01/26/23 05:51 Dose: 150 mcg Metoprolol Succinate (Metoprolol Succ 50mg Ext Rel Tab) 200 mg PO QAM [facility] Stop: 02/23/23 08:59 Last Admin: 01/26/23 08:20 Dose: 200 mg Metoprolol Succinate (Metoprolol Succ 50mg Ext Rel Tab) 150 mg PO QPM [facility] Stop: 02/22/23 20:59 Last Admin: 01/25/23 20:18 Dose: 150 mg Miscellaneous (Carbohydrates For Hypoglycemia ) 15 - 30 gm PO UD PRN PRN Reason: Hypoglycemia Protocol Stop: 02/21/23 19:26 Nitroglycerin (Nitroglycerin Sl 0.4 Mg/Tab Tab) 0.4 mg SL Q5M PRN PRN Reason: Chest Pain Stop: 02/21/23 19:26 Polyethylene Glycol (Polyethylene (Miralax) 17 Gm Pack) 17 gm PO DAILY PRN PRN Reason: Constipation Stop: 02/21/23 19:26 Last Admin: 01/23/23 20:54 Dose: 17 gm Tamsulosin HCl (Tamsulosin Hcl 0.4 Mg Cap) 0.4 mg PO HS [facility] Stop: 02/22/23 20:59 Last Admin: 01/25/23 20:18 Dose: 0.4 mg Warfarin Sodium (Warfarin Sod 5 Mg Tab) 5 mg PO [email or web address] [facility] Stop: 02/21/23 20:59 Last Admin: 01/22/23 22:24 Dose: 5 mg Warfarin Sodium (Warfarin Sod 10 Mg Tab) 10 mg PO [email or web address] [facility] Stop: 02/22/23 15:59 Last Admin: 01/25/23 15:26 Dose: 10 mg
--- NOTE | 2023-01-26 16:38 | Discharge Summary ---
Date of Service January 26, 2023 Admission HPI Per Admitting Provider Mr. Parham is a 77 year old gentleman with past medical history notable for permanent atrial fibrillation, HFmrEF, DMTII, hypothyroidism who presented to [facility] ED due to sudden generalized weakness. Patient states that he has experienced dysuria for over two weeks, but felt it was related to "spices" in his food. He notes his has been recently ill, and not sure if he has "what she does." He feels great when his heart rates are "less than 90" and denies any chest pain or palpitations. Patient states that he has been in his usual state of health, outside of dysuria, until this morning when he felt nauseated after breakfast and experienced a sudden "spell" of generalized weakness, which resolved upon presentation to ED. Patient difficult to keep on track and answer questions directly, minimizing symptoms or concerns. He reports chronic lower extremity swelling, with L > R--stating it runs in the family. He endorses compliance with his medications and denies other acute concerns. Patient states he last took his lasix this morning, but notes that he sometimes "avoids" it. Patient also reports issues with urinary hesitancy. In the ED, vitals were notable for BP 110-150s, HR [id number] 100s, and O2 sat of 95% on RA CT Head ordered: negative, CTA negative for PE, CXR with likely edema EKG atrial fibrillation Labs notable for leukocytosis to 13.73, K 3.4, Mag 1.4 BNP 253, Lactate 3-->2.4 ED reported episodes of NSVT and started amiodarone; reports device check negative ED interventions: amiodarone, ctx Patient to be admitted to PCU/tele for further evaluation and management of acute cysitis and acute on chronic heart failure exacerbation. Admission Exam Per Admitting Provider Physical Exam: GENERAL APPEARANCE: AxOx4, no acute distress, conversational HEENT: NC, AT. MMM. EOMI, clear conjunctiva, oropharynx clear. NECK: Supple without lymphadenopathy. No stiffness or restricted ROM. HEART: irregularly irregular LUNGS: bibasilar crackles appreciated ABDOMEN: Soft, nontender, nondistended with good bowel sounds heard. BACK: No CVAT, no obvious deformity. EXTREMITIES: bilateral nonpitting edema, L>R; venous statsis changes NEUROLOGICAL: Grossly nonfocal. Alert and oriented, moving all 4 extremities. CN not formally tested but appear grossly intact. Principal Diagnosis Sepsis secondary to multifocal pneumonia, atrial fibrillation on Coumadin, sleep apnea Discharge Exam Lying in bed comfortably Constitutional well nourished; no acute distress Eyes PERRL, conjunctivae normal, anicteric sclerae ENMT external ear and nose normal, oropharynx normal Neck trachea midline, no thyromegaly Respiratory no respiratory distress Auscultation: + diminished lung sounds and + crackles (Minimal bibasilar crackles) Cardiovascular Rate/Rhythm: regular rate and regular rhythm; not tachycardic Heart Sounds: normal S1 and normal S2; no murmur Extremities: no edema Gastrointestinal (Abdomen) Inspection/Auscultation: normal bowel sounds; abdomen not distended Percussion/Palpation: abdomen soft; abdomen nontender Neurologic normal touch/pain/proprioception and moves all extremities; no focal motor deficits Psychiatric A+Ox3, euthymic affect Lymphatic no cervical or axillary lymphadenopathy Discharge Data Allergies Allergy/AdvReac Type Severity Reaction Status Date / Time pollen extracts Allergy Intermediate SNEEZING, Verified 01/22/23 16:39 CONGESTION glipizide AdvReac Intermediate gi upset Verified 01/22/23 16:39 Consultations 01/22/23 17:08 ED Decision to Admit Stat 01/22/23 19:27 Consult Cardiology Routine Ordered Studies 01/22/23 14:45 CT abd pelvis IV con only Stat 01/22/23 15:33 CT angio chest PE protocol Stat 01/22/23 17:42 CT head/brain wo con Stat 01/22/23 18:13 US venous duplex leg [US venous doppler LE LT] Stat Hospital Course (1) Sepsis: (2) Acute cystitis without hematuria: (3) Acute on chronic HFrEF (heart failure with reduced ejection fraction): (4) HTN (hypertension): (5) NSVT (nonsustained ventricular tachycardia): (6) ASHLEY (obstructive sleep apnea): (7) Hypothyroidism: (8) Diabetes mellitus, type II: Plan Mr. Parham is a 77 year old gentleman with past medical history notable for permanent atrial fibrillation, HFmrEF, DMTII, hypothyroidism who is admitted for concern for acute heart failure exacerbation iso of possible infection. Presented with severe weakness and tired #Sepsis secondary to multifocal pneumonia #Acute cystitis,urinalysis showing pinpoint growth #BPH -sepsis criteria met by HR(despite a fib), WBC, infection, and lactic acidosis -Hypertensive, monitor volume status-encourage PO intake -Lactate improved with initial abx, 3--> 2.4 -Received intravenous vancomycin and Zosyn later on vancomycin was discontinued -Has been on Zosyn now and feeling a lot better -Clinically much better without any fever and or chills -We will give her oral Keflex and doxycycline to cover multifocal pneumonia for a total of 10 days -Has had an episode of confusion yesterday with more weakness and tiredness and noted to have fever this morning -He has been feeling better but will not send him home today -Repeat blood cultures have been taken and will continue oral antibiotic for now -Remains afebrile, repeat blood cultures are negative and white count has been normalized -He has been feeling a lot better and ambulating in the room without any difficulties -He is back to his baseline and no more confusion -He will be discharged home this afternoon #Acute on HFmrEF (EF 45% 08/05/2022) #Obstructive Coronary Artery Disease s/p DANIELA Lcx/RCA #Hypertension #HLD Home regimen: Metoprolol XL 150mg BID, Furosemide 20mg prn (2-3 x weekly) Declined statin/zetia/PCSK9 historically Trop negative, BNP 253 Minimal congestion on chest x-ray Received intravenous Lasix on admission Furosemide is on hold now We will continue with his home medications as before #NSVT -discontinue amiodarone -Resume home metoprolol and the dose was increased as per director of sustainable design -Cardiology consult -appreciate input and recommendation -EKG shows paced rhythm with PACs and no more ventricular tachycardia -No further investigation as per cardiology -Cardiac symptoms are stable-heart rate remains around 96 #Permanent Atrial Fibrilliation -Continue metoprolol 150mg BID -Continue Warfarin -INR remains therapeutic at 2.4 -Need to follow-up with coagulation clinic as he will be taking antibiotic -We will check INR tomorrow #Generalized weakness -likely related to ongoing infectious process, treat above -CT head negative -PT/OT ordered-has had PT and OT evaluation #Asymmetric lower extremity edema -+DDimer, INR within range, reports compliance -CTA - and Dopplers negative -CTM #DMTII A1C On Metformin 1000mg BID and tresiba 20U qhs (dose not use semaglutide reportedly) -Continue glargine 20 U qhs and SSI #Hypothyroidism -Continue synthroid 150mcg #ASHLEY #Pulm Hypertension Noncompliant with CPAP, refuses trial DVT Warfarin GI/Bowel Regimen prn Lytes: replace prn, keep K >4, M >3, phos >3 iso multiple cardiac comorbidities We will monitor for him today and possible discharge tomorrow He will be discharged home this afternoon Total Time Total Time Spent Total Time Spent (In Minutes): 45 minutes Discharge Plan Discharge Items Patient Disposition: Home - Self-Care Reason For Visit: CHEST PAIN Discharge Diagnosis: Sepsis secondary to multifocal pneumonia, atrial fibrillation on Coumadin, sleep apnea Condition on Discharge: Good Activity: Resume your previous activity Non-emergency contact: Primary Care Provider Call non-emergency contact if: you have any medication questions and your symptoms worsen Follow-up/Referrals: Darren Santos MD [Primary Care Provider] - (Date & Time 01/31/2023 11:00 AM Provider Darren Santos MD [facility] ) Diet: Carb Consistent or DM2 and Heart Healthy Addtl Attending Provider Instructions: Please take precautions to avoid falls Finish the course of antibiotic Take your medications as advised Pl Keep Appointments with healthcare providers You need to have a follow-up appointment with coagulation clinic within the next 2 to 3 days Pending Studies at Discharge: No Stand-Alone Forms: My [employer], Smoking Cessation Medications and DC Order Prescriptions: New doxycycline hyclate 100 mg Capsule 100 mg PO BID Qty: 14 0RF cephalexin 500 mg Capsule 500 mg PO TID Qty: 21 0RF tamsulosin 0.4 mg Capsule 0.4 mg PO HS Qty: 30 0RF diclofenac sodium [Voltaren Arthritis Pain] 1 % Gel 2 g EXT BID Qty: 50 0RF Continued aspirin [Vinny Low Dose Aspirin] 81 mg Tablet,Delayed Release (Dr/Ec) 81 mg PO DAILY metoprolol succinate 100 mg Tablet Extended Release 24 Hr 150 mg PO BID nitroglycerin 0.4 mg Tablet, Sublingual 0.4 mg sublingual DIRECTED PRN (Reason: Chest Pain) metformin 1,000 mg tablet 1,000 mg PO BID warfarin 5 mg tablet See Rx Instructions .ROUTE .COMPLEX Rx Instructions: 5 mg; TAKES 5 MG ON WEDNESDAYS & TUESDAY EVENINGS, THEN 10 MG ON SUN, MON, TU, THURS, & FRI EVENINGS levothyroxine 150 mcg tablet 150 mcg PO DAILYBB potassium chloride 10 mEq tablet,ER particles/crystals 10 meq PO DAILY PRN (Reason: TAKES WHEN USES LASIX.) Discontinued furosemide [Lasix] 20 mg Tablet 20 mg PO DAILY PRN (Reason: Fluid Retention) Discharge Orders: Discharge Order (Routine); Ordered 01/26/23 Ordered By: Bry Bejarano Admission Data Admit Date/Time: 01/22/23 17:21 Attending Provider: Bry Bejarano Admit Provider: Nadia Vargas Primary Care Provider: Darren Santos Other Providers: Nadia Vargas Other Interventions: Discharge Summary Assessment (RN) Last Done: 01/26/23 13:18
--- NOTE | 2023-01-29 07:55 | Discharge Summary ---
Date of Service January 28, 2023 Admission HPI Per Admitting Provider Mr. Parham is a 77 year old gentleman with past medical history notable for permanent atrial fibrillation, HFmrEF, DMTII, hypothyroidism who presented to [facility] ED due to sudden generalized weakness. Patient states that he has experienced dysuria for over two weeks, but felt it was related to "spices" in his food. He notes his has been recently ill, and not sure if he has "what she does." He feels great when his heart rates are "less than 90" and denies any chest pain or palpitations. Patient states that he has been in his usual state of health, outside of dysuria, until this morning when he felt nauseated after breakfast and experienced a sudden "spell" of generalized weakness, which resolved upon presentation to ED. Patient difficult to keep on track and answer questions directly, minimizing symptoms or concerns. He reports chronic lower extremity swelling, with L > R--stating it runs in the family. He endorses compliance with his medications and denies other acute concerns. Patient states he last took his lasix this morning, but notes that he sometimes "avoids" it. Patient also reports issues with urinary hesitancy. In the ED, vitals were notable for BP 110-150s, HR [id number] 100s, and O2 sat of 95% on RA CT Head ordered: negative, CTA negative for PE, CXR with likely edema EKG atrial fibrillation Labs notable for leukocytosis to 13.73, K 3.4, Mag 1.4 BNP 253, Lactate 3-->2.4 ED reported episodes of NSVT and started amiodarone; reports device check negative ED interventions: amiodarone, ctx Patient to be admitted to PCU/tele for further evaluation and management of acute cysitis and acute on chronic heart failure exacerbation. Admission Exam Per Admitting Provider Physical Exam: GENERAL APPEARANCE: AxOx4, no acute distress, conversational HEENT: NC, AT. MMM. EOMI, clear conjunctiva, oropharynx clear. NECK: Supple without lymphadenopathy. No stiffness or restricted ROM. HEART: irregularly irregular LUNGS: bibasilar crackles appreciated ABDOMEN: Soft, nontender, nondistended with good bowel sounds heard. BACK: No CVAT, no obvious deformity. EXTREMITIES: bilateral nonpitting edema, L>R; venous statsis changes NEUROLOGICAL: Grossly nonfocal. Alert and oriented, moving all 4 extremities. CN not formally tested but appear grossly intact. Principal Diagnosis Sepsis secondary to multifocal pneumonia, atrial fibrillation on Coumadin, sleep apnea Discharge Exam Lying in bed comfortably Constitutional well nourished; no acute distress Eyes PERRL, conjunctivae normal, anicteric sclerae ENMT external ear and nose normal, oropharynx normal Neck trachea midline, no thyromegaly Respiratory no respiratory distress Auscultation: + diminished lung sounds and + crackles (Minimal bibasilar crackles) Cardiovascular Rate/Rhythm: regular rate and regular rhythm; not tachycardic Heart Sounds: normal S1 and normal S2; no murmur Extremities: no edema Gastrointestinal (Abdomen) Inspection/Auscultation: normal bowel sounds; abdomen not distended Percussion/Palpation: abdomen soft; abdomen nontender Neurologic normal touch/pain/proprioception and moves all extremities; no focal motor deficits Psychiatric A+Ox3, euthymic affect Lymphatic no cervical or axillary lymphadenopathy Discharge Data Allergies Allergy/AdvReac Type Severity Reaction Status Date / Time pollen extracts Allergy Intermediate SNEEZING, Verified 01/22/23 16:39 CONGESTION glipizide AdvReac Intermediate gi upset Verified 01/22/23 16:39 Consultations 01/22/23 17:08 ED Decision to Admit Stat 01/22/23 19:27 Consult Cardiology Routine Ordered Studies 01/22/23 14:45 CT abd pelvis IV con only Stat 01/22/23 15:33 CT angio chest PE protocol Stat 01/22/23 17:42 CT head/brain wo con Stat 01/22/23 18:13 US venous duplex leg [US venous doppler LE LT] Stat Hospital Course (1) Sepsis: (2) Acute cystitis without hematuria: (3) Acute on chronic HFrEF (heart failure with reduced ejection fraction): (4) HTN (hypertension): (5) NSVT (nonsustained ventricular tachycardia): (6) ASHLEY (obstructive sleep apnea): (7) Hypothyroidism: (8) Diabetes mellitus, type II: Plan Mr. Parham is a 77 year old gentleman with past medical history notable for permanent atrial fibrillation, HFmrEF, DMTII, hypothyroidism who is admitted for concern for acute heart failure exacerbation iso of possible infection. Presented with severe weakness and tired #Sepsis secondary to multifocal pneumonia #Acute cystitis,urinalysis showing pinpoint growth #BPH -sepsis criteria met by HR(despite a fib), WBC, infection, and lactic acidosis -Hypertensive, monitor volume status-encourage PO intake -Lactate improved with initial abx, 3--> 2.4 -Received intravenous vancomycin and Zosyn later on vancomycin was discontinued -Has been on Zosyn now and feeling a lot better -Clinically much better without any fever and or chills -We will give her oral Keflex and doxycycline to cover multifocal pneumonia for a total of 10 days -Has had an episode of confusion yesterday with more weakness and tiredness and noted to have fever this morning -He has been feeling better but will not send him home today -Repeat blood cultures have been taken and will continue oral antibiotic for now -Remains afebrile, repeat blood cultures are negative and white count has been normalized -He has been feeling a lot better and ambulating in the room without any difficulties -He is back to his baseline and no more confusion -He will be discharged home this afternoon #Acute on HFmrEF (EF 45% 08/05/2022) #Obstructive Coronary Artery Disease s/p DANIELA Lcx/RCA #Hypertension #HLD Home regimen: Metoprolol XL 150mg BID, Furosemide 20mg prn (2-3 x weekly) Declined statin/zetia/PCSK9 historically Trop negative, BNP 253 Minimal congestion on chest x-ray Received intravenous Lasix on admission Furosemide is on hold now We will continue with his home medications as before #NSVT -discontinue amiodarone -Resume home metoprolol and the dose was increased as per compounding assistant -Cardiology consult -appreciate input and recommendation -EKG shows paced rhythm with PACs and no more ventricular tachycardia -No further investigation as per cardiology -Cardiac symptoms are stable-heart rate remains around 96 #Permanent Atrial Fibrilliation -Continue metoprolol 150mg BID -Continue Warfarin -INR remains therapeutic at 2.4 -Need to follow-up with coagulation clinic as he will be taking antibiotic -We will check INR tomorrow #Generalized weakness -likely related to ongoing infectious process, treat above -CT head negative -PT/OT ordered-has had PT and OT evaluation #Asymmetric lower extremity edema -+DDimer, INR within range, reports compliance -CTA - and Dopplers negative -CTM #DMTII A1C On Metformin 1000mg BID and tresiba 20U qhs (dose not use semaglutide reportedly) -Continue glargine 20 U qhs and SSI #Hypothyroidism -Continue synthroid 150mcg #ASHLEY #Pulm Hypertension Noncompliant with CPAP, refuses trial DVT Warfarin GI/Bowel Regimen prn Lytes: replace prn, keep K >4, M >3, phos >3 iso multiple cardiac comorbidities We will monitor for him today and possible discharge tomorrow He will be discharged home this afternoon Total Time Total Time Spent Total Time Spent (In Minutes): 35 minutes Discharge Plan Discharge Items Patient Disposition: Home - Self-Care Reason For Visit: CHEST PAIN Discharge Diagnosis: Sepsis secondary to multifocal pneumonia, atrial fibrillation on Coumadin, sleep apnea Condition on Discharge: Good Activity: Resume your previous activity Non-emergency contact: Primary Care Provider Call non-emergency contact if: you have any medication questions and your symptoms worsen Follow-up/Referrals: Darren Santos MD [Primary Care Provider] - (Date & Time 01/31/2023 11:00 AM Provider Darren Santos MD [facility] ) Diet: Carb Consistent or DM2 and Heart Healthy Addtl Attending Provider Instructions: Please take precautions to avoid falls Finish the course of antibiotic Take your medications as advised Pl Keep Appointments with healthcare providers You need to have a follow-up appointment with coagulation clinic within the next 2 to 3 days Pending Studies at Discharge: No Stand-Alone Forms: My [employer], Smoking Cessation Medications and DC Order Prescriptions: New doxycycline hyclate 100 mg Capsule 100 mg PO BID Qty: 14 0RF cephalexin 500 mg Capsule 500 mg PO TID Qty: 21 0RF tamsulosin 0.4 mg Capsule 0.4 mg PO HS Qty: 30 0RF diclofenac sodium [Voltaren Arthritis Pain] 1 % Gel 2 g EXT BID Qty: 50 0RF Continued aspirin [Vinny Low Dose Aspirin] 81 mg Tablet,Delayed Release (Dr/Ec) 81 mg PO DAILY metoprolol succinate 100 mg Tablet Extended Release 24 Hr 150 mg PO BID nitroglycerin 0.4 mg Tablet, Sublingual 0.4 mg sublingual DIRECTED PRN (Reason: Chest Pain) metformin 1,000 mg tablet 1,000 mg PO BID warfarin 5 mg tablet See Rx Instructions .ROUTE .COMPLEX Rx Instructions: 5 mg; TAKES 5 MG ON WEDNESDAYS & TUESDAY EVENINGS, THEN 10 MG ON SUN, MON, TU, THURS, & FRI EVENINGS levothyroxine 150 mcg tablet 150 mcg PO DAILYBB potassium chloride 10 mEq tablet,ER particles/crystals 10 meq PO DAILY PRN (Reason: TAKES WHEN USES LASIX.) Discontinued furosemide [Lasix] 20 mg Tablet 20 mg PO DAILY PRN (Reason: Fluid Retention) Discharge Orders: Discharge Order (Routine); Ordered 01/26/23 Ordered By: Bry Bejarano Admission Data Admit Date/Time: 01/22/23 17:21 Attending Provider: Bry Bejarano Admit Provider: Nadia Vargas Primary Care Provider: Darren Santos Other Interventions: Discharge Summary Assessment (RN) Last Done: 01/26/23 13:18
== END 2023-01-26 14:17 | disposition home or self-care (01) | DRG 871 ==
LOC: ED 14:14 → SUATTDRO 17:21 → EDINP 17:21 → 2N 20:39
DX: Z91.048 Other nonmedicinal substance allergy status; I34.0 Nonrheumatic mitral (valve) insufficiency; Z79.84 Long term (current) use of oral hypoglycemic drugs; E11.9 Type 2 diabetes mellitus without complications; I47.20 Ventricular tachycardia, unspecified; N30.00 Acute cystitis without hematuria; E87.20 Acidosis, unspecified; Z87.891 Personal history of nicotine dependence; N40.0 Benign prostatic hyperplasia without lower urinary tract symptoms; Z79.890 Hormone replacement therapy; J18.9 Pneumonia, unspecified organism; A41.9 Sepsis, unspecified organism; I25.2 Old myocardial infarction; I25.10 Atherosclerotic heart disease of native coronary artery without angina pectoris; Z79.01 Long term (current) use of anticoagulants; I50.23 Acute on chronic systolic (congestive) heart failure; Z95.0 Presence of cardiac pacemaker; E03.9 Hypothyroidism, unspecified; G47.33 Obstructive sleep apnea (adult) (pediatric); Z79.899 Other long term (current) drug therapy; Z79.82 Long term (current) use of aspirin; Z88.8 Allergy status to other drugs, medicaments and biological substances; I48.21 Permanent atrial fibrillation